=== PATIENT | male | born 1940 | race Caucasian/White ===

== ENCOUNTER → 2016-12-15 | Outpatient (CLI) | payer MEDICARE, OTHER ==
[~2016-12-15] MED LIST: ALEVE220 MG PO; ALLERGY RELIEF180 MG PO; AMLODIPINE BESY10 MG PO; ASPIRIN81 M1; CALCIMIN-300300 MG PO; CALCIUM CITRATE1 TA6; CLARITIN10 MG; CLONIDINE0.2 MG; COMBIGAN EYE DROP; DAILY MULTI VIT1 TAB PO; Diltiazem180 MG; LABETALOL200 MG; LIPITOR80 MG PO; MICARDIS HCT; MINIPRESS1 MG PO; MINIPRESS2 M1 PO; MULTIPLE VITAMI1 CAP PO; MULTIVITAMIN1 CTB; PLAVIX75 MG PO; POTASSIUM CHLOR8 ME1; PRAVACHOL80 M1 GT; PRAVASTATIN SOD40 MG PO; PROVENTIL0.09 MG/A1 INH; PROVENTIL0.09 MG/AC INH; RANITIDINE150 MG; THE MEDICINE S300 M1
== END | disposition home or self-care (01) ==
LOC: RAD 11:24
DX: M19.011 Primary osteoarthritis, right shoulder (principal)

== ENCOUNTER 2017-04-14 08:43 | Inpatient (IN) | payer MEDICARE, OTHER ==
[2017-04-14] VITALS (9 sets, daily range): BP systolic 98–174; BP diastolic 50–88
[~2017-04-14] VITALS: Ht 180.3 cm; Wt 100.0 kg
--- NOTE | ~2017-04-14 | PR ---
[place], [place] PROGRESS NOTE NAME: SRIDHAR RESTREPO UNIT #: [id number] ROOM: 403 DOCTOR: CRISTIAN SAL MD,ALIX BIRTHDATE: [birth year] DOS: 04/19/2017 PULMONARY FOLLOWUP SUBJECTIVE: The patient has been noted comfortable, continued to show reduction in the respiratory symptom. Denies symptoms of chest pain, hemoptysis. Denies any edema, pain of the lower extremities. VITAL SIGNS: Normal temperature, respiratory rate 20, heart rate 64, blood pressure 140/87. The pulse oxygen saturation of the patient is 3 liters 99% saturation. HEENT: No acute change. NECK: Supple. CARDIOVASCULAR: S1, S2 audible. LUNGS: Without any wheeze or crackles. ABDOMEN: Soft, nontender. EXTREMITIES: Without any acute edema. LABORATORY DATA: Culture of the sputum, normal jhoana. Blood culture ____ no bacterial growth. IMPRESSION: 1. The patient with resolving current nodular infiltration in the lung for the patient treated currently for the acute superimposed bacterial infection as well as involvement of the lung for the patient with human pneumometavirus for the patient as well. 2. Chronic obesity. 3. Resolving wheezing and exacerbation of bronchial asthma. PLAN OF TREATMENT: No changes. Proceed with bronchoscopy tomorrow as planned. No other change in treatment at this time otherwise will be necessary. All the supportive plan of management and care. Usual care. All other therapies. ALIX FOSTER MD CM:PNTRANS [phone] ALIX SAL MD 04/19/174 interface
--- NOTE | ~2017-04-14 | PR ---
[place], [place] PROGRESS NOTE NAME: SRIDHAR RESTREPO UNIT #: [id number] ROOM: 403 DOCTOR: CRISTIAN SAL MD,ALIX BIRTHDATE: [birth year] DOS: 04/21/2017 SUBJECTIVE: The patient just used the bathroom. As he came back, he was not using the oxygen supplementation. He went to the bathroom and noted significant tachypnea which was noted for this patient with shortness of breath. Coughing has been improving. The patient had bronchoscopy completed yesterday successfully without any difficulty. The cough has been noted significantly improved for the patient after that. OBJECTIVE: VITAL SIGNS: For the patient this morning were noted with normal temperature, respiratory rate 18, heart rate 74, blood pressure 150/78. Pulse oxygen saturation on 2 liters nasal cannula was 98% saturation. HEENT: Examination shows moderate obesity. Head was atraumatic. Eyes nonicterus. NECK: Supple. CARDIOVASCULAR: S1, S2 audible. LUNGS: Noted without any wheeze or crackles at this time. ABDOMEN: Soft, nontender. EXTREMITIES: Without any acute edema. LABORATORY DATA: Preliminary culture of the bronchial washing shows normal bacterial jhoana with Gram stain of yesterday, many white blood cells, rare gram-positive cocci in pairs, rare budding yeast and some mold was also noted in the fungal stain. CBC this morning, hemoglobin 12, hematocrit 36.1, WBC count normal, platelet count were normal. BMP of patient: BUN 30, creatinine was normal, glucose normal. IMPRESSION: 1. The patient who has been currently noted with nodular infiltration in the right lower lobe, status post bronchoscopy, still noted significant muscle deconditioning for this patient with current acute illness. The viral panel for the patient was also done for bronchial washing of the patient with pending results. 2. Abnormal MILENA for this patient was also noted, significance unknown at this time with current nodular opacities. Shortness of breath was still noted for the patient with combination of muscle deconditioning actually resolving, exacerbation of bronchial asthma. 3. Mild azotemia related to the corticosteroids. PLAN OF TREATMENT: The best recommendation at this time for the management will be assessment for the group home facility for physical therapy and occupational therapy. Gradual reduction of the corticosteroids. Continuation of the other supportive therapy, plan of management including bronchodilators. Usual care. [place], [place] PROGRESS NOTE NAME: SRIDHAR RESTREPO UNIT #: [id number] ROOM: 403 DOCTOR: ALIX GARVIN MD BIRTHDATE: [birth year] ALIX FOSTER MD CM:PNTRANS [id number] ALIX SAL MD 04/21/171728 interface
--- NOTE | ~2017-04-14 | PROC NOTE ---
[place], [place] PROCEDURE NOTE NAME: SRIDHAR RESTREPO UNIT #: [id number] ROOM: 403 DOCTOR: CRISTIAN SAL MD,ALIX BIRTHDATE: [birth year] DOS: 04/20/2017 PREOPERATIVE DIAGNOSIS: Abnormal pulmonary infiltration and nodular opacities in the right lower lobe. POSTOPERATIVE DIAGNOSES: Removal of several plugs and mucus endobronchial tree bilaterally with the additional washing was taken in the right lower lobe as well. PROCEDURE DESCRIPTION: Informed consent obtained. The patient brought to the OR. The patient placed in a supine position. Conscious sedation administered by the Anesthesia Department. After achieving appropriate sedation, airway introduced into the mouth. Bronchoscope advanced to the airway into laryngeal area. Epiglottis and vocal cords were seen. The vocal cords were noted symmetrical ____ assessed during the procedure. Bronchoscope entered vocal cord and tracheal lumen. Tracheal lumen shows moderate amount of thick mucoid secretion with purulent secretion suctioned out the yael level. The yael was noted sharp. Right upper, right middle, right lower, left upper, lingular lower bronchi were all examined and noted with thick plugs and mucus endobronchial tree bilaterally suctioned out with normal saline wash. Additional bronchial washing taken in the right lower lobe subsegments as well. The patient tolerated the procedure very well without difficulty. Postoperative findings were discussed with patient's spouse in detail. ALIX FOSTER MD CM:PROCNOTE:PROCEDURE NOTE [id number] ALIX SAL MD
--- NOTE | ~2017-04-14 | PR ---
[place], [place] PROGRESS NOTE NAME: SRIDHAR RESTREPO UNIT #: [id number] ROOM: 403 DOCTOR: CRISTIAN SAL MD,ALIX BIRTHDATE: [birth year] DOS: 04/16/2017 SUBJECTIVE: The patient has been still noted coughing, which has been noted with minimal sputum expectoration. Denies symptoms of chest pain. Still feeling ill. Denies symptoms of chest pain or any abdominal pain. The patient was noted shortness of breath with exertion, but not at rest. OBJECTIVE: VITAL SIGNS: Normal temperature, respiratory 21, heart rate 72, blood pressure 155/80-147/82. The pulse oxygen saturation on 4 liters nasal cannula 94% saturation recorded. HEENT: Examination shows no acute change. NECK: Supple. CARDIOVASCULAR: S1, S2 audible. LUNGS: Still noted crackles in the lower portion of the lungs bilaterally. ABDOMEN: Soft, nontender. EXTREMITIES: No edema. LABORATORY DATA: BMP today: BUN 33, creatinine 1.41, glucose 134. CBC this morning, hemoglobin 11.7, hematocrit 34.8, platelet count was normal. Blood culture for patient shows no bacterial growth, 12th of this month. Final culture results were pending. Influenza A and B nasal washing noted negative. The respiratory viral panel was sent, which was pending. CT scan of the chest that was done for the patient was personally reviewed, shows evidence of multiple nodular infiltration noted in the lungs bilaterally following the bronchovascular bundle. The nodule which was noted in the right lower lobe is also correlating to the chest x-ray finding as well. IMPRESSION: 1. The patient who has been currently noted with symptoms or findings of acute pneumonia, but nodular opacity was noted in the lungs bilaterally at the present time. The nodules are following the bronchovascular bundle. Possibility of pneumonia would be considered along with other differential diagnosis of septic emboli and other illnesses. The patient would be also considered for such as vasculitis, connective tissue disorder and other abnormalities. 2. History of moderate obesity. 3. Bronchial asthma with acute exacerbation as well. PLAN OF MANAGEMENT: The patient's antibiotic coverage will be changed for the coverage of gram positive infection coverage as vancomycin will be added to the treatment. The dose of Solu-Medrol at this time will be decreased. Interstitial disease workup and vasculitis workup will be ordered, which will be taken today. Collect the sputum for Gram stain and culture if the patient is able to expectorate any sputum. Additional treatment changes to be done for this patient based on the progression of the illness. Usual care. All other supportive plan of management and therapies. [place], [place] PROGRESS NOTE NAME: SRIDHAR RESTREPO UNIT #: [id number] ROOM: [facility] DOCTOR: AILX GARVIN MD BIRTHDATE: [birth year] ALIX FOSTER MD CM:AURA [id number] ALIX SAL MD 04/16/17 1305 interface
--- NOTE | ~2017-04-14 | PROC NOTE ---
[place], [place] PROCEDURE NOTE NAME: SRIDHAR RESTREPO UNIT #: [id number] ROOM: 403 DOCTOR: SADE BLAND BIRTHDATE: [birth year] DOS: 04/17/2017 MODIFIED BARIUM SWALLOW STUDY REPORT PRIMARY PHYSICIAN: Dr. Amador RADIOLOGIST: Dr. Benítez ROOM NUMBER: 403/2 HISTORY OF PRESENT ILLNESS: The patient is a 76-year-old male admitted on 04/14/2017 due to shortness of breath. Chest x-ray revealed "new bibasilar infiltrates" and patient was diagnosed with right lower lobe pneumonia. MBSS order placed to assess for aspiration. Patient has been receiving a regular diet with thin liquids. PREVIOUS MEDICAL HISTORY: Includes recurrent pneumonia, COPD, CHF, CVA, obesity and hypertension. GENERAL COMMENTS: The patient remained awake, alert and cooperative throughout the exam. He denied difficulty swallowing, including coughing/choking while eating or drinking. Patient endorsed history of reflux, which he is managing with medication. Also, endorsed occasional sticking sensation when eating/drinking (pointed to mid chest to indicate where sensation occurs). He reported that he was tolerating a regular diet with thin liquids prior to hospitalization. Patient noted that he is naturally a slow eater. MBSS METHODS; This exam was viewed in the lateral plane. The patient self-fed the following barium impregnated consistencies: Single sips of thin liquid via cup x 2, multiple consecutive sips of thin liquid via cup x 1, teaspoon of puree x 1 and bite of coarse solid x 1. Anterior cervical hardware noted at C4-C5. ORAL PHASE: Adequate bolus acceptance with no anterior loss. AP bolus transit was timely. Mastication of coarse solid was mildly prolonged, but complete. Posterior loss noted with puree/solids. No oral residue appreciated. PHARYNGEAL PHASE: Initiation of the swallow response was timely. HLE was adequate in both the superior and anterior planes. Transient penetration noted with sips of thin liquids. No aspiration observed with any consistency. Base of tongue to posterior pharyngeal wall contact mildly reduced with subsequent mild amounts of residue maintained in vallecula with puree/solids. This cleared with subsequent swallows. UES: Unremarkable. IMPRESSION: The patient presents with mild oropharyngeal dysphagia classified by prolonged mastication, posterior loss, transient penetration and reduced base of tongue to posterior pharyngeal wall contact. No aspiration was observed during this exam and the patient remains appropriate for a regular diet with thin liquids. Patient's aspiration risk factors include mild dysphagia, history [place], [place] PROCEDURE NOTE NAME: SRIDHAR RESTREPO UNIT #: [id number] ROOM: 403 DOCTOR: SADE BLAND BIRTHDATE: [birth year] of CVA and diagnosis of GERD and COPD. Adherence to precautions below is recommended to reduce this risk. RECOMMENDATIONS: 1. Continue current diet: Regular foods with thin liquids. 2. Aspiration precautions: Fully upright, awake and alert for all p.o., small bites/sips, slow rate of feeding, oral care at least b.i.d. Findings and recommendations were reviewed with the patient who expressed understanding and agreement. PLAN OF CARE: No further GROUNDS PERSON followup is indicated at this time. Please reconsult if additional concerns for aspiration/dysphagia arise. Thank you for consulting. Please contact the Speech Language Pathology Department at [phone] with any questions or concerns. Sade Laboy CM:PROCNOTE:PROCEDURE NOTE [id number] SAED BLAND
--- NOTE | ~2017-04-14 | PR ---
[place], [place] PROGRESS NOTE NAME: SRIDHAR RESTREPO UNIT #: [id number] ROOM: 403 DOCTOR: CRISTIAN SAL MD,ALIX BIRTHDATE: [birth year] DOS: 04/18/2017 SUBJECTIVE: He has been noted with partial reduction of the respiratory symptom at this time. Denies symptoms of chest pain or any abdominal pain. The patient denies symptoms of hemoptysis. The oxygen supplementation continued. The wheezing was noted partially decreased. OBJECTIVE: VITAL SIGNS: Normal temperature, respiratory rate 20, heart rate 56, blood pressure 152/78, 126/72. Pulse oxygen saturation of the patient noted 2 liters 96% saturation. HEAD, EARS, EYES, NOSE AND THROAT: Examination shows no acute change. NECK: Supple. CARDIOVASCULAR: S1, S2 is audible. LUNGS: The patient was noted with moderate expiratory wheezing of the lungs. ABDOMEN: Soft, nontender. Bowel sounds present. CENTRAL NERVOUS SYSTEM: Noted. Nonfocal. LABORATORY DATA: Parainfluenza 1 virus with a level was noted elevated serology went into 16 ____ antibody were noted as negative. Urine for legionella antigen was noted as negative and strep pneumo antigen was noted negative as well. The chest x-ray of the patient that was done this morning, showed reduction of the pulmonary infiltration. IMPRESSION: 1. The patient's parainfluenza infection as well as a human metapneumovirus infection with possibly superimposed bacterial infection with ongoing acute exacerbation of bronchial asthma. The patient was noted with gradual improvement in the respiratory symptom. 2. Nodular opacity was noted related to possible infection other etiology being considered and being investigated. PLAN OF MANAGEMENT: Plan of bronchoscopy on Thursday morning as well. In the meantime, continue the patient on bronchodilators, oxygen supplementation and the corticosteroids. The dose of Solu-Medrol will be decreased to 40 mg b.i.d. at this time. Additional treatment changes, continue be made based on progression of the illness. The n.p.o. past midnight for midnight of Thursday. Recommend to discontinue all of the other antibiotic. The only antibiotic might need to be considered would be a short spectrum antibiotic either Zithromax, Levaquin or similar antibiotics. There is no need for a very broad-spectrum intravenous antibiotic usage. [place], [place] PROGRESS NOTE NAME: SRIDHAR RESTREPO UNIT #: [id number] ROOM: 403 DOCTOR: ALIX GARVIN MD BIRTHDATE: [birth year] ALIX FOSTER MD CM:AURA [id number] ALIX SAL MD 04/18/17 1506 interface
--- NOTE | ~2017-04-14 | PR ---
[place], [place] PROGRESS NOTE NAME: SRIDHAR RESTREPO UNIT #: [id number] ROOM: 403 DOCTOR: CRISTIAN SAL MD,ALIX BIRTHDATE: [birth year] DOS: 04/17/2017 SUBJECTIVE: The patient was seen and examined on 04/17/2017. He has been noted at this time with partial reduction of respiratory symptoms, still noted coughing and wheezing intermittently. Denies symptoms of chest pain. Shortness of breath occurs with exertion, general malaise and fatigue were noted. OBJECTIVE: VITAL SIGNS: For the patient which has been recorded shows the temperature noted normal, respiratory rate 20, heart rate 65, blood pressure 131/60 to 128/64. The pulse oxygen saturation on 3 liters nasal cannula 97% saturation recorded. HEENT: No acute change. NECK: Supple. CARDIOVASCULAR: S1, S2 audible. LUNGS: Noted with moderate decreased breath sounds with expiratory wheezing. No crackles. ABDOMEN: Soft, nontender with moderate obesity. Bowel sounds present. EXTREMITIES: Without any edema. LABORATORY DATA: The patient's CBC today: WBC count 7.5, hemoglobin 11, hematocrit 33.1, platelet count 161,000. CMP of the patient on 04/17/2017, BUN 38, creatinine was normal, glucose 127. Magnesium 2.7. Respiratory viral panel that was sent became available, noted positive for human metapneumovirus positivity. C-reactive protein was noted mildly elevated. ESR noted 44, mildly elevated as well. Echocardiogram of the patient was completed on 04/16/2017 was stated by the Cardiology service of Dr. Alvarado had finding of left ventricular ejection fraction of 60-65% with mild diastolic dysfunction and remaining echocardiogram was noted normal. The blood culture for the patient from 12th of this month, so far no bacterial growth noted. IMPRESSION: The patient who has been currently noted with human metapneumovirus infection with a lower respiratory tract infection, which has been seen in this virus as pneumonia; however, the appearance of those infiltration noted usual with nodular configuration. Superimposed bacterial infection can be completely excluded as well. Additional diagnosis of noninfectious has been noted in consideration as well. PLAN OF TREATMENT: No change in antibiotic needs to be done. Continue bronchodilators and corticosteroids with oxygen supplementation as necessary. Symptomatic management of cough. The patient has been getting Levaquin for this patient at the present time. Repeat another chest x-ray in the morning. Possibly consideration of bronchoscopy in the morning as well. The wheezing for this patient may last several weeks, which has been described in the description of this virus illness. Additional treatment changes continues to be made based on the progression of the illness. [place], [place] PROGRESS NOTE NAME: SRIDHAR RESTREPO UNIT #: [id number] ROOM: [facility] DOCTOR: ALIX GARVIN MD BIRTHDATE: [birth year] ALIX FOSTER MD CM:PNMARIANA [id number] ALIX SAL MD 04/17/172205 interface
--- NOTE | ~2017-04-14 | CON ---
[place], [place] REPORT OF CONSULTATION NAME: SRIDHAR RESTREPO UNIT #: [id number] ROOM: 403 DOCTOR: YOHANNES GARVIN MDULAM BIRTHDATE: [birth year] DOS: 04/15/2017 REASON FOR CONSULTATION: To assess the patient for current ongoing acute respiratory complaints. The consultation was requested for this patient. Consultation was done for the patient requested by the hospitalist services HISTORY OF PRESENT ILLNESS: The patient is a 76-year-old white male for the patient who has been treated by ____. He had been seen in the office couple of times the patient is 2007, but has not had any followup since then. The patient was noted with 5 mm pulmonary nodule at this time in the right lower lobe. He came into the hospital. The patient reported having increased shortness of breath ongoing for the past few days. He stated the symptoms started after some cold symptoms of the patient prior to that. He has been noted with cough for this patient with some sputum expectoration. He was also noted with symptoms of increased wheezing. He denies any symptoms of chest pain. Denies any symptoms of hemoptysis. REVIEW OF SYSTEMS: CONSTITUTIONAL: Fatigue and tiredness reported without symptoms of fever or chills. EYES: Denies any burning, redness, or tenderness. EARS, NOSE, THROAT SYMPTOMS: Sore throat, hoarseness, otalgia, postnasal drainage or epistaxis. CARDIOVASCULAR: Denies angina pain, edema, or pain of the lower extremity. GASTROINTESTINAL: Dysphagia, nausea, vomiting, diarrhea, abdominal pain, hematemesis, melena, or hematochezia. SKIN: Denies any lesions or rashes. CENTRAL NERVOUS SYSTEM: No dizziness, diplopia or syncopal episodes. Remaining systems were reviewed with the patient, they were noted all negative. PAST MEDICAL HISTORY: 1. The patient was known with history of essential hypertension. 2. Abdominal aortic aneurysm. 3. Bronchial asthma. 4. Chronic obstructive pulmonary disease. 5. Pulmonary nodule with mild mediastinal lymphadenopathy. The patient in 2007 without further followup and further followups unknown. 6. History of CVA for this patient in 2013. 7. Degenerative arthritis. PAST SURGICAL HISTORY: 1. Abdominal endovascular stent placement and graft in 2013. 2. History of appendectomy. 3. Hernia repair. 4. Cardiac catheterization and coronary stents insertion. 5. Three back surgeries. 6. Cervical spine surgery as laminectomy. 7. Surgery of the right hip. [place], [place] REPORT OF CONSULTATION NAME: SRIDHAR RESTREPO UNIT #: [id number] ROOM: 403 DOCTOR: CRISTIAN SAL MD,ALIX BIRTHDATE: [birth year] SOCIAL HISTORY: The patient started smoking cigarettes as a teenager, upto 1.5 pack of cigarettes per day, which was discontinued approximately in 1994. He denies any occupation related pulmonary exposure. The patient drinks 1 beer a day. The patient is and has six children. FAMILY HISTORY: The patient's mother at the age of about 50 years old patient for pulmonary embolism. The father at age of 60+ years old for complication of multiple myeloma. MEDICATIONS: The home medications were reported as use of Proventil HFA inhaler, Norvasc, aspirin, Lipitor, calcium carbonate, Plavix, fexofenadine, which is Marti, labetalol, multivitamin, Prevacid, ranitidine and Micardis with hydrochlorothiazide. DRUG ALLERGIES: He reported allergy to the LISINOPRIL CAUSING ANGIOEDEMA. PHYSICAL EXAMINATION: GENERAL: This is a 76-year-old white male who has been currently sitting on the bed without any acute distress. The patient's height recorded 5 feet 11 inches, weight of 220 pounds, BMI 30.7 by the nursing staff. VITAL SIGNS: The patient's temperature noted normal, respiratory rate 18-24, heart rate 75-80, blood pressure 181/73-130/70. The intake for the patient was noted 1290 mL, output 900 mL. Pulse oxygen saturation with 3 liters cannula was 92% and a room air on admission 89% saturation recorded. HEENT: Shows head was atraumatic. Eyes nonicterus. NECK: Supple. CARDIOVASCULAR: S1, S2 is audible. LUNGS: Noted moderate decreased breath sounds, scattered expiratory wheezing and crackles in the lungs bilaterally. ABDOMEN: Noted soft, mild obesity. Bowel sounds present. EXTREMITIES: Without any edema, clubbing, cyanosis. CENTRAL NERVOUS SYSTEM: Does not show any gross focal neurologic deficit. Cranial nerves 2-12 intact. SKIN: Visible skin, no lesions or rashes. MUSCULOSKELETAL: Without any acute deformities. LABORATORY DATA: CBC done on admission 04/12/2017 WBC count 3.7, hemoglobin 11.3, hematocrit 33.1, platelet count was normal. The CMP of the patient that was done on admission, BUN 22, creatinine 1.44, glucose 138, AST 51. Remaining LFTs were normal. Lactic acid 0.9 yesterday. CBC of the patient this morning, WBC count 4.7, hemoglobin 12, hematocrit 35.0, platelet count was normal. CMP this morning, BUN 22, creatinine 1.34, glucose 150. AST still elevated at 46. The PT, PTT this morning were normal. One view chest x-ray that was done for the patient this morning for the patient was personally reviewed. It shows increased interstitial marking the patient was noted, possibility of nodules. The patient in the right lower lobe cannot be completely excluded. There was no lateral view available. There was no recent chest x-ray available for the patient in the past one year or so to be assessed. The chest x-ray of the patient that was done on 04/16/2017 does not show any of these abnormalities. [place], [place] REPORT OF CONSULTATION NAME: SRIDHAR RESTREPO UNIT #: [id number] ROOM: 403 DOCTOR: CRISTIAN SAL MD,ALIX BIRTHDATE: [birth year] IMPRESSION: 1. The patient who has been admitted to the hospital, was noted with increased respiratory symptom current radiologic abnormality, possible consideration of congestive heart failure would be considered along with possibility of acute pneumonia including viral syndrome for the patient viral pneumonia. 2. The patient with elevation of creatinine. The patient has underlying chronic kidney disease or not unknown. Possibility acute kidney injury. The patient could be considered may be related to the prerenal and intravascular volume depletion. 3. History of past tobacco use with tobacco cessation done in 1994 approximately as 1-1.5 pack of cigarettes per day. The patient assessment in 2004 rather 2007, but noted consistent with diagnosis of bronchial asthma, not COPD at that time. However, interval development of COPD, which may have developed the patient can be completely excluded. 4. Leukopenia, etiology is unclear, may be related to the underlying infection or other reasons to be assessed including bone marrow problems. 5. Rule out to pulmonary nodule for the patient more than the side, which was previous noted to be assessed further. 6. Rule out interstitial lung disease because of the current crackles. 7. Acute exacerbation of bronchial asthma considered. PLAN OF MANAGEMENT: Best defined for the patient current abnormality. CT scan of the chest will be ordered at the present time for this patient without contrast because of elevation of creatinine. Further recommendation assessment will be ordered based on the current assessment. The patient was also noted with the leukopenia and mild anemia. The patient may be related to current illness to be assessed. Ordered the nasopharyngeal wash for this patient for the influenza infection and the viral panel. Other supportive therapy, plan of management and care. Usual treatment. Additional treatment changes to be made for the patient based on the progression of the illness. Usual care. All other supportive plan of management and therapies. Review of the CT scan of the chest once available for the patient as well. Also ordered the routine culture of the sputum as well. Thanks for allowing me to participate in the care of this patient. ALIX FOSTER MD CM:CONSTR:REPORT OF CONSULTATION 0928 04/15/17 1422 interface
--- NOTE | ~2017-04-14 | PR ---
[place], [place] PROGRESS NOTE NAME: SRIDHAR RESTREPO UNIT #: [id number] ROOM: 403 DOCTOR: CRISTIAN SAL MD,ALIX BIRTHDATE: [birth year] DOS: 04/22/2017 SUBJECTIVE: He has been noted without any acute distress at the present time. Shortness of breath has been still noted with exertion. He has been assessed for home oxygen need as well. The retirement facility placement has been denied by the insurance. The patient was planned for home discharge today by the primary care attending. OBJECTIVE: VITAL SIGNS: The patient's blood pressure 150/72, heart rate of 65, respiration 18, temperature normal. The pulse oxygen saturation of the patient recorded as 96% on 2 liters. HEENT: No acute change. NECK: Supple. CARDIOVASCULAR: S1, S2 audible. LUNGS: Without any wheeze or crackles at present time. ABDOMEN: Soft, nontender. EXTREMITIES: Without any acute edema. IMPRESSION: 1. The patient with acute pneumonia with a human metapneumovirus with acute exacerbation of COPD, all resolving progressively. 2. Reduced complement level. The patient was also noted with abnormal MILENA, but anti-double stranded DNA was noted as negative. PLAN OF MANAGEMENT: No changes in the plan of therapy for the patient at this time. Continue the patient's current therapy, plan of care as previously. Usual care. After discharge, patient is recommended about assessment in my office for further pulmonary assessment. ALIX FOSTER MD CM:PNTRANS 114 [id number] ALIX SAL MD 04/22/171821 interface
--- NOTE | ~2017-04-14 | PR ---
[place], [place] PROGRESS NOTE NAME: SRIDHAR RESTREPO UNIT #: [id number] ROOM: 403 DOCTOR: ALIX GARVIN MD BIRTHDATE: [birth year] DOS: 04/20/2017 SUBJECTIVE: The patient has been noted comfortable at this time, sitting on his bed. He was n.p.o. past midnight and bronchoscopy planned for today. Still noted intermittent cough. The patient without any sputum expectoration or shortness of breath and wheezing were noted decreased. There were no symptoms of chest pain or any abdominal pain. OBJECTIVE: VITAL SIGNS: For the patient which were recorded. The patient shows normal temperature, respiratory rate of 20, heart rate 62, blood pressure 131/62. Pulse oxygen saturation on 2 liters nasal cannula 96% saturation. HEENT: No acute change. NECK: Supple. CARDIOVASCULAR: S1, S2 audible. LUNGS: The patient was noted without any wheezing or crackles. ABDOMEN: Soft and obese. EXTREMITIES: Without any acute edema. SKIN: Without any lesions. LABORATORY DATA: The connective tissue disorder workup for the patient became available. The patient's MILENA was noted abnormal with a homogenous and nucleolar pattern for the patient with the dilution of 1:160 was noted. These findings were noted sometimes in people with CREST syndrome, SLE drug induced or other etiologies. Creatinine was noted as normal today. CBC this morning, mild anemia, normal WBC count and platelet count. IMPRESSION: 1. Nodular infiltration of the lungs with the patient with current finding of acute exacerbation of bronchial asthma in the patient as well. 2. Infection which has been noted with the respiratory viral infection as human metapneumovirus infection isolated from the nasopharyngeal wash. PLAN OF TREATMENT: Proceed with the bronchoscopy as planned for this patient at this time. Additional treatment changes will be made based on progression of the illness. Titrate oxygen to maintain a saturation of 92% or greater. Reduce the dose of Solu-Medrol for patient 40 mg b.i.d. as well. The wheezing has been improving. Continue bronchodilators administration. Supportive therapy, plan of management and other care. Usual treatment, and other therapies. [place], [place] PROGRESS NOTE NAME: SRIDHAR RESTREPO UNIT #: [id number] ROOM: 403 DOCTOR: ALIX GARVIN MD BIRTHDATE: [birth year] ALIX FOSTER MD CM:PNTRANS [id number] ALIX SAL MD 04/21/17 0106 interface
[~2017-04-14 08:43] MED LIST changes: -CALCIUM CITRATE1 TA6; +CALCIUM500 M1 PO
[2017-04-14 09:41] LABS: BASO % 0.3 % (0.0-1.0); EOS # 0.1 10*3/uL (0.0-0.4); EOS % 2.2 % (1.0-4.0); HEMATOCRIT 33.1 % (42.0-52.0); HEMOGLOBIN 11.3 g/dl (14.0-18.0); LYMPH # 0.4 10*3/uL (1.3-4.4); MEAN CELL VOLUME 93.2 fl (80.0-94.0); MEAN CORPUSCULAR HGB 31.8 pg (27.0-31.0); MEAN CORPUSCULAR HGB CONC 34.1 g/dl (33.0-37.0); MEAN PLATELET VOLUME 10.1 fl (9.6-12.3); MONO # 0.5 10*3/uL (0.1-1.0); MONO % 12.3 % (3.0-9.0); NEUT # 2.7 10*3/uL (2.3-7.9); NEUT % 72.9 % (47.0-73.0); PLATELET COUNT AUTOMATED 141 10*3/uL (130-400); RED BLOOD COUNT 3.55 10*6/uL (4.50-5.90); RED CELL DISTRI WIDTH 13.6 % (0-14.5); WHITE BLOOD COUNT 3.7 10*3/uL (4.8-10.8)
[2017-04-14 09:57] LABS: ALBUMIN 3.4 gm/dl (3.1-4.5); CREATININE 1.44 mg/dL (0.70-1.30); POTASSIUM 4.3 mmol/L (3.5-5.1)
--- NOTE | 2017-04-14 12:59 | NUR ---
A 76, admitted to , under the services of SRIDHAR Velásquez DO with a diagnosis of RIGHT LOWER LOBE PNEUMONIA. Chief complaint is SOB. Patient arrived via bed from ER. Monitor applied. Initial assessment completed. Vital signs taken and recorded. SRIDHAR VELÁSQUEZ DO notified of admission to the unit. Orders received. See assessment for past medical history, medications and allergies. Patient and/or family oriented to unit. [facility] visitation policy reviewed. Clothing/patient valuable form completed. JOANNA DICK
--- NOTE | 2017-04-14 13:30 | NUR ---
DR BAL NOTIFIED OF ADMISSION BP. NO NEW ORDERS.
--- NOTE | 2017-04-14 14:19 | NUR ---
MED REC UPDATED BY LIST PROVIDED BY PATIENT.
--- NOTE | 2017-04-14 17:22 | NUR ---
PHYSICIAN WAS NOTIFIED OF DR. CRISTIAN DODSON. RESPONSE OF NOTIFICATION WAS OK THANK YOU. JOANNA DICK
--- NOTE | 2017-04-14 19:34 | NUR ---
AT 1840 PT INSTRUCTED ON FLUTTER VALVE.PT INSTRUCTED TO USE Q2HRS WHILE AWAKE..NON PRODUCTIVE COUGH NOTED
[2017-04-15] VITALS: BP 160/67
[2017-04-15 04:01] VITALS: BP 156/72
[2017-04-15 08:00] VITALS: BP 181/73
--- NOTE | 2017-04-15 08:15 | NUR ---
Wellness Nurse in to talk to patient. Patient states lives at home with his . There are 4 steps in the home. Physician: Dr. Jim Miller Pharmacy: [facility] services: none Patient's level of ADLs: MINIMAL ASSIST Patient has working utilities: yes DME: cane Follow-up physician's appointment after d/c: will be made by hospitalist nurse director upon discharge Does patient want to access PORTAL?: no Discharge plan discussed with patient. He live at home with his . There are 4 steps to get into the home. There is also a wheelchair ramp. He is independent in his ADLs and uses a cane for ambulation due to hip pain. When medically stable he will be discharged to home. WARNER GALAN
[2017-04-15 08:22] LABS: ALBUMIN 3.5 gm/dl (3.1-4.5); BUN 22 mg/dl (7-24); CHLORIDE 102 mmol/L (98-107); CREATININE 1.34 mg/dL (0.70-1.30); HDL CHOLESTEROL 39 mg/dl (40-60); SGOT/AST 46 IU/L (3-35); SGPT/ALT 64 U/L (12-78); SODIUM 138 mmol/L (136-145); TOTAL PROTEIN 7.4 gm/dL (6.4-8.2)
[2017-04-15 08:23] LABS: LYMPH # 0.4 10*3/uL (1.3-4.4); LYMPH % 9.4 % (27.0-41.0); MEAN CELL VOLUME 93.8 fl (80.0-94.0); MEAN CORPUSCULAR HGB 32.2 pg (27.0-31.0); MEAN CORPUSCULAR HGB CONC 34.3 g/dl (33.0-37.0); MEAN PLATELET VOLUME 10.4 fl (9.6-12.3); MONO # 0.3 10*3/uL (0.1-1.0); PLATELET COUNT AUTOMATED 159 10*3/uL (130-400); RED BLOOD COUNT 3.73 10*6/uL (4.50-5.90); RED CELL DISTRI WIDTH 13.2 % (0-14.5); WHITE BLOOD COUNT 4.7 10*3/uL (4.8-10.8)
[2017-04-15 08:26] LABS: POTASSIUM 4.2 mmol/L (3.5-5.1)
[2017-04-15 08:34] LABS: ALKALINE PHOSPHATASE 77 U/L (45-117); CHOLESTEROL 169 mg/dL (<200); LDL CHOLESTEROL 98 mg/dL (9-159); TRIGLYCERIDES 158 mg/dl (<150); VLDL CHOLESTEROL 32 mg/dL (6-40)
[2017-04-15 08:50] LABS: PHOSPHOROUS 3.5 mg/dL (2.5-4.9)
[2017-04-15 09:03] LABS: ACT PARTIAL THROMBO TIME 24.9 SECONDS (20.8-31.5)
[2017-04-15 09:53] LABS: VITAMIN D, 25-HYDROXY 25.1 ng/mL (30-100)
[2017-04-15 12:00] VITALS: BP 153/69
[2017-04-15 16:00] VITALS: BP 155/58
[2017-04-15 20:00] VITALS: BP 156/50
[2017-04-16] VITALS: BP 147/82
--- NOTE | 2017-04-16 00:36 | NUR ---
24 HR chart check completed.
[2017-04-16 07:23] LABS: HEMATOCRIT 34.8 % (42.0-52.0); HEMOGLOBIN 11.7 g/dl (14.0-18.0); LYMPH # 0.5 10*3/uL (1.3-4.4); LYMPH % 7.3 % (27.0-41.0); MEAN CELL VOLUME 94.1 fl (80.0-94.0); MEAN CORPUSCULAR HGB 31.6 pg (27.0-31.0); MEAN CORPUSCULAR HGB CONC 33.6 g/dl (33.0-37.0); MEAN PLATELET VOLUME 10.8 fl (9.6-12.3); MONO # 0.4 10*3/uL (0.1-1.0); MONO % 4.8 % (3.0-9.0); NEUT # 6.4 10*3/uL (2.3-7.9); NEUT % 87.5 % (47.0-73.0); PLATELET COUNT AUTOMATED 190 10*3/uL (130-400); RED CELL DISTRI WIDTH 13.5 % (0-14.5); WHITE BLOOD COUNT 7.3 10*3/uL (4.8-10.8)
[2017-04-16 07:55] LABS: ALBUMIN 3.6 gm/dl (3.1-4.5); CREATININE 1.41 mg/dL (0.70-1.30); PHOSPHOROUS 3.6 mg/dL (2.5-4.9); POTASSIUM 4.6 mmol/L (3.5-5.1); TOTAL PROTEIN 7.4 gm/dL (6.4-8.2)
[2017-04-16 08:00] VITALS: BP 155/82
--- NOTE | 2017-04-16 08:00 | NUR ---
Health Education Director in to see patient. No new needs or request at this time. When medically stable he will be discharged to home.
--- NOTE | 2017-04-16 08:00 | NUR ---
PT SITTING UP IN BED, STATES SOME SOB AT REST AND WITH EXERTION, PT STILL HAS I&E WHEEZES HEARD THROUGHOUT, STATES HE IS STARTING TO HAVE A PRODUCTIVE COUGH-SPUTUM CUP PROVIDED, 4L NC INTACT. HRR, PT DENIES CP, STATES SOME RIB PAIN FROM COUGHING, PT DENIES ANY NEED FOR PAIN MEDS, TRACE EDEMA NOTED TO BLE. CALL LIGHT WITHIN REACH.
[2017-04-16 12:00] VITALS: BP 140/69
--- NOTE | 2017-04-16 13:52 | NUR ---
PHYSICAL THERAPY PAtient evaluated on 4, full evaluation to follow. Continue with PT as per plan of carw with fall, 02 and acute debility precautions. Home with home health RN and PT and radhames mcgee assist. PAtient is mooderate complexity via chart review, tests and evaluation: [id number]. Thank you for this referral. Suzanna Lechuga,PT
[2017-04-16 15:09] LABS: MYCOPLASMA PNEUMONIAE IGG <100 U/mL (0-99); MYCOPLASMA PNEUMONIAE IGM <770 U/mL (0-769)
[2017-04-16 16:00] VITALS: BP 152/73
--- NOTE | 2017-04-16 16:00 | NUR ---
PT RESTING IN BED, NO DISTRESS NOTED. CALL LIGHT WITHIN REACH.
[2017-04-16 20:00] VITALS: BP 127/82
[2017-04-17] VITALS: BP 146/69
--- NOTE | 2017-04-17 00:21 | NUR ---
24 HR chart check completed.
[2017-04-17 02:07] LABS: ADENOVIRUS Negative (Negative); INFLUENZA A Negative (Negative); INFLUENZA B Negative (Negative); METAPNEUMOVIRUS Positive (Negative); PARAINFLUENZA 1 Negative (Negative); PARAINFLUENZA 2 Negative (Negative); PARAINFLUENZA 3 Negative (Negative); RHINOVIRUS Negative (Negative); RSV A Negative (Negative); RSV B Negative (Negative)
[2017-04-17 07:07] LABS: IMMUNOGLOBULIN IgE 002170 23 IU/mL (0-100)
[2017-04-17 07:23] LABS: HEMATOCRIT 33.1 % (42.0-52.0); LYMPH # 0.6 10*3/uL (1.3-4.4); LYMPH % 8.2 % (27.0-41.0); MEAN CORPUSCULAR HGB 31.3 pg (27.0-31.0); MEAN CORPUSCULAR HGB CONC 33.2 g/dl (33.0-37.0); MEAN PLATELET VOLUME 10.3 fl (9.6-12.3); MONO # 0.5 10*3/uL (0.1-1.0); MONO % 6.2 % (3.0-9.0); NEUT # 6.3 10*3/uL (2.3-7.9); NEUT % 84.5 % (47.0-73.0); PLATELET COUNT AUTOMATED 161 10*3/uL (130-400); RED BLOOD COUNT 3.52 10*6/uL (4.50-5.90); RED CELL DISTRI WIDTH 13.3 % (0-14.5); WHITE BLOOD COUNT 7.5 10*3/uL (4.8-10.8)
[2017-04-17 07:37] LABS: ALBUMIN 3.2 gm/dl (3.1-4.5); ALKALINE PHOSPHATASE 62 U/L (45-117); BUN 38 mg/dl (7-24); CHLORIDE 102 mmol/L (98-107); PHOSPHOROUS 3.2 mg/dL (2.5-4.9); POTASSIUM 4.6 mmol/L (3.5-5.1); SGOT/AST 33 IU/L (3-35); SGPT/ALT 60 U/L (12-78); SODIUM 139 mmol/L (136-145); TOTAL PROTEIN 6.6 gm/dL (6.4-8.2)
[2017-04-17 08:00] VITALS: BP 128/64
[2017-04-17 08:14] LABS: IMMUNOGLOBULIN M, QNT 43 mg/dL (15-143); RHEUMATOID ARTHRITIS FACTOR <10.0 IU/mL (0.0-13.9)
--- NOTE | 2017-04-17 08:15 | NUR ---
Branch Office Administrator in to see patient. He is sitting up on the edge of his bed. Discussed home health for nurse and PT when he is medically stable to be discharged. Given a list of agencies. He states he would like to use whoever is affiliated with the hospital. Told him that was [facility] and he is agreeable. tool planner/social and political studies professor to follow.
--- NOTE | 2017-04-17 08:25 | NUR ---
PHYSICAL THERAPY Pt eating his breakfast at this time, will stop back later. HELEN SHETTY PROJECT MANAGER FINANCE.
--- NOTE | 2017-04-17 10:39 | NUR ---
PHYSICAL THERAPY Back this AM to gait Higinio, Pt finished with his breakfast, Alll transfers were independent. Gait with Pt's straight cane 390' X 1, on portable o2 at 4 L with supervision X 1, no LOB and did not get SOB with this. Pt said that he is doing Ex to his legs, marching, LAQ's, and ankle pumps. HELEN SHETTY DATA CONVERSION OPERATOR.
[2017-04-17 12:00] VITALS: BP 131/65
--- NOTE | 2017-04-17 14:00 | NUR ---
PT. ASSESSED FOR HOME O2: AT REST ON RA: SPO2 92%, HR 82, RR 20, BP 122/55 AMBULATING 20FT PT'S SPO2 DROPPED TO 87% WITH INCREASED WOB O2 APPLIED AT 2L AND SPO2 IMPROVED TO 94%, PT. AMBULATED AN ADDITIONAL 200FT WITH SPO2 REMAINING AT 94% AFTER AMBLUATION SPO2 96%, HR 86, RR 24, BP 150/100 NURSE NOTIFIED
--- NOTE | 2017-04-17 14:49 | NUR ---
SPEECH PATHOLOGY CONSULT RECEIVED AND APPRECIATED TO INSTRUMENTALLY EVALUATE PT'S OROPHARYNGEAL SWALLOW FUNCTION. GENERAL COMMENTS: PT SEEN AT BEDSIDE FOR CLINICAL EVALUATION AND IN RADIOLOGY FOR MBSS. MR. RESTREPO WAS AWAKE, ALERT, AND COOPERATIVE THROUGHOUT BOTH ENCOUNTERS. HE WAS RECEIVING 3L O2/NC. PT DENIED H/O SWALLOWING DIFFICULTY INCLUDING COUGHING/CHOKING WHEN EATING OR DRINKING. HE ENDORSED REFLUX WHICH HE IS MANAGING WITH MEDICATION AND ENDORSED OCCASIONAL STICKING SENSATION WHEN EATING/DRINKING (POINTED MIDCHEST TO INDICATE WHERE SENSATION OCCURS). MR. RESTREPO REPORTED HE HAS BEEN TOLERATING A REGULAR DIET WITH THIN LIQUIDS AND NOTED THAT HE IS A SLOW EATER. ORAL MECHANISM AND MOTOR SPEECH EXAM WERE UNREMARKABLE. PT IS EDENTULOUS WITH UPPER AND LOWER DENTURES IN PLACE. GENERAL MILD TREMULOUSNESS NOTED DURING MOVEMENT. MBSS: PLEASE SEE DICTATED REPORT FOR FULL DETAIL OF EXAM. BRIEFLY, EXAM WAS VIEWED IN THE LATERAL PLANE. PT SELF-FED SIPS OF THIN LIQUID VIA CUP X2, MULTIPLE CONSECUTIVE SIPS OF THIN LIQUID VIA CUP X1, TSP OF PUREE X1, AND BITE OF COARSE SOLID X1. ORAL PHASE C/B MILDLY PROLONGED MASTICATION OF SOLIDS AND POSTERIOR LOSS OF PUREE/SOLIDS. SMALL AMOUNT OF TRANSIENT PENETRATION NOTED WITH SIPS OF THIN LIQUID. NO ASPIRATION OBSERVED WITH ANY CONSISTENCY. IMPRESSIONS: NO ASPIRATION OBSERVED DURING MBS STUDY. TRANSIENT PENETRATION OF THIN LIQUIDS ONLY. PT REMAINS APPROPRIATE FOR A REGULAR DIET WITH THIN LIQUIDS. HIS RISK FACTORS FOR ASPIRATION INCLUDE H/O CVA AND DX OF COPD AND GERD; ADHERENCE TO PRECAUTIONS BELOW IS RECOMMENDED TO REDUCE THIS RISK. RECOMMENDATIONS: 1. CONTINUE CURRENT DIET - REGULAR FOODS WITH THIN LIQUIDS 2. ASPIRATION PRECAUTIONS - FULLY UPRIGHT, AWAKE, AND ALERT FOR ALL PO - SMALL BITES/SIPS, SLOW RATE OF FEEDING - ORAL CARE AT LEAST BID - STOP EATING/DRINKING IF EXPERIENCING SOB PT EDUCATED REGARDING FINDINGS AND RECOMMENDATIONS. HE EXPRESSED UNDERSTANDING AND AGREEMENT. POC: NO FURTHER PHOTOCOPIER TECHNICIAN F/U IS INDICATED AT THIS TIME. PLEASE RE-CONSULT IF ADDITIONAL C/F DYSPHAGIA/ASPIRATION ARISE. THANK YOU FOR CONSULTING. SADE JOHANSEN, [facility] - VENICE-PHOTOCOPIER TECHNICIAN
[2017-04-17 15:09] LABS: LEGIONELLA URINARY ANTIGEN Negative (Negative)
[2017-04-17 15:09] LABS: LEGIONELLA URINARY ANTIGEN Negative (Negative)
[2017-04-17 16:00] VITALS: BP 138/64
[2017-04-17 16:11] LABS: ANGIOTENSIN-CONVERTING ENZYME 41 U/L (14-82)
[2017-04-17 18:09] LABS: ATYPICAL PANCA <1:20 titer (Neg:<1:20); CYTOPLASMIC (C-ANCA) <1:20 titer (Neg:<1:20); PERINUCLEAR (P-ANCA) <1:20 titer (Neg:<1:20)
[2017-04-17 20:30] VITALS: BP 162/77
[2017-04-17 21:37] VITALS: BP 138/78
[2017-04-18] VITALS: BP 114/61
[2017-04-18 00:09] LABS: PARAINFLUENZA 1 CF 1:16 (Neg:<1:8); PARAINFLUENZA 2 CF Negative (Neg:<1:8); PARAINFLUENZA 3 CF Negative (Neg:<1:8)
[2017-04-18 08:00] VITALS: BP 152/78
[2017-04-18 10:06] LABS: IGG SUBCLASS 1 405 mg/dL (248-810); IGG SUBCLASS 2 194 mg/dL (130-555); IGG SUBCLASS 3 50 mg/dL (15-102); IGG SUBCLASS 4 15 mg/dL (2-96); IMMUNOGLOBULIN G, QNT 666 mg/dL (700-1600)
[2017-04-18 12:00] VITALS: BP 126/72
--- NOTE | 2017-04-18 15:45 | NUR ---
Physical Therapy Pt was recieving IV therapy upon arrival and had company. Did not want to participate at this time. Kinza Peters, RECEIVER BULK SYSTEM
[2017-04-18 16:00] VITALS: BP 152/60
[2017-04-18 19:59] VITALS: BP 154/61
--- NOTE | 2017-04-18 20:01 | NUR ---
ASSUMED CARE OF PT. PT IN BED, LAYING DOWN. LIGHTS OFF, TV ON, EYES OPEN. PT WEARING NASAL CANULA. IV FLUSHED WITH NO PROBLEMS. WHEEZING NOTED THRUGHT LUNGS KUMARI POSTERIOIRLY AND ANTERIORLY. PT REPORTS THAT HE STILL HAS A PRODUCTIVE COUGH WITH GREEN PHLEGM COMING UP. FLUTTER VALVE USED EVERY 2 HOURS PER PT AND WHILE NURSE IS IN THE ROOM. 2+ PITTING EDEMA NOTED BLE. PT AWARE OF SCHEDULED BRONCH FOR THURSDAY. PT VOICES NO CONCERNS AT THIS TIME. WILL CONTINUE TO MONITOR.
[2017-04-19] VITALS: BP 136/62
--- NOTE | 2017-04-19 02:57 | NUR ---
24HR CHART CHECK COMPLETED.
--- NOTE | 2017-04-19 06:00 | NUR ---
PT IN BED, EYES CLOSED. EASILY AROUSED. TOLERATED MEDS WELL. PT VOICES NO CONCERNS AT THIS TIME. WILL CONTINUE TO MONITOR.
--- NOTE | 2017-04-19 07:45 | NUR ---
PT SITTING UP AT SIDE OF BED. RESP-EASY AND REGULAR. OXYGEN IN USE. NO C/O AT THIS TIME. CALL LIGHT IN REACH. SEE SHIFT ASSESSMENT.
[2017-04-19 08:00] VITALS: BP 152/82
[2017-04-19 12:00] VITALS: BP 148/87
--- NOTE | 2017-04-19 12:00 | NUR ---
RESTING IN BED. RESP-EASY AND REGULAR. NO C/O AT THIS TIME. CALL LIGHT IN REACH.
--- NOTE | 2017-04-19 14:00 | NUR ---
PT SITTING UP IN BED. TOLERATED ROUTINE MED WITH NO PROBLEM. CALL LIGHT IN REACH.
[2017-04-19 16:00] VITALS: BP 160/56
--- NOTE | 2017-04-19 16:05 | NUR ---
PT SITTING UP IN BED. RESP-EASY AND REGULAR. OXYGEN IN USE. CALL LIGHT IN REACH. SEE SHIFT ASSESSMENT.
--- NOTE | 2017-04-19 18:00 | NUR ---
SITTING UP AT BEDSIDE. TOLERATED ROUTINE IV MED WITH NO PROBLEM. CALL LIGHT IN REACH.
[2017-04-19 20:00] VITALS: BP 167/67
--- NOTE | 2017-04-19 20:20 | NUR ---
PT IN BED, SITTING ON THE SIDE WITH FEET ON FLOOR, TALKING ON PHONE. PT WEARING NC @3L. LUNGS DIMINISHED WITH FAINT WHEEZING BILAT. TRACE EDEMA NOTED IN BLE. IV FLUSHED WITH NO CONCERNS PER PT. PT VOICES NO CONCERNS AT THIS TIME. WILL CONTINUE TO MONITOR.
[2017-04-20] VITALS (8 sets, daily range): BP systolic 131–164; BP diastolic 61–92
--- NOTE | 2017-04-20 03:03 | NUR ---
24HR CHART CHECK COMPLETED.
--- NOTE | 2017-04-20 03:22 | NUR ---
PT IN BED, LIGHTS OFF, EYES CLOSED. RESPIRATIONS EASY. PT IN NO APPARENT DISTRESS AT THIS TIME. CALL LIGHT IN REACH. WILL CONTINUE TO MONITOR.
--- NOTE | 2017-04-20 07:01 | NUR ---
PT IN BED, LIGHTS OFF, AWAKE. PT VOICES NO CONCERNS AT THIS TIME. TOLERATED MEDS WELL. CALL LIGHT IN REACH. WILL CONTINUE TO MONITOR.
--- NOTE | 2017-04-20 07:30 | NUR ---
PT SITTING UP AT SIDE OF BED. RESP-EASY AND REGULAR. OXYGEN IN USE. CALL LIGHT IN REACH. SEE SHIFT ASSESSMENT.
[2017-04-20 07:41] LABS: BASO % 0.1 % (0.0-1.0); HEMATOCRIT 34.5 % (42.0-52.0); HEMOGLOBIN 11.7 g/dl (14.0-18.0); LYMPH # 0.6 10*3/uL (1.3-4.4); MEAN CORPUSCULAR HGB 32.2 pg (27.0-31.0); MEAN CORPUSCULAR HGB CONC 33.9 g/dl (33.0-37.0); MEAN PLATELET VOLUME 10.1 fl (9.6-12.3); MONO # 0.6 10*3/uL (0.1-1.0); NEUT # 7.5 10*3/uL (2.3-7.9); PLATELET COUNT AUTOMATED 177 10*3/uL (130-400); RED BLOOD COUNT 3.63 10*6/uL (4.50-5.90); RED CELL DISTRI WIDTH 13.1 % (0-14.5); WHITE BLOOD COUNT 9.1 10*3/uL (4.8-10.8)
--- NOTE | 2017-04-20 07:50 | NUR ---
PT OFF THE FLOOR VIA BED WITH SURGERY.
[2017-04-20 08:15] LABS: CREATININE 1.29 mg/dL (0.70-1.30)
--- NOTE | 2017-04-20 10:00 | NUR ---
PT STILL OFF THE FLOOR FOR PROCEDURE.
--- NOTE | 2017-04-20 10:47 | NUR ---
PHYSICAL THERAPY Higinio seen this AM and was to go down for his bronchoscopy. Ask if i could come back later today. HELEN SHETTY FRETTED INSTRUMENT REPAIRER.
--- NOTE | 2017-04-20 13:27 | NUR ---
PHYSICAL THERAPY Mr García seen this PM 1:1, said that he was feeling much better after his bronchoscopy this morning. All transfers were independnet. Gait with portable o2 at 3 L, Pt has IV Pole. Gait total 500' X 1, supervision X 1, no LOB and little verbal cueing for gait safety. Pt sitting independent on the side of his bed, call light, phone and on 2 L o2 room aid. HELEN SHETTY TIRE SERVICE TECHNICIAN.
--- NOTE | 2017-04-20 14:00 | NUR ---
Licensed Occupational Therapy Assistant in to see patient. No new needs or requests at this time. When medically stable he will be discharged to home with [facility].
--- NOTE | 2017-04-20 14:00 | NUR ---
RESTING IN BED. RESP-EASY AND REGULAR. CALL LIGHT IN REACH.
--- NOTE | 2017-04-20 16:10 | NUR ---
SITTING UP IN BED. RESP-EASY AND REGULAR. OXYGEN IN USE. NO C/O AT THIS TIME. CALL LIGHT IN REACH. SEE SHIFT ASSESSMENT.
--- NOTE | 2017-04-20 18:00 | NUR ---
SLEEPING IN BED. RESP-EASY AND REGULAR. CALL LIGHT IN REACH. OXYGEN IN USE.
--- NOTE | 2017-04-20 20:16 | NUR ---
PT IN BED LIGHTS OFF, NC ON 3L, EYES CLOSED. PT EASILY AROUSED. CALL LIGHT WITHIN REACH. PT VOICES NO CONCERNS OR COMPLAINTS AT THIS TIME. SEE SHIFT ASSESSMENT.
[2017-04-21] VITALS: BP 144/56
--- NOTE | 2017-04-21 04:06 | NUR ---
24HR CHART CHECK COMPLETED.
--- NOTE | 2017-04-21 06:09 | NUR ---
PT UP, SITTING AT SIDE OF BED WITH FEET ON GROUND. NC ON AT 3L. PT VOICES NO CONCERNS AT THIS TIME AND "WANTS TO LEAVE." PT IN GOOD SPIRITS TODAY. BREATHING EASY, UNLABORED. NO AUDIBLE WHEEZING HEARD. CALL LIGHT IN REACH.
[2017-04-21 07:53] VITALS: BP 150/78
--- NOTE | 2017-04-21 08:00 | NUR ---
PATIENT IS SITTING UP ON THE SIDE OF THE BED EATING BREAKFAST. HE HAS NO C/O PAIN OR DISCOMFORT AT THIS TIME. FRANCISCO THOMSON.RCC
--- NOTE | 2017-04-21 08:00 | NUR ---
PT SITTING UP IN BED. RESP-EASY AND REGULAR. OXYGEN IN USE. NO C/O AT THIS TIME. STUDENT NURSE WITH PT TODAY. CALL LIGHT IN REACH. WILL CON'T TO MONITOR.
[2017-04-21 08:07] LABS: HEMATOCRIT 36.1 % (42.0-52.0); MEAN CELL VOLUME 94.8 fl (80.0-94.0); MEAN CORPUSCULAR HGB 31.5 pg (27.0-31.0); MEAN CORPUSCULAR HGB CONC 33.2 g/dl (33.0-37.0); MEAN PLATELET VOLUME 10.5 fl (9.6-12.3); PLATELET COUNT AUTOMATED 178 10*3/uL (130-400); RED BLOOD COUNT 3.81 10*6/uL (4.50-5.90); RED CELL DISTRI WIDTH 13.1 % (0-14.5); WHITE BLOOD COUNT 7.6 10*3/uL (4.8-10.8)
[2017-04-21 08:25] LABS: BUN 30 mg/dl (7-24); CHLORIDE 102 mmol/L (98-107); CREATININE 1.12 mg/dL (0.70-1.30); PHOSPHOROUS 2.3 mg/dL (2.5-4.9); POTASSIUM 3.9 mmol/L (3.5-5.1); SODIUM 138 mmol/L (136-145)
--- NOTE | 2017-04-21 08:30 | NUR ---
Mainframe Software Developer in to see patient. Discussed home health nurse and PT and patient refuses. He states he gets around well by himself and this is not needed. When medically stable he will be discharged to home.
[2017-04-21 08:31] LABS: PLATELET SUFFICIENCY NORMAL (NORMAL); TOTAL CELLS COUNTED 100 #CELLS
--- NOTE | 2017-04-21 08:43 | NUR ---
PHYSICAL THERAPY Higinio seen this AM 1:1 for his therapy session. All transfers were independent, no LOB. Gait total 560' X 1, with portable o2 at 2 L and just a little SOB with this gait and was independent. Pt sitting independent at bedside call light and phone. HELEN SHETTY TRANSFER CAR OPERATOR.
[2017-04-21 09:12] LABS: COMPLEMENT C4 001834 12 mg/dL (14-44)
--- NOTE | 2017-04-21 09:41 | NUR ---
CALLED DR. MOODY MADE AWARE DR. FOSTER CALLED AND WANTS THEM TO ORDER A SNF CONSULT FOR PT/OT, PT GETS SOB WHEN AMBULATING. SHE WILL TAKE CARE OF IT.
--- NOTE | 2017-04-21 10:30 | NUR ---
PATIENT SITTING UP ON THE SIDE OF THE BED WITHOUT O2 SPO2 WAS 96%. NO COMPLAINTS OF DISCOMFORT AT THIS TIME. FRANCISCO DUPONTN.RCC
[2017-04-21 12:00] VITALS: BP 131/57
[2017-04-21 12:07] LABS: ACID FAST SMEAR Negative (.); ACID FAST SPEC PROCESSING Concentration (.)
--- NOTE | 2017-04-21 12:23 | NUR ---
PT ASSESSED FOR HOME O2 FOLLOWS: SAT 93% WITH 2L/M NC APPLIED AT REST SAT 92%, RA AT REST FOR 25 MINUTES SAT 88%, RA DURING AMBULATION SAT 88-89% WITH 2 L/M NC APPLIED DURING AMBULATION SAT 92% WITH 3 L/M NC APPLIED DURING AMBULATION SAT 95% WITH 2L/M NC APPLIED DURING RECOVERY (AT REST) PRE HR 58 POST HR 65 PRE RR 20 POST RR 24 PRE BP 131/51 POST BP 136/52 PT AMBULATED AROUND 3/4 OF 4E HALLWAY PT DID BECOME SOB WITH AMBULATION AND O2 APPLIED.
[2017-04-21 14:06] LABS: ANTI-DSDNA ANTIBODIES 096339 <1 IU/mL (0-9)
--- NOTE | 2017-04-21 14:45 | NUR ---
Discussed with patient and his that he doesn't qualify for a short term SNF due to his independence in ambulating. they both verbalized an understanding. Spoke to Dr. Amador and he will speak to patient and .
[2017-04-21 16:00] VITALS: BP 138/59
[2017-04-21 16:10] LABS: MYCOPLASMA PNEUMONIAE IGG 103 U/mL (0-99); MYCOPLASMA PNEUMONIAE IGG <100 U/mL (0-99); MYCOPLASMA PNEUMONIAE IGM <770 U/mL (0-769)
--- NOTE | 2017-04-21 16:30 | NUR ---
SITTING UP AT SIDE OF BED. RESP-EASY AND REGULAR. OXYGEN IN USE. NO C/O AT THIS TIME. CALL LIGHT IN REACH. SEE SHIFT ASSESSMENT.
--- NOTE | 2017-04-21 16:30 | NUR ---
CALLED DR. MOODY MADE AWARE PT WILL NEED RX FOR OXYGEN TO GET IT ORDERED FOR HOME.
--- NOTE | 2017-04-21 19:58 | NUR ---
PT SITTING UP AT BEDSIDE. PLEASANT AND COOPERATIVE DURING ASSESSMENT. DENIES ANY PAIN, RESPIRATIONS EASY. ABDOMEN FIRM TO TOUCH. NO C/O AT THIS TIME, CALL LIGHT WITHIN REACH.
[2017-04-21 20:00] VITALS: BP 167/72
[2017-04-22] VITALS: BP 182/80
[2017-04-22 01:30] VITALS: BP 178/82
--- NOTE | 2017-04-22 01:31 | NUR ---
MANUAL BP 178/82. PT ASYMPTOMATIC, SITTING AT BEDSIDE. RESP EASY, NONLABORED, SKIN WARM, DRY. DR RICKETTS MADE AWARE. AWAITING ORDERS.
--- NOTE | 2017-04-22 01:47 | NUR ---
APRESOLINE GIVEN FOR HIGH BLOOD PRESSURE READING, WILL CONTINUE TO MONITOR AND RECHECK IN 1 HR. PT RESTING IN BED WITH NO COMPLAINTS. RESPIRATIONS EASY, 2L VIA NC.
[2017-04-22 03:19] VITALS: BP 176/80
[2017-04-22 07:23] LABS: HEMATOCRIT 34.7 % (42.0-52.0); HEMOGLOBIN 11.8 g/dl (14.0-18.0); MEAN CELL VOLUME 94.6 fl (80.0-94.0); MEAN CORPUSCULAR HGB 32.2 pg (27.0-31.0); MEAN PLATELET VOLUME 10.6 fl (9.6-12.3); PLATELET COUNT AUTOMATED 163 10*3/uL (130-400); RED BLOOD COUNT 3.67 10*6/uL (4.50-5.90); RED CELL DISTRI WIDTH 13.1 % (0-14.5); WHITE BLOOD COUNT 8.9 10*3/uL (4.8-10.8)
--- NOTE | 2017-04-22 07:30 | NUR ---
PATIENT IS SITTING UP ON THE SIDE OF THE BED. BREAKFAST WAS ORDERED BY THE PATIENT. HE HAS NO COMPLAINTS OF PAIN OR DISCOMFORT AT THIS TIME. FRANCISCO THOMSON.RCC
[2017-04-22 07:31] VITALS: BP 158/72
[2017-04-22 07:45] LABS: PLATELET SUFFICIENCY NORMAL (NORMAL); TOTAL CELLS COUNTED 100 #CELLS
[2017-04-22 07:46] LABS: BUN 26 mg/dl (7-24); CHLORIDE 102 mmol/L (98-107); CREATININE 1.18 mg/dL (0.70-1.30); PHOSPHOROUS 2.8 mg/dL (2.5-4.9); POTASSIUM 4.3 mmol/L (3.5-5.1); SODIUM 139 mmol/L (136-145)
--- NOTE | 2017-04-22 08:30 | NUR ---
Insert Operator in to see patient. When medically stable he will be discharged to home with [facility].
--- NOTE | 2017-04-22 09:45 | NUR ---
IV SITE D/C'D D/T DISCHARGE CATH INTACT SITE ASYMPTOMATIC PATIENT TOLERATED WELL. FRANCISCO GORDON SPN.RCC
[2017-04-22] MEDS ORDERED: DOXYCYCLINE100 M3 PO (09:50)
[2017-04-22] MEDS ORDERED: VITAMIN D-32000 UNI1 PO (09:50)
[2017-04-22] MEDS ORDERED: PREDNISONE10 MG PO (09:50)
--- NOTE | 2017-04-22 10:33 | NUR ---
DISCHARGE INSTRUCTIONS GIVEN. COMBIGAN AND MICAYESSICAIS (HOME MEDS) GIVEN TO PATIENT. VERBALIZED UNDERSTANDING OF INSTRUCTIONS. AWAITING FOR SPOUSE TO TAKE HOME. FRANCISCO THOMSON.RCC
--- NOTE | 2017-04-22 11:11 | NUR ---
Discharge instructions reviewed with patient/family. Patient receptive and verbalizes understanding. Follow-up care arranged. Written instructions given to patient/family. CRIS PERSAUD
[2017-04-22] MEDS ORDERED: IPRATROPIU0.2 MG/1 M NEB (11:49)
[2017-04-22] MEDS ORDERED: ALBUTEROL2.5 MG/0.5 INH (11:49)
[2017-04-22 22:05] LABS: PARAINFLUENZA 1 CF 1:16 (Neg:<1:8); PARAINFLUENZA 2 CF Negative (Neg:<1:8); PARAINFLUENZA 3 CF Negative (Neg:<1:8)
--- NOTE | 2017-04-23 17:02 | NUR ---
PHYSICAL THERAPY CO-SIGN I approve of the Phyical Therapy notes written above. GARY BAR
== END 2017-04-22 11:11 | disposition home health service (06) | DRG 871 ==
LOC: ED 08:43 → 4E 11:37 → EDHOLD 11:37 → 4E 11:48
PROVIDERS: Emergency Medicine; Internal Medicine Critical Care Medicine; Internal Medicine Nephrology; ADMIT Internal Medicine
PROC: BD1BYZZ Fluoroscopy of Mouth/Oropharynx using Other Contrast (ICD-10-PCS; principal; 2017-04-17)
PROC: 0BC48ZZ Extirpation of Matter from Right Upper Lobe Bronchus, Via Natural or Artificial Opening Endoscopic (ICD-10-PCS; 2017-04-20)
PROC: 0BC88ZZ Extirpation of Matter from Left Upper Lobe Bronchus, Via Natural or Artificial Opening Endoscopic (ICD-10-PCS; 2017-04-20)
PROC: 0BC18ZZ Extirpation of Matter from Trachea, Via Natural or Artificial Opening Endoscopic (ICD-10-PCS; 2017-04-20)
PROC: 0BCB8ZZ Extirpation of Matter from Left Lower Lobe Bronchus, Via Natural or Artificial Opening Endoscopic (ICD-10-PCS; 2017-04-20)
PROC: 0BC38ZZ Extirpation of Matter from Right Main Bronchus, Via Natural or Artificial Opening Endoscopic (ICD-10-PCS; 2017-04-20)
PROC: 0BC68ZZ Extirpation of Matter from Right Lower Lobe Bronchus, Via Natural or Artificial Opening Endoscopic (ICD-10-PCS; 2017-04-20)
PROC: 0BC78ZZ Extirpation of Matter from Left Main Bronchus, Via Natural or Artificial Opening Endoscopic (ICD-10-PCS; 2017-04-20)
PROC: 0BC98ZZ Extirpation of Matter from Lingula Bronchus, Via Natural or Artificial Opening Endoscopic (ICD-10-PCS; 2017-04-20)
PROC: 0BC58ZZ Extirpation of Matter from Right Middle Lobe Bronchus, Via Natural or Artificial Opening Endoscopic (ICD-10-PCS; 2017-04-20)
DX: A41.9 Sepsis, unspecified organism (principal); J96.01 Acute respiratory failure with hypoxia; I63.9 Cerebral infarction, unspecified; N17.0 Acute kidney failure with tubular necrosis; J44.0 Chronic obstructive pulmonary disease with (acute) lower respiratory infection; J12.3 Human metapneumovirus pneumonia; J45.901 Unspecified asthma with (acute) exacerbation; I50.32 Chronic diastolic (congestive) heart failure; T17.590A Other foreign object in bronchus causing asphyxiation, initial encounter; J44.1 Chronic obstructive pulmonary disease with (acute) exacerbation; I11.0 Hypertensive heart disease with heart failure; D64.9 Anemia, unspecified; R73.9 Hyperglycemia, unspecified; E66.09 Other obesity due to excess calories; E78.5 Hyperlipidemia, unspecified; M19.90 Unspecified osteoarthritis, unspecified site; E55.9 Vitamin D deficiency, unspecified; R13.12 Dysphagia, oropharyngeal phase; K21.9 Gastro-esophageal reflux disease without esophagitis; I25.10 Atherosclerotic heart disease of native coronary artery without angina pectoris; K75.81 Nonalcoholic steatohepatitis (NASH); I71.2 Thoracic aortic aneurysm, without rupture; T38.0X5A Adverse effect of glucocorticoids and synthetic analogues, initial encounter; X58.XXXA Exposure to other specified factors, initial encounter; J22 Unspecified acute lower respiratory infection; J11.1 Influenza due to unidentified influenza virus with other respiratory manifestations; B97.81 Human metapneumovirus as the cause of diseases classified elsewhere; Z95.5 Presence of coronary angioplasty implant and graft; Z79.51 Long term (current) use of inhaled steroids; Z91.048 Other nonmedicinal substance allergy status; Z88.8 Allergy status to other drugs, medicaments and biological substances; Z91.018 Allergy to other foods; Z79.899 Other long term (current) drug therapy; Z79.82 Long term (current) use of aspirin; Z85.828 Personal history of other malignant neoplasm of skin; Z98.49 Cataract extraction status, unspecified eye; Z82.49 Family history of ischemic heart disease and other diseases of the circulatory system; Z82.3 Family history of stroke; Z82.69 Family history of other diseases of the musculoskeletal system and connective tissue; Z80.6 Family history of leukemia; Z87.891 Personal history of nicotine dependence; Z80.7 Family history of other malignant neoplasms of lymphoid, hematopoietic and related tissues; Y93.89 Activity, other specified; Y92.89 Other specified places as the place of occurrence of the external cause; Y99.8 Other external cause status; Z95.828 Presence of other vascular implants and grafts; Z79.02 Long term (current) use of antithrombotics/antiplatelets; Z68.30 Body mass index [BMI] 30.0-30.9, adult

== ENCOUNTER → 2017-06-10 | Outpatient (CLI) | payer MEDICARE, OTHER ==
[~2017-06-10] MED LIST changes: +ALBUTEROL2.5 MG/0.5 INH; +DOXYCYCLINE100 M3 PO; +IPRATROPIU0.2 MG/1 M NEB; +PREDNISONE10 MG PO; +VITAMIN D-32000 UNI1 PO
== END ==
LOC: CT 09:37
DX: R91.1 Solitary pulmonary nodule (principal)

== ENCOUNTER 2017-06-20 01:19 | Inpatient (IN) | payer MEDICARE, OTHER ==
[~2017-06-20] VITALS: Ht 180.3 cm; Wt 97.1 kg
[2017-06-20] VITALS (21 sets, daily range): BP systolic 92–203; BP diastolic 55–101
--- NOTE | ~2017-06-20 | EKG ---
[place], [place] ELECTROCARDIOGRAM REPORT NAME: SRIDHAR RESTREPO UNIT #: [id number] ROOM: [facility] DOCTOR: LOR ESCOBEDO MD BIRTHDATE: [birth year] DOS: 06/20/2017 TIME: 0418 hours. FINDINGS: 1. Atrial fibrillation with ventricular rate of 94 beats per minute. 2. T-wave inversion in V6 and aVL. 3. An abnormal ECG. 4. When compared with an ECG done earlier in the day, heart rate had decreased significantly. LOR ESCOBEDO MD CM:EKGRPT:ELECTROCARDIOGRAM REPORT [id number] 191 LOR ESCOBEDO MD
--- NOTE | ~2017-06-20 | CON ---
[place], [place] REPORT OF CONSULTATION NAME: SRIDHAR RESTREPO UNIT #: [id number] ROOM: [facility] DOCTOR: ALIX GARVIN MD BIRTHDATE: [birth year] DOS: 06/20/2017 PULMONARY CONSULTATION, EVALUATION, AND MANAGEMENT REASON FOR CONSULTATION: Acute respiratory failure. HISTORY OF PRESENT ILLNESS: A 76-year-old white male who has been known to me with past history of COPD. The patient presented to the Emergency Room on 06/20/2017 early this morning, came into the Emergency Room has the patient experienced significant shortness breath, which occurred about an hour ago prior to the hospitalization. The patient's shortness breath was noted progressive worsened and severe. The patient denies any symptoms of chest pain. As the patient arrived in the Emergency Room, he was noted with severe acute hypoxic respiratory failure, oxygen saturation recorded by the EMS is 70%. He was also started 100% nonrebreather mask with oxygen saturation noted more than 90%. The patient was later started on BiPAP, when he has arrived in the Emergency Room. He has been also noted with severely uncontrolled hypertension as well. Acute pulmonary edema was also noted. In the Emergency Room, intervention was done for the medical management of the current congestive heart failure. He was started on intravenous nitro drip. The patient also given intravenous Lopressor. The patient has been admitted to the Intensive Care Unit. He has been still receiving the intravenous nitroglycerin drip. This morning, the patient has been noted reduction of the oxygen requirement at the time of the assessment. Shortness of breath has been noted decreased. He does have very mild nonproductive cough. Denies symptoms of wheezing. He did not report any symptoms of anginal pain at the present time. REVIEW OF SYSTEMS: General weakness and fatigue noted. CONSTITUTIONAL: Denies fever or chills. EYES: Denies any burning, redness, or tenderness. EARS, NOSE, THROAT SYMPTOMS: Denies sore throat, hoarseness, otalgia, postnasal drainage, or epistaxis. CARDIOVASCULAR: No anginal pain, edema, pain in lower extremities, or palpitation. ____ chest were reported, which has been resolved. GASTROINTESTINAL: No dysphagia, nausea, vomiting, diarrhea, abdominal pain, hematemesis, melena, or hematochezia. GENITOURINARY: No dysuria, suprapubic pain, or hematuria. MUSCULOSKELETAL: No acute joint pain. SKIN: Denies any deformities. CENTRAL NERVOUS SYSTEM: The patient does complain of dizziness previously, which has been resolved. Denies symptoms of headache, diplopia, syncopal episodes, or seizures. Remaining systems were reviewed with the patient, they were noted all negative. PAST MEDICAL HISTORY: 1. Noted with history of COPD. 2. Uncomplicated moderate persistent bronchial asthma. 3. History of abdominal aortic aneurysm. 4. Essential hypertension. [place], [place] REPORT OF CONSULTATION NAME: SRIDHAR RESTREPO UNIT #: [id number] ROOM: [facility] DOCTOR: ALIX GARVIN MD BIRTHDATE: [birth year] 5. 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 6. Current solitary pulmonary nodule noted in the right lung 7 mm in size with the resolution of previous nodular opacification and infiltration during his admission of 04/2017. 7. History of degenerative arthritis. PAST SURGICAL HISTORY: 1. Endovascular stent and grafting for the patient's abdominal aortic aneurysm in 2013. 2. Appendectomy. 3. Hernia repair. 4. Cardiac catheterization and coronary artery stents insertion. 5. Cervical spine surgery and laminectomy. 6. Right hip surgery. 7. Therapeutic bronchoscopy in 04/2017. SOCIAL HISTORY: Smoking was noted from the teenager. The patient smoked up to 1.5 pack of cigarettes per day until 1994. The patient has history of occupational-related pulmonary exposure. He is and lives at home, has 6 children. The patient has been noted past history of beer use, but not drinking actively at this time. FAMILY HISTORY: The patient's mother at age of [id number] from complication of pulmonary embolism. Father at age of [id number] from complication of multiple myeloma. MEDICATIONS: 1. Current administered medications noted were intravenous nitroglycerin drip, Plavix, Norvasc, Lipitor, DuoNeb q.6 hours, Dulera 200/5 two puffs b.i.d., losartan 50 mg daily, metoprolol tartrate 50 mg b.i.d., Famotidine 20 mg b.i.d. 2. Aspirin 81 mg daily. 3. Prazosin 1 mg p.o. b.i.d. 4. Multivitamin 1 p.o. daily. 5. Vitamin D 1000 international units daily, IV heparin per therapeutic dose. Other p.r.n. medications administration. DRUG ALLERGIES: THE PATIENT WAS NOTED WITH ALLERGIES TO LISINOPRIL. PHYSICAL EXAMINATION: GENERAL: A 76-year-old white male, currently sitting on the chair at this time without any acute distress this afternoon of assessment. Height of the patient 5 feet 11 inches, weight of 223 pounds, BMI 31. VITAL SIGNS: Normal temperature, respiratory rate 24-18, heart rate of 112-136 on admission with atrial fibrillation as well. The blood pressure is 203/101-123/55 this afternoon. Intake is 332, output of 225 mL. Pulse oxygen saturation 97% on 100% nonrebreather mask, later on the BiPAP gradually reduced oxygen, requirement noted 100%. In the afternoon on 3 liter nasal cannula, the patient's oxygen was noted saturation of 92%. HEENT: Moderate obesity. Head was atraumatic. Eyes nonicterus. NECK: Supple. [place], [place] REPORT OF CONSULTATION NAME: SRIDHAR RESTREPO UNIT #: [id number] ROOM: [facility] DOCTOR: CRISTIAN SAL MD,[facility] BIRTHDATE: [birth year] CARDIOVASCULAR: S1, S2 is audible. LUNGS: The patient was noted with crackles, mainly at the right lung base. There is no wheezing. ABDOMEN: Soft, nontender. Bowel sounds present. EXTREMITIES: Without any edema. VISIBLE SKIN: No lesions or rashes. MUSCULOSKELETAL: Without any acute deformities. CENTRAL NERVOUS SYSTEM: Cranial nerves 2-12 intact. No focal deficit. LABORATORY DATA: CBC of this morning, WBC count 11.5, hemoglobin 11.1, hematocrit 36.3, and platelet count 251,000. PT/PTT normal this morning. CMP this morning, BUN 18, creatinine 1.3, and glucose 191. Other electrolytes were normal. Lactic acid 1.1. The PT/INR was repeated again was normal. CMP of the patient repeated again in the Intensive Care Unit, BUN 19 and creatinine 1.46. Troponin first set were noted normal, second set was normal as well This morning, the third set was noted minimally elevated at 0.085. Influenza A and B, nasal washing antigen negative DIAGNOSTIC DATA: The chest x-ray of the patient that was done this morning was personally reviewed shows evidence of diffuse pulmonary edema picture and congestive heart failure. There was no evidence of acute pulmonary infiltration as consolidation. Pleural fluid at this time is not clearly seen. IMPRESSION: 1. The patient who has been currently admitted to the hospital noted acute flash pulmonary edema and congestive heart failure with severe acute hypoxic respiratory failure. 2. Atrial fibrillation, new onset as well, also contributed pulmonary edema. 3. Possibility of non-ST segment elevation myocardial infarction can be completely excluded. 4. History of chronic obstructive pulmonary disease and bronchial asthma. The patient remained stable without any active exacerbation. 5. Previous nicotine abuse as well. PLAN OF TREATMENT: Continue diuretic. The patient is on nitroglycerin. Management of the hypertension. Cardiology followup and assessment. BiPAP could be used for the patient p.r.n. during the day, continue at nighttime. Usual care, other supportive therapy, plan of management, and care. Continue rate control for the atrial fibrillation with current use of the Cardizem. Thanks for allowing me to participate in the care of this patient. [place], [place] REPORT OF CONSULTATION NAME: SRIDHAR RESTREPO UNIT #: [id number] ROOM: [facility] DOCTOR: ALIX GARVIN MD BIRTHDATE: [birth year] ALIX FOSTER MD CM:CONSTR:REPORT OF CONSULTATION 1627 06/21/17 0529 interface
--- NOTE | ~2017-06-20 | PR ---
[place], [place] PROGRESS NOTE NAME: SRIDHAR RESTREPO UNIT #: [id number] ROOM: [facility] DOCTOR: CRISTIAN SAL MD,ALIX BIRTHDATE: [birth year] DOS: 06/22/2017 SUBJECTIVE: The patient noted to be comfortable at this time without any acute distress. He has been noted with resolving shortness of breath. Denies any symptoms of chest pain. Minimal cough was noted. There were no wheezing or abdominal pain. OBJECTIVE: VITAL SIGNS: For the patient, which have been recorded showed the temperature noted normal, respiratory rate 14, heart rate 75, blood pressure 126/86. The pulse oxygen saturation of the patient recorded on 2 liters 98% saturation. HEENT: Mild to moderate obesity. NECK: Supple. Head was atraumatic. CARDIOVASCULAR: S1, S2 audible. LUNGS: Without any wheeze or crackles at the present time. ABDOMEN: Soft, nontender. IMPRESSION: 1. Resolving acute congestive heart failure, clinical radiologically and with physical examination. 2. Resolution tachycardia. 3. The patient with atrial fibrillation as well currently noted. PLAN OF TREATMENT: Continuation of the therapeutic heparin. The patient's INR and the PTT were noted therapeutic. Continuation of the diuretic therapy. BUN and creatinine today was noted as normal. CBC was noted without any leukocytosis. Platelet count was normal with mild anemia. Continue routine medical treatment. The patient for COPD as well as previously in progress. Continue the Cardiology followup as well. The BiPAP will be discontinued. The patient has not used it for the past couple of days. ALIX FOSTER MD CM:PNTRANS [id number] ALIX SAL MD 06/23/17 0135 interface
--- NOTE | ~2017-06-20 | EKG ---
[place], [place] ELECTROCARDIOGRAM REPORT NAME: SRIDHAR RESTREPO UNIT #: [id number] ROOM: [facility] DOCTOR: LOR ESCOBEDO MD BIRTHDATE: [birth year] DOS: 06/20/2017 TIME: 0333 hours. FINDINGS: 1. Atrial fibrillation with rapid ventricular rate at 129 beats per minute. 2. Minimal ST segment depression in lateral leads is present. 3. An abnormal ECG. 4. No previous tracing is available for comparison. LOR ESCOBEDO MD CM:EKGRPT:ELECTROCARDIOGRAM REPORT 1646 1908 LOR ESCOBEDO MD
--- NOTE | ~2017-06-20 | CON ---
[place], [place] REPORT OF CONSULTATION NAME: SRIDHAR RESTREPO UNIT #: [id number] ROOM: [facility] DOCTOR: GARY SPRING MD BIRTHDATE: [birth year] DOS: 06/20/2017 I am covering for Dr. Magana. HISTORY OF PRESENT ILLNESS: A 76-year-old gentleman presented with significant shortness of breath. The patient was in acute pulmonary edema. The patient has BiPAP on during the review ____. The patient states that he was in his usual state of health one hour prior to the ER, came in with severe shortness of breath. Saturation was significantly low. The patient got admitted. No acute EKG changes suggestion of myocardial injury. However, the patient was in atrial fibrillation, probably it is a new onset. His troponin is not significantly elevated. The patient complains of chest pressure and tightness. The patient was initially on nitroglycerin drip, which has been discontinued recently. PAST MEDICAL HISTORY: Significant for abdominal aortic aneurysm, congestive heart failure, CVA, hypertension, tobacco abuse, hyperlipidemia, anemia. PAST SURGICAL HISTORY: Abdominal aortic aneurysm repair, appendectomy, hernia surgery, coronary artery disease, stent placement. SOCIAL HISTORY: History of social alcohol use. The patient does have quit smoking about 20 years ago. FAMILY HISTORY: Positive for coronary artery disease. ALLERGIES: None. HOME MEDICATIONS: Atorvastatin, aspirin, clopidogrel, ferrous sulfate, labetalol, prazosin, ranitidine and telmisartan/hydrochlorothiazide. REVIEW OF SYSTEMS: CONSTITUTIONAL: No fever, no chills. HEENT: No visual disturbances, hearing problems. CARDIOVASCULAR SYSTEM: Reports of chest tightness and heaviness. RESPIRATORY SYSTEM: Does have shortness of breath. GASTROINTESTINAL: No nausea. No vomiting. GENITOURINARY: No dysuria. NEUROLOGICAL: Stable. PHYSICAL EXAMINATION: VITAL SIGNS: Blood pressure is 134/96. HEENT: Unremarkable. NECK: Elevated JVD, no carotid bruit. LUNGS: Diminished air entry bilaterally using accessory muscles. ABDOMEN: Soft, nontender. EXTREMITIES: Intact pulses. No edema. NEUROLOGICAL: He appears to be stable. LABORATORY AND DIAGNOSTIC DATA: Creatinine is 1.38, potassium is 4.5, and magnesium is 1.9. Troponin is 0.015. INR is 1.1. Hemoglobin 11, hematocrit [place], [place] REPORT OF CONSULTATION NAME: SRIDHAR RESTREPO UNIT #: [id number] ROOM: [facility] DOCTOR: SAW HORTON,GARY BIRTHDATE: [birth year] 36.3. EKG: Atrial fibrillation with a slightly rapid ventricular response. Chest x-ray showed pulmonary vascular congestion with basilar atelectasis. IMPRESSION: Atrial fibrillation, new onset with rapid ventricular response, flash pulmonary edema, septicemia, respiratory failure, pneumonitis, leukocytosis, lymphopenia, CVA. The presence of coronary artery stent placement. RECOMMENDATIONS: Continue the CHF pathway. Start her back on the nitroglycerin total loading, continue IV nitro. Agree with consulting Pulmonology, get an echocardiogram if it is not done in 6 months. Monitor the serial enzymes very closely. Continue beta blockers, SRINI inhibitors, lipid lowering agents and antiplatelet drugs and we will follow up. GARY SPRING MD CM:CONSTR:REPORT OF CONSULTATION 1017 06/20/17 1241 interface
--- NOTE | ~2017-06-20 | EKG ---
[place], [place] ELECTROCARDIOGRAM REPORT NAME: SRIDHAR RESTREPO UNIT #: [id number] ROOM: [facility] DOCTOR: FANNY HORTON,LOR BIRTHDATE: [birth year] DOS: 06/20/2017 TIME: 0701 hours. FINDINGS: 1. Atrial fibrillation with ventricular rate of 95 beats per minute. 2. T-wave inversion in lead I and V6 with minimal ST segment depression raises a possibility of ischemia. 3. No significant change from the ECG done at 0418 hours of the same day. LOR ESCOBEDO MD CM:EKGRPT:ELECTROCARDIOGRAM REPORT 1646 1914 LOR ESCOBEDO MD
--- NOTE | ~2017-06-20 | PR ---
[place], [place] PROGRESS NOTE NAME: SRIDHAR RESTREPO UNIT #: [id number] ROOM: [facility] DOCTOR: CRISTIAN SAL MD,ALIX BIRTHDATE: [birth year] DOS: 06/21/2017 SUBJECTIVE: The patient was continued on intravenous heparin at this time. Heart rate were noted to normal sinus rhythm, noted general weakness, fatigue, stated with some irritation in the left lung at time. There were no symptoms of anginal pain. Denies symptoms of hemoptysis. Denies symptoms of abdominal pain. The patient's intravenous Tridil drip has been discontinued as well. He has been continued on antihypertensive medications also receiving the diuretics. The oxygen supplementation continued with the nasal cannula. He has not used the BiPAP in the last 18 hours. Denies any dizziness or headache. Still noted shortness of breath for the patient with walking few feet on a level surface in his room. Denies symptoms of hematuria. Denies any symptoms hematochezia, abdominal pain or headache. Remaining systems were reviewed, they remains negative. OBJECTIVE: VITAL SIGNS: Normal temperature, respiratory rate 18, heart rate 77, blood pressure 127/69-134/62. The intake for the patient recorded as 1600 mL approximately output 2100 mL. Pulse oxygen 2 liters nasal cannula 95% saturation recorded. HEENT: Showed no acute change. NECK: Supple. CARDIOVASCULAR: S1, S2 audible. LUNGS: Crackles still noted lower portion of the lungs bilaterally, more in the right than the left side. ABDOMEN: Soft, nontender. EXTREMITIES: Without any acute edema. MUSCULOSKELETAL: No acute deformities. LABORATORY DATA: Chest x-ray of the patient shows bilateral small pleural fluid with the resolving finding of congestive heart failure and pulmonary edema. CMP this morning, BUN 24, creatinine 1.48. The remaining CMP was normal. The PTT previously noted 101, later on 60.5. CBC of patient's hemoglobin 9.6, hematocrit 29.6, platelet count were normal. WBC count was normal. IMPRESSION: 1. Currently noted with atrial fibrillation with rapid ventricular response with acute pulmonary edema, which are noted flash pulmonary edema. 2. Small pleural fluid secondary to congestive heart failure as well. 3. Elevation of creatinine, related to the congestive heart failure and diuretic therapy as well. 4. Stable chronic obstructive pulmonary disease as well. PLAN OF TREATMENT: Titrate oxygen supplementation, maintain saturation 90% or greater. Continue adjust the dose of the unfractionated therapeutic heparin to maintain a therapeutic level. Continuation of bronchodilators. Continue his other home medications as well. Usual care, other supportive plan of therapy and care plan. [place], [place] PROGRESS NOTE NAME: SRIDHAR RESTREPO UNIT #: [id number] ROOM: [facility] DOCTOR: ALIX GARVIN MD BIRTHDATE: [birth year] ALIX FOSTER MD CM:PNTRANS 1400 2 ALIX SAL MD 06/22/17 013 interface
[2017-06-20 01:35] LABS: BASO % 0.3 % (0.0-1.0); EOS # 0.1 10*3/uL (0.0-0.4); EOS % 1.1 % (1.0-4.0); HEMATOCRIT 36.3 % (42.0-52.0); HEMOGLOBIN 11.7 g/dl (14.0-18.0); LYMPH # 1.9 10*3/uL (1.3-4.4); LYMPH % 16.6 % (27.0-41.0); MEAN CELL VOLUME 98.1 fl (80.0-94.0); MEAN CORPUSCULAR HGB 31.6 pg (27.0-31.0); MEAN CORPUSCULAR HGB CONC 32.2 g/dl (33.0-37.0); MEAN PLATELET VOLUME 10.6 fl (9.6-12.3); MONO % 8.5 % (3.0-9.0); NEUT # 8.4 10*3/uL (2.3-7.9); NEUT % 73.2 % (47.0-73.0); PLATELET COUNT AUTOMATED 251 10*3/uL (130-400); RED CELL DISTRI WIDTH 15.3 % (0-14.5); WHITE BLOOD COUNT 11.5 10*3/uL (4.8-10.8)
[2017-06-20 01:43] LABS: ACT PARTIAL THROMBO TIME 26.9 SECONDS (20.8-31.5); INTERNATIONAL NORM RATIO 1.1 (2.0-3.5)
[2017-06-20] MEDS ORDERED: ALLEGRA-D 24 H1 EACH PO (01:48)
[2017-06-20] MEDS ORDERED: LAXATIVE MAXIMU25 MG PO (01:48)
[2017-06-20] MEDS ORDERED: MAPAP EXTRA ST500 MG PO (01:48)
[2017-06-20] MEDS ORDERED: LIPITOR80 MG PO (01:49)
[2017-06-20] MEDS ORDERED: LABETALOL HYDR200 MG PO (01:49)
[2017-06-20] MEDS ORDERED: MINIPRESS1 M1 PO (01:49)
[2017-06-20] MEDS ORDERED: ZANTAC 150150 MG PO (01:50)
[2017-06-20] MEDS ORDERED: ASPIRIN CHEWABL81 MG PO (01:50)
[2017-06-20] MEDS ORDERED: IRON325 M1 PO (01:50)
[2017-06-20] MEDS ORDERED: PLAVIX75 M1 PO (01:51)
[2017-06-20] MEDS ORDERED: SYMB160 INH (01:51)
[2017-06-20] MEDS ORDERED: VITAMIN D32000 UNIT PO (01:51)
[2017-06-20] MEDS ORDERED: NORVASC10 MG PO (01:51)
[2017-06-20 01:52] LABS: ALBUMIN 3.5 gm/dl (3.1-4.5); ALKALINE PHOSPHATASE 95 U/L (45-117); BUN 18 mg/dl (7-24); CHLORIDE 105 mmol/L (98-107); CREATININE 1.38 mg/dL (0.70-1.30); POTASSIUM 4.5 mmol/L (3.5-5.1); SGOT/AST 56 IU/L (3-35); SGPT/ALT 67 U/L (12-78); SODIUM 140 mmol/L (136-145); TOTAL PROTEIN 7.4 gm/dL (6.4-8.2); TROPONIN I < 0.015 ng/ml (<0.045)
[2017-06-20] MEDS ORDERED: COMBIGAN 0.2%-0.5 ML OU (03:09)
[2017-06-20] MEDS ORDERED: ADVAIR HFA 115-12 GM INH (03:10)
[2017-06-20] MEDS ORDERED: PROAIR HFA8.5 GM INH (03:10)
[2017-06-20] MEDS ORDERED: MULTIVITAMINS1 EAC5 PO (03:15)
[2017-06-20] MEDS ORDERED: CALCIUM500 M1 PO (03:15)
[2017-06-20] MEDS ORDERED: TELMISARTAN-HC1 EACH PO (03:17)
[2017-06-20 04:13] LABS: BASO % 0.4 % (0.0-1.0); EOS # 0.1 10*3/uL (0.0-0.4); EOS % 0.6 % (1.0-4.0); HEMATOCRIT 30.6 % (42.0-52.0); LYMPH # 0.6 10*3/uL (1.3-4.4); LYMPH % 7.8 % (27.0-41.0); MEAN CELL VOLUME 96.5 fl (80.0-94.0); MEAN CORPUSCULAR HGB 31.5 pg (27.0-31.0); MEAN CORPUSCULAR HGB CONC 32.7 g/dl (33.0-37.0); MEAN PLATELET VOLUME 10.7 fl (9.6-12.3); MONO # 0.7 10*3/uL (0.1-1.0); MONO % 9.2 % (3.0-9.0); NEUT # 6.5 10*3/uL (2.3-7.9); NEUT % 81.6 % (47.0-73.0); RED BLOOD COUNT 3.17 10*6/uL (4.50-5.90); RED CELL DISTRI WIDTH 15.2 % (0-14.5)
[2017-06-20 04:15] LABS: PLATELET COUNT AUTOMATED 173 10*3/uL (130-400)
[2017-06-20 04:22] LABS: INTERNATIONAL NORM RATIO 1.2 (2.0-3.5)
[2017-06-20 04:28] LABS: ALBUMIN 3.2 gm/dl (3.1-4.5); CREATININE 1.46 mg/dL (0.70-1.30); PHOSPHOROUS 3.2 mg/dL (2.5-4.9); POTASSIUM 4.4 mmol/L (3.5-5.1); TOTAL PROTEIN 6.8 gm/dL (6.4-8.2)
[2017-06-20 04:29] LABS: FREE T4 1.04 ng/dl (0.76-1.46)
[2017-06-20 04:33] LABS: THYROID STIM HORMONE (HS) 2.65 uIU/ml (0.358-4.75)
[2017-06-20 09:16] LABS: VITAMIN D, 25-HYDROXY 21.5 ng/mL (30-100)
[2017-06-20 10:11] LABS: BILIRUBIN NEGATIVE (NEGATIVE); BLOOD NEGATIVE (NEGATIVE); CLARITY CLEAR (CLEAR); COLOR YELLOW (YELLOW); GLUCOSE NEGATIVE (NEGATIVE); KETONE NEGATIVE (NEGATIVE); LEUKO ESTERASE NEGATIVE (NEGATIVE); NITRITE NEGATIVE (NEGATIVE); PH 5.5 (5.0-9.0); UROBILINOGEN 0.2 E.U./dl (0.2-1.0)
[2017-06-21] VITALS (17 sets, daily range): BP systolic 106–152; BP diastolic 49–75
[2017-06-21 06:04] LABS: BASO % 0.3 % (0.0-1.0); EOS # 0.1 10*3/uL (0.0-0.4); EOS % 1.7 % (1.0-4.0); HEMATOCRIT 29.6 % (42.0-52.0); HEMOGLOBIN 9.6 g/dl (14.0-18.0); LYMPH % 17.7 % (27.0-41.0); MEAN CORPUSCULAR HGB 31.5 pg (27.0-31.0); MEAN CORPUSCULAR HGB CONC 32.4 g/dl (33.0-37.0); MEAN PLATELET VOLUME 10.6 fl (9.6-12.3); MONO # 0.6 10*3/uL (0.1-1.0); MONO % 9.7 % (3.0-9.0); NEUT # 4.1 10*3/uL (2.3-7.9); NEUT % 70.3 % (47.0-73.0); PLATELET COUNT AUTOMATED 184 10*3/uL (130-400); RED BLOOD COUNT 3.05 10*6/uL (4.50-5.90); RED CELL DISTRI WIDTH 15.4 % (0-14.5); WHITE BLOOD COUNT 5.8 10*3/uL (4.8-10.8)
[2017-06-21 06:37] LABS: CREATININE 1.48 mg/dL (0.70-1.30); POTASSIUM 4.1 mmol/L (3.5-5.1); TOTAL PROTEIN 6.5 gm/dL (6.4-8.2)
[2017-06-22] VITALS: BP 144/66
[2017-06-22 04:00] VITALS: BP 126/86
[2017-06-22 06:05] LABS: BASO % 0.4 % (0.0-1.0); EOS # 0.1 10*3/uL (0.0-0.4); EOS % 2.4 % (1.0-4.0); HEMATOCRIT 30.3 % (42.0-52.0); HEMOGLOBIN 10.2 g/dl (14.0-18.0); LYMPH % 18.8 % (27.0-41.0); MEAN CELL VOLUME 94.7 fl (80.0-94.0); MEAN CORPUSCULAR HGB 31.9 pg (27.0-31.0); MEAN CORPUSCULAR HGB CONC 33.7 g/dl (33.0-37.0); MEAN PLATELET VOLUME 10.7 fl (9.6-12.3); MONO # 0.6 10*3/uL (0.1-1.0); MONO % 10.9 % (3.0-9.0); NEUT # 3.6 10*3/uL (2.3-7.9); NEUT % 67.1 % (47.0-73.0); PLATELET COUNT AUTOMATED 207 10*3/uL (130-400); RED CELL DISTRI WIDTH 14.9 % (0-14.5); WHITE BLOOD COUNT 5.3 10*3/uL (4.8-10.8)
[2017-06-22 06:07] LABS: BUN 21 mg/dl (7-24); CHLORIDE 103 mmol/L (98-107); CREATININE 1.26 mg/dL (0.70-1.30); POTASSIUM 3.9 mmol/L (3.5-5.1); SODIUM 141 mmol/L (136-145)
[2017-06-22 08:00] VITALS: BP 162/64
[2017-06-22 12:00] VITALS: BP 103/52
[2017-06-22 16:00] VITALS: BP 145/78
[2017-06-22 20:03] VITALS: BP 122/69
[2017-06-23] VITALS: BP 114/63
[2017-06-23 04:45] VITALS: BP 112/67
== END 2017-06-23 05:30 | disposition other institution (70) | DRG 291 ==
LOC: ED 01:19 → ICCU 02:29 → EDHOLD 02:29 → ICCU 02:37
PROVIDERS: Emergency Medicine Emergency Medical Services; Internal Medicine
PROC: 5A09357 Assistance with Respiratory Ventilation, Less than 24 Consecutive Hours, Continuous Positive Airway Pressure (ICD-10-PCS; principal; 2017-06-20)
DX: I50.33 Acute on chronic diastolic (congestive) heart failure (principal); N17.0 Acute kidney failure with tubular necrosis; J96.01 Acute respiratory failure with hypoxia; J18.9 Pneumonia, unspecified organism; E44.0 Moderate protein-calorie malnutrition; J44.0 Chronic obstructive pulmonary disease with (acute) lower respiratory infection; I48.91 Unspecified atrial fibrillation; J45.901 Unspecified asthma with (acute) exacerbation; D64.9 Anemia, unspecified; J44.1 Chronic obstructive pulmonary disease with (acute) exacerbation; I16.1 Hypertensive emergency; J81.0 Acute pulmonary edema; I11.0 Hypertensive heart disease with heart failure; E66.09 Other obesity due to excess calories; E78.5 Hyperlipidemia, unspecified; I25.10 Atherosclerotic heart disease of native coronary artery without angina pectoris; R91.1 Solitary pulmonary nodule; D72.810 Lymphocytopenia; R74.0 Nonspecific elevation of levels of transaminase and lactic acid dehydrogenase [LDH]; E55.9 Vitamin D deficiency, unspecified; M19.90 Unspecified osteoarthritis, unspecified site; Z84.89 Family history of other specified conditions; Z88.8 Allergy status to other drugs, medicaments and biological substances; Z91.018 Allergy to other foods; Z80.6 Family history of leukemia; Z82.49 Family history of ischemic heart disease and other diseases of the circulatory system; Z82.3 Family history of stroke; Z87.891 Personal history of nicotine dependence; Z68.31 Body mass index [BMI] 31.0-31.9, adult; Z86.73 Personal history of transient ischemic attack (TIA), and cerebral infarction without residual deficits; Z90.49 Acquired absence of other specified parts of digestive tract; Z95.5 Presence of coronary angioplasty implant and graft; Z79.82 Long term (current) use of aspirin; Z79.899 Other long term (current) drug therapy

== ENCOUNTER → 2017-07-22 | Outpatient (CLI) | payer MEDICARE, OTHER ==
[~2017-07-22] MED LIST changes: +ADVAIR HFA 115-12 GM INH; +ALLEGRA-D 24 H1 EACH PO; +ASPIRIN CHEWABL81 MG PO; +COMBIGAN 0.2%-0.5 ML OU; +IRON325 M1 PO; +LABETALOL HYDR200 MG PO; +LAXATIVE MAXIMU25 MG PO; +MAPAP EXTRA ST500 MG PO; +MINIPRESS1 M1 PO; +MULTIVITAMINS1 EAC5 PO; +NORVASC10 MG PO; +PLAVIX75 M1 PO; +PROAIR HFA8.5 GM INH; +SYMB160 INH; +TELMISARTAN-HC1 EACH PO; +VITAMIN D32000 UNIT PO; +ZANTAC 150150 MG PO
== END | disposition home or self-care (01) ==
LOC: RESCLI 02:48
DX: I11.0 Hypertensive heart disease with heart failure (principal); I50.9 Heart failure, unspecified; E78.5 Hyperlipidemia, unspecified; J44.9 Chronic obstructive pulmonary disease, unspecified; J45.909 Unspecified asthma, uncomplicated; I25.10 Atherosclerotic heart disease of native coronary artery without angina pectoris; E55.9 Vitamin D deficiency, unspecified; I48.2 Chronic atrial fibrillation; K21.9 Gastro-esophageal reflux disease without esophagitis; H40.9 Unspecified glaucoma; Z87.891 Personal history of nicotine dependence

== ENCOUNTER → 2017-08-24 | Outpatient (CLI) | payer MEDICARE, OTHER ==
[2017-08-24 13:47] LABS: CREATININE 1.85 mg/dL (0.70-1.30); POTASSIUM 4.8 mmol/L (3.5-5.1)
== END | disposition home or self-care (01) ==
LOC: LAB 12:55
PROVIDERS: Internal Medicine Cardiovascular Disease
DX: I48.91 Unspecified atrial fibrillation (principal)

== ENCOUNTER → 2017-08-31 | Outpatient (CLI) | payer MEDICARE, OTHER ==
[2017-08-31 12:36] LABS: CREATININE 1.6 mg/dL (0.70-1.30); POTASSIUM 4.2 mmol/L (3.5-5.1)
[2017-08-31 12:42] LABS: THYROID STIM HORMONE (HS) 5.35 uIU/ml (0.358-4.75)
== END | disposition home or self-care (01) ==
LOC: LAB 11:27
PROVIDERS: Internal Medicine Cardiovascular Disease
DX: I48.91 Unspecified atrial fibrillation (principal); I50.32 Chronic diastolic (congestive) heart failure

== ENCOUNTER → 2017-10-20 | Outpatient (CLI) | payer MEDICARE, OTHER | END | disposition home or self-care (01) | LOC: RESCLI 04:34 | DX: I11.0 Hypertensive heart disease with heart failure (principal); I50.9 Heart failure, unspecified; E78.5 Hyperlipidemia, unspecified; J44.9 Chronic obstructive pulmonary disease, unspecified; I25.10 Atherosclerotic heart disease of native coronary artery without angina pectoris; K21.9 Gastro-esophageal reflux disease without esophagitis; E78.00 Pure hypercholesterolemia, unspecified; I48.2 Chronic atrial fibrillation; E55.9 Vitamin D deficiency, unspecified; J30.2 Other seasonal allergic rhinitis; H40.9 Unspecified glaucoma; E66.9 Obesity, unspecified; Z53.20 Procedure and treatment not carried out because of patient's decision for unspecified reasons; Z87.891 Personal history of nicotine dependence ==

== ENCOUNTER → 2017-12-09 | Outpatient (CLI) | payer MEDICARE, OTHER ==
[2017-12-09 10:41] LABS: ALBUMIN 3.5 gm/dl (3.1-4.5); CREATININE 2.15 mg/dL (0.70-1.30); POTASSIUM 4.4 mmol/L (3.5-5.1); TOTAL PROTEIN 7.4 gm/dL (6.4-8.2)
[2017-12-09 10:44] LABS: INTERNATIONAL NORM RATIO 1.1 (2.0-3.5)
[2017-12-09 10:54] LABS: BASO % 0.4 % (0.0-1.0); EOS # 0.1 10*3/uL (0.0-0.4); EOS % 1.7 % (1.0-4.0); HEMATOCRIT 29.2 % (42.0-52.0); HEMOGLOBIN 9.3 g/dl (14.0-18.0); LYMPH # 0.6 10*3/uL (1.3-4.4); LYMPH % 12.6 % (27.0-41.0); MEAN CORPUSCULAR HGB 31.8 pg (27.0-31.0); MEAN CORPUSCULAR HGB CONC 31.8 g/dl (33.0-37.0); MEAN PLATELET VOLUME 10.5 fl (9.6-12.3); MONO # 0.6 10*3/uL (0.1-1.0); NEUT # 3.5 10*3/uL (2.3-7.9); NEUT % 72.9 % (47.0-73.0); PLATELET COUNT AUTOMATED 246 10*3/uL (130-400); RED BLOOD COUNT 2.92 10*6/uL (4.50-5.90); RED CELL DISTRI WIDTH 15.2 % (0-14.5); WHITE BLOOD COUNT 4.8 10*3/uL (4.8-10.8)
== END | disposition home or self-care (01) ==
LOC: LAB 09:29
PROVIDERS: Family Medicine
DX: J44.9 Chronic obstructive pulmonary disease, unspecified (principal); S81.801A Unspecified open wound, right lower leg, initial encounter; I11.0 Hypertensive heart disease with heart failure; I50.9 Heart failure, unspecified; R06.02 Shortness of breath; R53.1 Weakness; R05 Cough; Z87.891 Personal history of nicotine dependence; X58.XXXA Exposure to other specified factors, initial encounter; Y93.89 Activity, other specified; Y92.89 Other specified places as the place of occurrence of the external cause; Y99.8 Other external cause status

== ENCOUNTER → 2018-01-28 | Outpatient (CLI) | payer MEDICARE, OTHER ==
[2018-01-28 10:06] LABS: ALBUMIN 3.4 gm/dl (3.1-4.5); CREATININE 1.59 mg/dL (0.70-1.30); PHOSPHOROUS 2.9 mg/dL (2.5-4.9); POTASSIUM 3.6 mmol/L (3.5-5.1)
== END | disposition home or self-care (01) ==
LOC: LAB 08:57
PROVIDERS: Internal Medicine Nephrology
DX: N17.9 Acute kidney failure, unspecified (principal)

== ENCOUNTER → 2018-03-10 | Outpatient (CLI) | payer MEDICARE, OTHER | END | disposition home or self-care (01) | LOC: WOUNDCARE 01:51 | DX: L97.211 Non-pressure chronic ulcer of right calf limited to breakdown of skin (principal); L20.89 Other atopic dermatitis; I11.0 Hypertensive heart disease with heart failure; I50.9 Heart failure, unspecified; I25.10 Atherosclerotic heart disease of native coronary artery without angina pectoris; I48.91 Unspecified atrial fibrillation; J44.9 Chronic obstructive pulmonary disease, unspecified; E03.9 Hypothyroidism, unspecified; E78.5 Hyperlipidemia, unspecified; K21.9 Gastro-esophageal reflux disease without esophagitis; M19.90 Unspecified osteoarthritis, unspecified site; E66.9 Obesity, unspecified; Z68.30 Body mass index [BMI] 30.0-30.9, adult; Z86.73 Personal history of transient ischemic attack (TIA), and cerebral infarction without residual deficits; Z87.891 Personal history of nicotine dependence ==

== ENCOUNTER → 2018-03-15 | Outpatient (CLI) | payer MEDICARE, OTHER | END | disposition home or self-care (01) | LOC: CT 08:53 | DX: I25.10 Atherosclerotic heart disease of native coronary artery without angina pectoris (principal); J44.9 Chronic obstructive pulmonary disease, unspecified; R91.8 Other nonspecific abnormal finding of lung field; I10 Essential (primary) hypertension; J84.10 Pulmonary fibrosis, unspecified; R06.02 Shortness of breath ==

== ENCOUNTER → 2018-04-05 | Outpatient (CLI) | payer MEDICARE, OTHER ==
[2018-04-06 11:06] LABS: CREATININE,URINE 74.7 mg/dL (Not Estab.)
== END | disposition home or self-care (01) ==
LOC: LAB 07:56
PROVIDERS: Family Medicine
DX: N18.9 Chronic kidney disease, unspecified (principal)

== ENCOUNTER → 2018-08-13 | Outpatient (CLI) | payer MEDICARE, OTHER ==
[~2018-08-13] MED LIST changes: +CARAFATE1 G1 PO; +CARAFATE1 GM PO; +CARVEDILOL6.25 MG PO; +CLOPIDOGREL75 MG PO; +DEMADEX10 M1 PO; +DOXYCYCLINE MO100 M1 PO; +ELIQUIS5 M1 PO; +FEROSUL325 MG PO; +NATURE'S BLEND F1 MG PO; +OMEPRAZOLE40 MG PO; +PACERONE200 MG PO; +PANTOPRAZOLE SO40 MG PO; +POTASSIUM99 M5 PO; +Synthroid,Lev150 MCG PO; +TORSEMIDE100 MG PO; +TORSEMIDE20 MG PO; +VITAMIN D35000 UNIT PO
== END | disposition home or self-care (01) ==
LOC: RESCLI 01:02
DX: I25.10 Atherosclerotic heart disease of native coronary artery without angina pectoris (principal); J44.9 Chronic obstructive pulmonary disease, unspecified; H40.9 Unspecified glaucoma; J30.2 Other seasonal allergic rhinitis; I48.2 Chronic atrial fibrillation; I11.0 Hypertensive heart disease with heart failure; I50.9 Heart failure, unspecified; K29.61 Other gastritis with bleeding; E55.9 Vitamin D deficiency, unspecified; E78.5 Hyperlipidemia, unspecified; E03.9 Hypothyroidism, unspecified; D64.9 Anemia, unspecified; E53.8 Deficiency of other specified B group vitamins; K59.00 Constipation, unspecified; Z79.899 Other long term (current) drug therapy; Z98.890 Other specified postprocedural states; Z88.8 Allergy status to other drugs, medicaments and biological substances; Z87.891 Personal history of nicotine dependence

== ENCOUNTER → 2018-08-24 | Outpatient (CLI) | payer MEDICARE, OTHER ==
[2018-08-24 12:49] LABS: BASO % 0.3 % (0.0-1.0); EOS % 0.6 % (1.0-4.0); HEMATOCRIT 29.9 % (42.0-52.0); HEMOGLOBIN 9.3 g/dl (14.0-18.0); LYMPH # 0.4 10*3/uL (1.3-4.4); LYMPH % 11.4 % (27.0-41.0); MEAN CELL VOLUME 90.9 fl (80.0-94.0); MEAN CORPUSCULAR HGB 28.3 pg (27.0-31.0); MEAN CORPUSCULAR HGB CONC 31.1 g/dl (33.0-37.0); MEAN PLATELET VOLUME 10.5 fl (9.6-12.3); MONO # 0.6 10*3/uL (0.1-1.0); NEUT # 2.4 10*3/uL (2.3-7.9); NEUT % 71.1 % (47.0-73.0); PLATELET COUNT AUTOMATED 211 10*3/uL (130-400); RED BLOOD COUNT 3.29 10*6/uL (4.50-5.90); RED CELL DISTRI WIDTH 19.2 % (0-14.5); WHITE BLOOD COUNT 3.4 10*3/uL (4.8-10.8)
== END | disposition home or self-care (01) ==
LOC: LAB 11:35
PROVIDERS: Internal Medicine Gastroenterology
DX: K92.2 Gastrointestinal hemorrhage, unspecified (principal)

== ENCOUNTER 2018-10-18 15:06 | Inpatient (IN) | payer MEDICARE, OTHER ==
[~2018-10-18] VITALS: Ht 180.3 cm; Wt 88.5 kg
[2018-10-18] VITALS (8 sets, daily range): BP systolic 120–154; BP diastolic 41–106
--- NOTE | ~2018-10-18 | EKG ---
[place], [place] ELECTROCARDIOGRAM REPORT NAME: SRIDHAR RESTREPO UNIT #: [id number] ROOM: 507 DOCTOR: QUETA DRAFT REPORT BIRTHDATE: [birth year] [facility] Test Date: 2018-10-18 Test Time: 15:19:16 Pat Name: SRIDHAR RESTREPO Department: Room: [facility] Gender: M Clerical Support: : 1940 Requested By: DONNA BALDERAS PA-C Order Number: [id number] Reading MD: Natasha Sotelo Measurements Intervals Marshall Rate: 70 P: 26 MA: 291 QRS: 70 QRSD: 115 T: 166 QT: 434 QTc: 469 Interpretive Statements Sinus rhythm Prolonged MA interval Nonspecific intraventricular conduction delay Abnormal inferior Q waves Repol abnrm suggests ischemia, lateral leads Baseline wander in lead(s) V3 Compared to ECG 08/07/2018 02:13:48 Intraventricular conduction delay now present Inferior Q waves now present Q waves now present Possible ischemia still present Electronically Signed On 10-21-2018 4:25:01 PDT by Natasha Sotelo CM:EKGRPT:ELECTROCARDIOGRAM REPORT 1519 0425 DONNA BALDERAS PA-C EPIPHANY DRAFT REPORT DONNA BALDERAS PA-C
--- NOTE | ~2018-10-18 | CON ---
[place], [place] REPORT OF CONSULTATION NAME: SRIDHAR RESTREPO UNIT #: [id number] ROOM: 507 DOCTOR: ALIX GARVIN MD BIRTHDATE: [birth year] DOS: 10/19/2018 PULMONARY CONSULTATION, EVALUATION AND MANAGEMENT CONSULTATION REQUESTED BY: Hospital service. REASON FOR CONSULTATION: For the assessment of symptoms of shortness of breath. HISTORY OF PRESENT ILLNESS: The patient has been seen and examined in [id number] encounter, history was confirmed. Physical examination performed. Labs were reviewed. Note done by the medical physicist was approved as well. Assessment and management today was personally completed. This is a 78-year-old white male patient with known history of congestive heart failure with diastolic dysfunction, COPD and other problems and recurrent anemia. The patient presented to the hospital. The patient was noted generalized weakness and fatigue symptoms, increased shortness of breath. He does have symptoms of cough, which reported intermittent sputum expectoration of brownish in color, sometimes blood-tinged as well. The coughing has been noted at times for this patient intermittently. Denies symptoms of wheezing. The patient complains of nonspecific left-sided chest, which are noted, localized and nonradiating. He has been admitted to the hospital on 10/18/2108. The patient assessed in the Emergency Room. The patient was seen in the Emergency Room hold over to be admitted to the hospital on the telemetry floor. The patient stated after partially acute respiratory symptoms as previously. REVIEW OF SYSTEMS: CONSTITUTIONAL SYMPTOMS: Fatigue and tiredness noted. Denies any symptoms of fever or chills. EYES: Denied any burning, redness, or tenderness. EAR, NOSE, THROAT SYMPTOMS: Denies sore throat, hoarseness, otalgia, postnasal drainage, or epistaxis. CARDIOVASCULAR SYSTEM: Denies anginal pain, edema, pain of the lower extremity. GASTROINTESTINAL SYMPTOMS: Denies dysphagia, nausea, vomiting, diarrhea. Denies any symptoms of hematemesis, melena, or hematochezia. EYES: Denies any burning, redness, or tenderness. SKIN: No lesions or rashes reported. CENTRAL NERVOUS SYSTEM: No dizziness, headache, diplopia or syncopal episodes. Remaining systems were reviewed. They were noted all negative. Hospitalization noted in August 2018. The patient was admitted to the hospital at that time treated for acute anemia, blood loss, and other problem. The patient was subsequently discharged home. The patient has been monitored and managed by Dr. Staples for the anemia. During last hospitalization, endoscopy done on 08/07/2018 that has been reported with evidence of hemorrhagic gastritis was noted. The patient bleeding from the antrum was identified with a blood clot formation. PAST MEDICAL HISTORY: Known with history of: 1. Chronic obstructive pulmonary disease. [place], [place] REPORT OF CONSULTATION NAME: SRIDHAR RESTREPO UNIT #: [id number] ROOM: 7 DOCTOR: CRISTIAN SAL MD,ALIX BIRTHDATE: [birth year] 2. Hypoxic respiratory failure, which is chronic, 2 liter nasal cannula oxygen use. 3. Congestive heart failure, diastolic dysfunction. 4. Permanent atrial fibrillation. 5. Uncomplicated moderate persistent bronchial asthma. 6. Abdominal aortic aneurysm. 7. Essential hypertension. 8. CVA in 2013. Complete neurologic recovery. 9. Pulmonary nodule, which has been noted stable previous CT scans assessment. 10. Degenerative arthritis. 11. General anxiety disorder. 12. Gastrointestinal bleeding with recurrent anemia, which are noted iron deficient and blood transfusions. PAST SURGICAL HISTORY: 1. Appendectomy. 2. Hernia repair. 3. Cardiac catheterization and coronary artery stent insertion. 4. Endovascular graft patient's abdominal aortic aneurysm management. 5. Surgery of the cervical spine and laminectomy. 6. Right hip surgery. 7. Therapeutic bronchoscopy. 8. EGD and colonoscopies. SOCIAL HISTORY: The patient is a known smoker since teenager 1-1/2 pack of cigarettes until 1994, then history of illicit drug use. FAMILY HISTORY: Father at 62 complication of multiple myeloma. Mother at 50 years old with complication for pulmonary embolism. CURRENT MEDICATIONS: Administered for this patient were noted as Eliquis 5 mg b.i.d., torsemide 100 mg p.o. daily, IV morphine and some other p.r.n. meds. The patient received Lasix one time yesterday 40 mg, and Solu-Medrol 125 mg b.i.d. as well. DRUG ALLERGIES: LISINOPRIL. PHYSICAL EXAMINATION: GENERAL: This is a 78-year-old white male who has been noted awake, alert, without any distress this morning of assessment. Height of 5 feet 11 inches, weight of 195 pounds, BMI recorded as 27. VITAL SIGNS: The patient is a normal temperature since admission last 24 hours, respiratory rate 18-24, heart rate 74, blood pressure is 149/57-140/52. Pulse oxygen saturation was recorded on 2 liters nasal cannula on 100%. HEENT: Examination shows head was atraumatic. Eyes nonicterus. NECK: Supple. CARDIOVASCULAR SYSTEM: S1, S2 audible. LUNGS: Free of any wheezing. Scattered crackles noted bilaterally in the lungs. ABDOMEN: Soft, nontender. Bowel sounds present. [place], [place] REPORT OF CONSULTATION NAME: SRIDHAR RESTREPO UNIT #: [id number] ROOM: 507 DOCTOR: CRISTIAN SAL MD,ALIX BIRTHDATE: [birth year] EXTREMITIES: No edema. MUSCULOSKELETAL: Without acute deformities. SKIN: No lesions or rashes. CENTRAL NERVOUS SYSTEM: Intact grossly. LABORATORY AND DIAGNOSTIC DATA: CBC yesterday, WBC count 4.2, hemoglobin 8.1, hematocrit 26.5, platelet count of 191,000. CBC this morning, WBC count were noted only 1.8, hemoglobin 7.1, hematocrit 20.9, platelet count 142,000. PT/PTT, INR 1.2, PTT 36, was noted mildly abnormal both of those labs. The CMP, BUN 20, creatinine 1.62 on admission yesterday. Potassium 3.4. Troponin 3 sets last 24 hours negative. Ammonia level was noted as 41. The CMP this morning, BUN 22, creatinine 1.34, potassium of 3.4. The chest x-ray that was done yesterday shows very small bilateral pleural fluid with increased pulmonary venous congestion markings. Hyperinflation of lungs noted. The CT scan of the head was completed yesterday was noted without any acute intracranial abnormalities. IMPRESSION: 1. Known history of chronic obstructive pulmonary disease without any evidence of acute exacerbation, acute congestive heart failure, suspected with diastolic dysfunction, recurrent anemia with the previous gastrointestinal bleeding. 2. Abnormal coags this related to use of Eliquis was noted. 3. The patient with cough, possibly acute bronchitis would be considered. There was no evidence of acute exacerbation of chronic obstructive pulmonary disease otherwise. 4. Severe leukopenia recorded less than 5, which was not clear, may be medication induced or lab data to be considered. PLAN OF MANAGEMENT: The patient will be hospitalized. Anemia will be monitored. As far CBC repeated to exclude any lab data. Continuation of the bronchodilator, at which time sputum for Gram stain and culture as well. Oxygen supplementation in case of hypoxia, titrate to maintain pulse ox 92% or greater. There was no need of corticosteroids or any antibiotic at this time. All the culture proved any ongoing acute infection and that will be treated accordingly. The patient may require blood transfusion as well with close cautioned to be given because of history of congestive heart failure, diastolic dysfunction to worsen the congestive heart failure. Continue diuretics and correct electrolytes accordingly. Avoid any anticoagulation until the anemia was reassessed for possibility of bleeding. Thanks for allowing me to participate in care of this patient. [place], [place] REPORT OF CONSULTATION NAME: SRIDHAR RESTREPO UNIT #: [id number] ROOM: 7 DOCTOR: ALIX GARVIN MD BIRTHDATE: [birth year] ALIX FOSTER MD CM:CONSTR:REPORT OF CONSULTATION 1458 10/19/18 8610 interface
--- NOTE | ~2018-10-18 | PR ---
[place], [place] PROGRESS NOTE NAME: SRIDHAR RESTREPO UNIT #: [id number] ROOM: 507 DOCTOR: ALIX GARVIN MD BIRTHDATE: [birth year] DOS: 10/22/2018 PULMONARY PROGRESS NOTE SUBJECTIVE: The patient was independently seen and examined in [id number]-oz-[id number] encounter, history was confirmed. Physical examination performed. Labs were reviewed. Note done by the medical payment poster, was approved. Assessment and management for today's visit was personally completed. The patient noted comfortable at this time, resting on the bed this morning of assessment has not been noted with any ongoing acute new respiratory complaints at the present time. The cough has been present, not completely resolved, but decreased. Shortness of breath is noted significantly improved. The patient denies symptoms of fever or chills. OBJECTIVE: VITAL SIGNS: For the patient recorded as normal temperature, respiratory rate 16, heart rate 60, blood pressure 124/50. Pulse oxygen saturation recorded as 100% saturation on 2 liters nasal cannula. HEENT: Examination shows head was atraumatic. Eyes nonicterus. NECK: Supple. CARDIOVASCULAR: S1, S2 audible. LUNGS: Noted without any wheezing or crackles. ABDOMEN: Soft, nontender. Bowel sounds present. EXTREMITIES: No acute change. LABORATORY DATA: The sputum culture was noted with heavy growth of E. coli. The patient noted pansensitive species. IMPRESSION: 1. The patient with acute tracheobronchitis with left-sided pneumonia. 2. Anemia, status post blood transfusion. 3. Chronic obstructive pulmonary disease and congestive heart failure noted stable. PLAN OF TREATMENT: Discharge the patient on oral antibiotic doxycycline for 7 days. Continue bronchodilator. Continue other home medications. [place], [place] PROGRESS NOTE NAME: SRIDHAR RESTREPO UNIT #: [id number] ROOM: 507 DOCTOR: ALIX GARVIN MD BIRTHDATE: [birth year] ALIX FOSTER MD CM:PNTRANS [id number] ALIX SAL MD 10/23/18 0259 interface
--- NOTE | ~2018-10-18 | PR ---
[place], [place] PROGRESS NOTE NAME: SRIDHAR RESTREPO UNIT #: [id number] ROOM: 507 DOCTOR: ALIX GARVIN MD BIRTHDATE: [birth year] DOS: 10/21/2018 PULMONARY PROGRESS NOTE The patient was independently seen and examined, including afde-ja-tlgo encounter, history was confirmed. Physical examination was performed. Labs were reviewed. Assessment and management of today visit was personally completed. Note done by the medical policy specialist was approved. SUBJECTIVE: The patient has been comfortably resting with reduction in symptoms of shortness of breath, not completely resolved, but decreased. The coughing has been still reported intermittently with purulent sputum no wheezing or chest pain. Sputum culture was collected yesterday. OBJECTIVE: GENERAL: The patient is sitting on the side of bed this morning of assessment. VITAL SIGNS: Normal temperature, respiratory rate 16, heart rate 64, blood pressure 144/66 recorded this morning with the nursing staff. The pulse oxygen 95% saturation on room air. HEENT: Examination shows head was atraumatic. Eyes nonicterus. NECK: Supple. CARDIOVASCULAR: S1, S2 is audible. LUNGS: The patient was noted without any wheezing or crackles. Crackles, which are noted previous examination was cleared up completely. ABDOMEN: Soft, nontender. Bowel sounds present. EXTREMITIES: No acute change. LABORATORY DATA: Cultures of sputum of yesterday was noted as moderate white blood cells with many gram-positive cocci in pairs, chains and clusters, gram-negative diplococci, few gram-negative bacilli, moderate gram-negative bacilli growth was noted, pending culture results. IMPRESSION: 1. The patient who has been currently noted with acute tracheobronchitis with gram-negative infection. 2. Resolving acute congestive heart failure gradually and progressively. PLAN OF TREATMENT: No changes in the plan of management, except starting the patient empirically on the antibiotics at this time with IV Rocephin. All the culture results will be finalized tomorrow prior to consideration of home discharge. [place], [place] PROGRESS NOTE NAME: SRIDHAR RESTREPO UNIT #: [id number] ROOM: 507 DOCTOR: ALIX GARVIN MD BIRTHDATE: [birth year] ALIX FOSTER MD CM:PNTRANS [id number] ALIX SAL MD 11/02/18 0917 interface
--- NOTE | ~2018-10-18 | CON ---
[place], [place] REPORT OF CONSULTATION NAME: SRIDHAR RESTREPO UNIT #: [id number] ROOM: 507 DOCTOR: KEN DAS MD BIRTHDATE: [birth year] DOS: 10/19/2018 CARDIOLOGY CONSULT REASON FOR CONSULTATION: CHF. HISTORY OF PRESENT ILLNESS: The patient is a 78-year-old patient with history of chronic atrial fibrillation, coronary artery disease, CVA, also presented to emergency room for shortness of breath. He also has some cough with brown sputum and also some left-sided chest pain. He noted to have severe anemia and admitted to the hospital and Cardiology consulted for his "congestive heart failure." He complains of some mild dyspnea on exertion, but no PND or orthopnea. No fever or chills. No nausea, vomiting, diarrhea. No chest pains. No dizziness or syncope. No bladder or bowel symptoms. No neurologic symptoms. No genitourinary symptoms. The patient has history of anemia with history of packed red blood cell transfusion. REVIEW OF SYSTEMS: Review of 10 systems negative except as mentioned above. PAST MEDICAL HISTORY: 1. Coronary artery disease. 2. Chronic atrial fibrillation. 3. History of cerebrovascular accident. 4. Anemia. 5. Chronic kidney disease. 6. Chronic obstructive pulmonary disease. 7. Acid reflux. 8. Dyslipidemia. 9. Hypothyroidism. 10. Asthma. PAST SURGICAL HISTORY: 1. History of abdominal aortic aneurysm repair with a stent graft. 2. Appendectomy. 3. Hernia surgery. 4. Hip surgery. 5. History of cardiac stents. 6. History of back surgeries. SOCIAL HISTORY: The patient is a former smoker, quit 20 years ago. Occasionally drinks alcohol, but no illicit drugs. FAMILY HISTORY: Nil contributory disease. Mother in her 40s from pulmonary embolism. Father in his 60s from leukemia. ALLERGIES: Reviewed. HOME MEDICATIONS: Reviewed. PHYSICAL EXAMINATION: [place], [place] REPORT OF CONSULTATION NAME: SRIDHAR RESTREPO UNIT #: [id number] ROOM: 507 DOCTOR: KEN DAS MD BIRTHDATE: [birth year] VITAL SIGNS: Blood pressure 136/51, pulse 56, respiratory rate was 18, weight 88.4 kilos. GENERAL: Alert, comfortable, in no acute distress. HEENT: Pupils are round and equal. No jaundice. Tongue was moist and pharynx clear. NECK: Supple, no distended neck veins, no carotid bruit. CHEST: Symmetrical, nontender. LUNGS: Clear to auscultation bilaterally. HEART: Regular rhythm, no S3, no palpable thrills. ABDOMEN: Benign. Bowel sounds normal, nontender. EXTREMITIES: 1+ edema. Distal pulses palpable. SKIN: Warm and dry. No cyanosis, no clubbing. RECTAL: Deferred. GENITOURINARY: Deferred. NEUROLOGIC: The patient is alert with no focal neurologic deficit. DIAGNOSTIC TESTS: EKG rhythm strips, labs and imaging studies reviewed. PERTINENT LABS: Including hemoglobin 7.1. potassium 3.6, creatinine 1.34. Troponins are negative. IMPRESSION: 1. Acute on chronic diastolic heart failure. 2. Severe anemia. 3. Chronic atrial fibrillation. 4. Coronary artery disease. 5. History of cerebrovascular accident. 6. Mild hypokalemia. 7. Chronic kidney disease. 8. Peripheral vascular disease, status post abdominal aortic aneurysm, endovascular stent graft. RECOMMENDATIONS: 1. Continue diuretics for his acute on chronic diastolic heart failure. 2. The patient is receiving packed red blood transfusion. 3. Monitor his H and H. If his hemoglobin drops tomorrow, I would hold the Eliquis for a few days. 4. If the patient develops recurrent GI bleed, we may have to take him off the Eliquis; however, the patient has a high CHADS2-VASc score and also high HAS-BLED score. 5. No family at bedside at the time of examination. 6. Supplement his potassium and monitor his blood pressure and heart rates and renal function. [place], [place] REPORT OF CONSULTATION NAME: SRIDHAR RESTREPO UNIT #: [id number] ROOM: 507 DOCTOR: THIAGO HORTON,KEN BIRTHDATE: [birth year] KEN DAS MD CM:CONSTR:REPORT OF CONSULTATION 0005 10/20/18 2241 interface
--- NOTE | ~2018-10-18 | PR ---
[place], [place] PROGRESS NOTE NAME: SRIDHAR RESTREPO UNIT #: [id number] ROOM: 507 DOCTOR: KEN DAS MD BIRTHDATE: [birth year] DOS: 10/20/2018 REASON FOR VISIT: Congestive heart failure. SUBJECTIVE: The patient is feeling better. He received some blood transfusion yesterday. He would like to go home. He denies any chest pain, shortness of breath. No PND, no orthopnea. No nausea, vomiting or diarrhea. No fever and chills. No bladder or bowel symptoms. No neurologic symptoms. REVIEW OF SYSTEMS: Review of 8 systems negatives as mentioned above. RHYTHM STRIPS: The patient is in sinus rhythm. PHYSICAL EXAMINATION: VITAL SIGNS: Blood pressure 142/70, pulse 60, respiratory rate of 14. GENERAL: Alert, comfortable, in no acute distress. HEENT: Pupils are round and equal, no jaundice. NECK: Supple, no distended neck veins, no carotid bruit. CHEST: Symmetrical, nontender. LUNGS: Few scattered rhonchi. HEART: Regular rate and rhythm, no S3, no palpable thrills. ABDOMEN: Benign, nontender. Bowel sounds normal. EXTREMITIES: Showed trace edema. Distal pulses palpable. SKIN: Warm and dry. No cyanosis, no clubbing. RECTAL: Deferred. GENITOURINARY: Deferred. MEDICATIONS AND LABORATORY DATA: Reviewed. Hemoglobin 9.2 today. IMPRESSION: 1. Chronic diastolic heart failure. 2. Anemia. 3. Borderline sinus bradycardia. 4. Mild hypokalemia. RECOMMENDATIONS: 1. Continue current medications. We will check his BMP tomorrow. 2. No further cardiac testing. 3. Monitor the heart rate, blood pressure and hemoglobin. 4. No family at bedside at the time of examination. [place], [place] PROGRESS NOTE NAME: SRIDHAR RESTREPO UNIT #: [id number] ROOM: 507 DOCTOR: KEN DAS MD BIRTHDATE: [birth year] KEN DAS MD CM:PNTRANS [id number] KEN DAS MD 10/21/18 1000 interface
--- NOTE | ~2018-10-18 | PR ---
[place], [place] PROGRESS NOTE NAME: SRIDHAR RESTREPO UNIT #: [id number] ROOM: 507 DOCTOR: KEN DAS MD BIRTHDATE: [birth year] DOS: 10/21/2018 REASON FOR VISIT: Chronic heart failure and atrial fibrillation. HISTORY: The patient is feeling better. Denies any chest pain or shortness of breath. He would like to go home. No PND, no orthopnea, no palpitations, no dizziness. REVIEW OF SYSTEMS: Review of the 8 systems negative except as mentioned above. RHYTHM STRIPS: The patient in sinus rhythm. PHYSICAL EXAMINATION: VITAL SIGNS: Blood pressure 144/66, pulse 64, respiratory rate was 18, weight 88.3 kg. GENERAL: Alert, comfortable, in no acute distress. HEAD AND NECK: Pupils are round and equal, no jaundice. Neck supple. No distended neck veins. No carotid bruit. CHEST: Symmetrical, nontender. LUNGS: A few scattered rhonchi. HEART: Regular rhythm, no S3, no palpable thrills. ABDOMEN: Benign, nontender. Bowel sounds normal. EXTREMITIES: Showed no edema. Distal pulses palpable. SKIN: Warm and dry. No cyanosis, no clubbing. RECTAL: Deferred. GENITOURINARY: Deferred. REVIEW OF DIAGNOSTIC TESTS: Hemoglobin 8.7, platelet 174,000. IMPRESSION: 1. Chronic diastolic heart failure. 2. Anemia, status post transfusion of packed red blood cells. 3. Paroxysmal atrial fibrillation 4. Coronary artery disease. 5. Chronic kidney disease. 6. Peripheral vascular disease status post abdominal aortic aneurysm endovascular graft. 7. History of cerebrovascular accident. RECOMMENDATIONS: 1. The patient is feeling better. 2. As far as atrial fibrillation, his CHADS2-VASc score is 6 with annual bleeding risk of about 9.7%. The patient also had a very high HAS-BLED score of 6 with yearly stroke risk of more than 10%. 3. Continue current cardiac medications. 4. If the patient developed recurrent anemia or GI bleed, we may have to consider to discontinue Eliquis. This was discussed with the patient and he understood risk of thromboembolic events without the Eliquis. 5. We can discharge him from the cardiac standpoint. 6. Follow up with [facility] at [facility] in 1-2 [place], [place] PROGRESS NOTE NAME: SRIDHAR RESTREPO UNIT #: [id number] ROOM: 507 DOCTOR: THIAGO HORTON,KEN BIRTHDATE: 40 weeks. 7. No family at bedside at the time of examination. KEN DAS MD CM:PNTRANS [id number] 8 KEN DAS MD 10/22/188 interface
--- NOTE | ~2018-10-18 | PR ---
[place], [place] PROGRESS NOTE NAME: SRIDHAR RESTREPO UNIT #: [id number] ROOM: 507 DOCTOR: CRISTIAN SAL MD,ALIX BIRTHDATE: [birth year] DOS: 10/20/2018 The patient independently seen and examined in [id number] encounter, history was confirmed. Physical examination performed. Labs reviewed. Assessment and management for today's visit was personally completed. Note done by the medical records tech was approved. SUBJECTIVE: The patient appeared to be comfortable at this time, resting comfortably in the bed, still complaining of cough with some sputum expectoration. Denies symptoms of chest pain, fever or chills. Denies symptoms of nausea or vomiting. OBJECTIVE: VITAL SIGNS: For the patient, which has been recorded shows a temperature noted normal, respiratory rate 14, heart rate of 57, blood pressure of 158/60. Pulse oxygen saturation recorded 2 liters nasal cannula 100% saturation. HEENT: Head was atraumatic. Eyes nonicterus. NECK: Supple. CARDIOVASCULAR: S1, S2 audible. LUNGS: The patient was noted without any wheezing or crackle. Breaths are noted mildly decreased bilaterally. ABDOMEN: Soft, nontender. Bowel sounds present. EXTREMITIES: The patient was noted without acute edema. LABORATORY DATA: The patient's CBC that I ordered yesterday, WBC count was essentially noted normal at 7.7. CBC this morning, was noted with a WBC count normal as well 6.5, hemoglobin today was noted 9.2 and platelet count was normal. FINAL IMPRESSION: 1. The patient has been currently noted with acute congestive heart failure, which is improving. 2. Anemia, which has been noted chronic without any evidence of acute gastrointestinal bleeding. 3. Leukopenia not noted with actual reduction of the WBC count, which was noted yesterday with significant decline of the white cell count. PLAN OF TREATMENT: Continue to treat the patient, congestive heart failure at the present time and other medical management as in progress. Usual care. Sputum for Gram stain culture was ordered and sent for culture. There was no need of antibiotic at present time until proven with the abnormal sputum cultures or other cultures. [place], [place] PROGRESS NOTE NAME: SRIDHAR RESTREPO UNIT #: [id number] ROOM: 507 DOCTOR: ALIX GARVIN MD BIRTHDATE: [birth year] ALIX FOSTER MD CM:PNTRANS 1254 [id number] ALIX SAL MD 11/02/18 0916 interface
--- NOTE | ~2018-10-18 | PR ---
[place], [place] PROGRESS NOTE NAME: SRIDHAR RESTREPO UNIT #: [id number] ROOM: 507 DOCTOR: HENRY EID DO BIRTHDATE: [birth year] DOS: 10/21/2018 PULMONARY PROGRESS NOTE SUBJECTIVE: The patient appeared to be comfortably resting in bed. The patient was sitting up and talking to his roommate. The patient was eating breakfast. The patient states that he is not short of breath today. The patient states that he feels about at his baseline. OBJECTIVE: VITAL SIGNS: The patient's temperature is 98.4, pulse 64, respirations 16, and blood pressure 144/66, patient is 97% on room air. HEENT: Normocephalic, atraumatic. NECK: Supple, nontender, trachea midline. CARDIOVASCULAR: S1, S2 audible. LUNGS: Clear to auscultation bilaterally, decreased breath sounds bilaterally. ABDOMEN: Soft, nontender. Bowel sounds are present. EXTREMITIES: The patient was noted without any acute edema, clubbing, or cyanosis. LABORATORY DATA: The patient's sputum culture came back positive today for the preliminary Gram stain showing GPC in pairs, chains and clusters, gram-negative diplococci and gram-negative bacilli. The patient's hemoglobin was noted to be 8.7 today. The hemoglobin was 9.2 yesterday. All other labs unremarkable. ASSESSMENT: 1. Acute congestive heart failure, heart failure with preserved ejection fraction, left ventricle EF was 55 as of his last echo in 07/2018. 2. Anemia. The patient's H and H remained stable since he received 1 unit of packed red blood cells. 3. Leukopenia is questionable. Lab error was transient abnormality. However, the patient's white count has remained stable since repeat the same day of the original. 4. Acute bronchitis, pneumonitis. PLAN: Continue to treat the patient with congestive heart failure at this time. Gram stain was ordered and we will wait for finalization of these labs. Plan for discharge tomorrow once we know of the final cultures. Richi Eid DO [place], [place] PROGRESS NOTE NAME: SRIDHAR RESTREPO UNIT #: [id number] ROOM: 507 DOCTOR: HENRY EID DO BIRTHDATE: [birth year] ALIX FOSTER MD CM:AURA [id number] HENRY EID DO 10/22/18 0241 interface
[~2018-10-18 15:06] MED LIST changes: -CARAFATE1 GM PO; -CLOPIDOGREL75 MG PO; -DEMADEX10 M1 PO; -OMEPRAZOLE40 MG PO; -POTASSIUM99 M5 PO; -VITAMIN D35000 UNIT PO
--- NOTE | 2018-10-18 15:20 | NUR ---
Patient reports he is starting to have a heaviness in his chest.
[2018-10-18 15:38] LABS: BASO % 0.2 % (0.0-1.0); EOS # 0.1 10*3/uL (0.0-0.4); EOS % 1.4 % (1.0-4.0); HEMATOCRIT 26.5 % (42.0-52.0); HEMOGLOBIN 8.1 g/dl (14.0-18.0); LYMPH # 0.5 10*3/uL (1.3-4.4); MEAN CORPUSCULAR HGB CONC 30.6 g/dl (33.0-37.0); MEAN PLATELET VOLUME 10.7 fl (9.6-12.3); MONO # 0.6 10*3/uL (0.1-1.0); MONO % 14.5 % (3.0-9.0); NEUT % 71.4 % (47.0-73.0); PLATELET COUNT AUTOMATED 191 10*3/uL (130-400); RED BLOOD COUNT 2.79 10*6/uL (4.50-5.90); RED CELL DISTRI WIDTH 15.6 % (0-14.5); WHITE BLOOD COUNT 4.2 10*3/uL (4.8-10.8)
[2018-10-18 15:50] LABS: ACT PARTIAL THROMBO TIME 36.1 SECONDS (20.0-32.1); INTERNATIONAL NORM RATIO 1.2 (2.0-3.5)
[2018-10-18 15:55] LABS: ALBUMIN 2.7 gm/dl (3.1-4.5); ALKALINE PHOSPHATASE 171 U/L (45-117); BUN 20 mg/dl (7-24); CHLORIDE 105 mmol/L (98-107); CREATININE 1.62 mg/dL (0.70-1.30); LIPASE 264 U/L (73-393); POTASSIUM 3.4 mmol/L (3.5-5.1); SGOT/AST 30 IU/L (3-35); SGPT/ALT 16 U/L (12-78); SODIUM 141 mmol/L (136-145); TOTAL PROTEIN 6.8 gm/dL (6.4-8.2)
[2018-10-18 15:56] LABS: TROPONIN I < 0.015 ng/ml (<0.045)
[2018-10-18 16:23] LABS: BILIRUBIN NEGATIVE (NEGATIVE); BLOOD NEGATIVE (NEGATIVE); CLARITY CLEAR (CLEAR); COLOR YELLOW (YELLOW); GLUCOSE NEGATIVE (NEGATIVE); KETONE NEGATIVE (NEGATIVE); LEUKO ESTERASE NEGATIVE (NEGATIVE); NITRITE NEGATIVE (NEGATIVE)
[2018-10-18] MEDS ORDERED: OMEPRAZOLE40 MG PO (17:14)
[2018-10-18] MEDS ORDERED: ELIQUIS5 M1 PO (17:16)
[2018-10-18] MEDS ORDERED: CLOPIDOGREL75 MG PO (17:16)
--- NOTE | 2018-10-18 19:14 | NUR ---
Pt order Toresemide 100mg, when attempting to admin this med to the Pt he stated that he already took this medication this morning. Spoke with Dr. Medina and she stated to hold the med if the Pt stated that he already took it.
[2018-10-19] VITALS (11 sets, daily range): BP systolic 130–150; BP diastolic 47–64
--- NOTE | 2018-10-19 03:32 | NUR ---
PATIENT IN BED RESTING EYES AT THIS TIME. NO DISTRESS NOTED. EASILY AROUSED. VSS. CONT LIGHT RAIL TRAIN OPERATOR AND PULSE OX IN PLACE. CALL LIGHT WITHIN REACH. RN WILL CONT TO MONITOR
[2018-10-19 05:26] LABS: HEMATOCRIT 23.9 % (42.0-52.0); HEMOGLOBIN 7.1 g/dl (14.0-18.0); MEAN CELL VOLUME 92.3 fl (80.0-94.0); MEAN CORPUSCULAR HGB 27.4 pg (27.0-31.0); MEAN CORPUSCULAR HGB CONC 29.7 g/dl (33.0-37.0); MEAN PLATELET VOLUME 10.1 fl (9.6-12.3); PLATELET COUNT AUTOMATED 142 10*3/uL (130-400); RED BLOOD COUNT 2.59 10*6/uL (4.50-5.90); RED CELL DISTRI WIDTH 15.4 % (0-14.5)
[2018-10-19 05:57] LABS: ALBUMIN 2.5 gm/dl (3.1-4.5); ALKALINE PHOSPHATASE 153 U/L (45-117); BUN 22 mg/dl (7-24); CHLORIDE 105 mmol/L (98-107); CREATININE 1.34 mg/dL (0.70-1.30); PHOSPHOROUS 3.4 mg/dL (2.5-4.9); POTASSIUM 3.4 mmol/L (3.5-5.1); SGOT/AST 22 IU/L (3-35); SGPT/ALT 10 U/L (12-78); SODIUM 141 mmol/L (136-145); TOTAL PROTEIN 6.4 gm/dL (6.4-8.2)
[2018-10-19 06:04] LABS: PLATELET SUFFICIENCY NORMAL (NORMAL); TOTAL CELLS COUNTED 100 #CELLS
[2018-10-19 06:08] LABS: WHITE BLOOD COUNT 1.8 10*3/uL (4.8-10.8)
--- NOTE | 2018-10-19 06:10 | NUR ---
CRITICAL 1.8, DR DONNELLY AWARE NO NEW ORDERS AT THIS TIME
--- NOTE | 2018-10-19 06:34 | NUR ---
CONSULTS WERE CALLED FOR DR PERRIN AND DR FOSTER
--- NOTE | 2018-10-19 10:18 | NUR ---
LAB CALLED PT'S BLOOD READY.
--- NOTE | 2018-10-19 10:20 | NUR ---
RECEIVED A BED ON THE 5 5TH FLOOR.
[2018-10-19] MEDS ORDERED: TORSEMIDE100 MG PO ×2 (10:27→10:28)
--- NOTE | 2018-10-19 10:40 | NUR ---
A 78, admitted to , under the services of MRAKIE Saucedo DO with a diagnosis of COPD EXACERBATION. Chief complaint is SHORTNESS OF BREATH. Patient arrived via stretcher from ER. Monitor applied. Initial assessment completed. Vital signs taken and recorded. MARKIE SAUCEDO DO notified of admission to the unit. Orders received. See assessment for past medical history, medications and allergies. Patient and/or family oriented to unit. [facility] visitation policy reviewed. Clothing/patient valuable form completed. CORETZ ARANDA
--- NOTE | 2018-10-19 15:00 | NUR ---
Business Intelligence Developer in to talk to patient. Patient states lives at home with his . There are 0 steps in the home. There is a wheelchair ramp. Physician: Dr. Raleigh Blank Pharmacy: [facility] for short term medications, [facility] for maintenance medications Home health services: [facility], [facility] previously but not currently Patient's level of ADLs: MINIMAL ASSIST Patient has working utilities: yes DME: cane, nebulizer, O2 @ 2L nc at bedtime, portable O2 tanks, O2 supplier [facility] Follow-up physician's appointment after d/c: will be made by the hospitalist nurse director upon discharge Does patient want to access PORTAL?: no Discharge plan discussed with patient. He lives at home with his . He is independent in his ADLs and uses a cane for long ambulations. Discussed home health care services and he denies any home needs at this time. When medically stable he will be discharged to home. WARNER GALAN
[2018-10-19 16:08] LABS: BASO % 0.1 % (0.0-1.0); HEMATOCRIT 28.9 % (42.0-52.0); LYMPH # 0.7 10*3/uL (1.3-4.4); LYMPH % 9.1 % (27.0-41.0); MEAN CELL VOLUME 91.2 fl (80.0-94.0); MEAN CORPUSCULAR HGB 28.4 pg (27.0-31.0); MEAN CORPUSCULAR HGB CONC 31.1 g/dl (33.0-37.0); MEAN PLATELET VOLUME 10.5 fl (9.6-12.3); MONO # 0.8 10*3/uL (0.1-1.0); MONO % 11.4 % (3.0-9.0); NEUT # 5.8 10*3/uL (2.3-7.9); RED BLOOD COUNT 3.17 10*6/uL (4.50-5.90); RED CELL DISTRI WIDTH 15.2 % (0-14.5); WHITE BLOOD COUNT 7.3 10*3/uL (4.8-10.8)
[2018-10-19 16:11] LABS: PLATELET COUNT AUTOMATED 231 10*3/uL (130-400)
[2018-10-20] VITALS: BP 115/50
[2018-10-20 07:49] VITALS: BP 158/60
--- NOTE | 2018-10-20 08:31 | NUR ---
PT SITITNG UP IN BED. NO DISTRESS NOTED; WILL MONITOR
[2018-10-20 09:33] LABS: BASO % 0.3 % (0.0-1.0); EOS # 0.1 10*3/uL (0.0-0.4); EOS % 1.2 % (1.0-4.0); HEMATOCRIT 29.9 % (42.0-52.0); HEMOGLOBIN 9.2 g/dl (14.0-18.0); LYMPH # 0.6 10*3/uL (1.3-4.4); LYMPH % 9.3 % (27.0-41.0); MEAN CORPUSCULAR HGB 28.3 pg (27.0-31.0); MEAN CORPUSCULAR HGB CONC 30.8 g/dl (33.0-37.0); MEAN PLATELET VOLUME 10.2 fl (9.6-12.3); MONO # 0.7 10*3/uL (0.1-1.0); MONO % 11.3 % (3.0-9.0); NEUT % 77.6 % (47.0-73.0); PLATELET COUNT AUTOMATED 234 10*3/uL (130-400); RED BLOOD COUNT 3.25 10*6/uL (4.50-5.90); RED CELL DISTRI WIDTH 15.4 % (0-14.5); WHITE BLOOD COUNT 6.5 10*3/uL (4.8-10.8)
[2018-10-20 11:29] VITALS: BP 142/70
--- NOTE | 2018-10-20 13:28 | NUR ---
Occupational Therapy evaluation offered. Patient declined the need for therapy reporting that he is independent in ADLs, functional mobility w/cane. Discharge OT referral. Asia Garcia OTR/L
--- NOTE | 2018-10-20 13:40 | NUR ---
PHYSICAL THERAPY PAtient rpeorts he has no PT needs. He Reports he is (i) throughout room, to restroom with IV pole and in hallways prn. D/C PT as patient requests. Thank you for this referral. Suzanna Mireles,PT
[2018-10-20 16:00] VITALS: BP 150/44
[2018-10-20 20:00] VITALS: BP 150/46
[2018-10-21] VITALS: BP 124/41
[2018-10-21 07:09] LABS: BASO % 0.3 % (0.0-1.0); EOS # 0.1 10*3/uL (0.0-0.4); EOS % 2.2 % (1.0-4.0); HEMATOCRIT 28.2 % (42.0-52.0); HEMOGLOBIN 8.7 g/dl (14.0-18.0); LYMPH # 0.3 10*3/uL (1.3-4.4); LYMPH % 10.2 % (27.0-41.0); MEAN CELL VOLUME 91.9 fl (80.0-94.0); MEAN CORPUSCULAR HGB 28.3 pg (27.0-31.0); MEAN CORPUSCULAR HGB CONC 30.9 g/dl (33.0-37.0); MEAN PLATELET VOLUME 9.9 fl (9.6-12.3); MONO # 0.4 10*3/uL (0.1-1.0); MONO % 13.7 % (3.0-9.0); NEUT # 2.4 10*3/uL (2.3-7.9); PLATELET COUNT AUTOMATED 174 10*3/uL (130-400); RED BLOOD COUNT 3.07 10*6/uL (4.50-5.90); RED CELL DISTRI WIDTH 15.2 % (0-14.5); WHITE BLOOD COUNT 3.2 10*3/uL (4.8-10.8)
[2018-10-21 07:20] LABS: ALBUMIN 2.7 gm/dl (3.1-4.5); BUN 27 mg/dl (7-24); CHLORIDE 105 mmol/L (98-107); POTASSIUM 3.7 mmol/L (3.5-5.1); SGPT/ALT 17 U/L (12-78); SODIUM 140 mmol/L (136-145); TOTAL PROTEIN 6.4 gm/dL (6.4-8.2)
[2018-10-21 07:38] VITALS: BP 144/66
[2018-10-21 07:54] LABS: ALKALINE PHOSPHATASE 146 U/L (45-117)
[2018-10-21 08:05] LABS: CREATININE 1.37 mg/dL (0.70-1.30); SGOT/AST 32 IU/L (3-35)
--- NOTE | 2018-10-21 08:14 | NUR ---
PT RESTING IN BED/ NO DISTRESS NOTED. WILL MONITOR
--- NOTE | 2018-10-21 09:00 | NUR ---
Garment Parts Cutter Hand in to see patient. No new needs or request at this time. He denies any home needs. When medically stable he will be discharged to home.
[2018-10-21] MEDS ORDERED: TORSEMIDE20 MG PO (11:08)
[2018-10-21 12:00] VITALS: BP 143/49
[2018-10-21 16:00] VITALS: BP 128/55
[2018-10-21 20:00] VITALS: BP 137/53
[2018-10-22] VITALS: BP 117/47
[2018-10-22 08:00] VITALS: BP 112/56
--- NOTE | 2018-10-22 08:08 | NUR ---
PT RESTING IN BED. NO DISTRESS NOTED. WILL MONITOR
[2018-10-22 12:00] VITALS: BP 124/50
[2018-10-22] MEDS ORDERED: DOXYCYCLINE100 M3 PO (14:19)
--- NOTE | 2018-10-22 15:03 | NUR ---
Discharge instructions reviewed with patient/family. Patient receptive and verbalizes understanding. Follow-up care arranged. Written instructions given to patient/family. ALF WEI
[2018-11-28] MEDS ORDERED: VITAMIN D35000 UNIT PO (06:59)
[2018-11-28] MEDS ORDERED: POTASSIUM99 M5 PO (07:02)
[2018-12-02] MEDS ORDERED: CARAFATE1 GM PO (18:14)
[2018-12-02] MEDS ORDERED: OMEPRAZOLE40 MG PO (18:16)
== END 2018-10-22 15:03 | disposition home or self-care (01) | DRG 177 ==
LOC: ED 15:06 → 5E 17:53 → EDHOLD 17:53 → 5E 10-19 10:19
PROVIDERS: Internal Medicine; Internal Medicine Critical Care Medicine; Physician Assistant; Student in an Organized Health Care Education/Training Program; ADMIT Internal Medicine
PROC: 30233N1 Transfusion of Nonautologous Red Blood Cells into Peripheral Vein, Percutaneous Approach (ICD-10-PCS; principal; 2018-10-19)
DX: J15.6 Pneumonia due to other Gram-negative bacteria (principal); E43 Unspecified severe protein-calorie malnutrition; I50.33 Acute on chronic diastolic (congestive) heart failure; I13.0 Hypertensive heart and chronic kidney disease with heart failure and stage 1 through stage 4 chronic kidney disease, or unspecified chronic kidney disease; J44.1 Chronic obstructive pulmonary disease with (acute) exacerbation; J96.11 Chronic respiratory failure with hypoxia; J44.0 Chronic obstructive pulmonary disease with (acute) lower respiratory infection; J20.9 Acute bronchitis, unspecified; M19.90 Unspecified osteoarthritis, unspecified site; E87.6 Hypokalemia; D50.9 Iron deficiency anemia, unspecified; E78.2 Mixed hyperlipidemia; E55.9 Vitamin D deficiency, unspecified; I48.0 Paroxysmal atrial fibrillation; F41.1 Generalized anxiety disorder; I48.2 Chronic atrial fibrillation; N18.3 Chronic kidney disease, stage 3 (moderate); K21.0 Gastro-esophageal reflux disease with esophagitis; I73.9 Peripheral vascular disease, unspecified; I25.119 Atherosclerotic heart disease of native coronary artery with unspecified angina pectoris; K22.70 Barrett's esophagus without dysplasia; K44.9 Diaphragmatic hernia without obstruction or gangrene; E03.9 Hypothyroidism, unspecified; E78.00 Pure hypercholesterolemia, unspecified; Z86.73 Personal history of transient ischemic attack (TIA), and cerebral infarction without residual deficits; Z99.81 Dependence on supplemental oxygen; Z88.8 Allergy status to other drugs, medicaments and biological substances; Z91.018 Allergy to other foods; Z90.49 Acquired absence of other specified parts of digestive tract; Z98.49 Cataract extraction status, unspecified eye; Z85.828 Personal history of other malignant neoplasm of skin; Z95.5 Presence of coronary angioplasty implant and graft; Z87.891 Personal history of nicotine dependence; Z80.6 Family history of leukemia; Z84.89 Family history of other specified conditions; Z82.3 Family history of stroke; Z82.49 Family history of ischemic heart disease and other diseases of the circulatory system; Z68.27 Body mass index [BMI] 27.0-27.9, adult

== ENCOUNTER → 2018-11-03 | Outpatient (CLI) | payer MEDICARE, OTHER ==
[~2018-11-03] MED LIST changes: +BUMETANIDE1 MG PO; +CARAFATE1 GM PO; +CLOPIDOGREL75 MG PO; +DEMADEX10 M1 PO; +LACTULOSE20 GM/30 M PO; +OMEPRAZOLE40 MG PO; +POTASSIUM99 M5 PO; +VITAMIN D35000 UNIT PO
== END | disposition home or self-care (01) ==
LOC: RESCLI 00:16
DX: L30.9 Dermatitis, unspecified (principal); D50.9 Iron deficiency anemia, unspecified; I11.0 Hypertensive heart disease with heart failure; I50.33 Acute on chronic diastolic (congestive) heart failure; E78.5 Hyperlipidemia, unspecified; I25.10 Atherosclerotic heart disease of native coronary artery without angina pectoris; E55.9 Vitamin D deficiency, unspecified; I48.2 Chronic atrial fibrillation; K21.9 Gastro-esophageal reflux disease without esophagitis; J44.9 Chronic obstructive pulmonary disease, unspecified; E03.9 Hypothyroidism, unspecified; J30.2 Other seasonal allergic rhinitis; K59.04 Chronic idiopathic constipation; Z79.899 Other long term (current) drug therapy; Z87.891 Personal history of nicotine dependence

== ENCOUNTER → 2018-11-08 | Outpatient (CLI) | payer MEDICARE, OTHER | END | disposition home or self-care (01) | LOC: LAB 10:42 | DX: R05 Cough (principal) ==

== ENCOUNTER → 2018-11-09 | Outpatient (CLI) | payer MEDICARE, OTHER ==
[2018-11-09 11:09] LABS: EOS # 0.1 10*3/uL (0.0-0.4); EOS % 1.5 % (1.0-4.0); HEMATOCRIT 21.4 % (42.0-52.0); HEMOGLOBIN 6.2 g/dl (14.0-18.0); LYMPH # 0.5 10*3/uL (1.3-4.4); LYMPH % 16.4 % (27.0-41.0); MEAN CELL VOLUME 93.4 fl (80.0-94.0); MEAN CORPUSCULAR HGB 27.1 pg (27.0-31.0); MONO # 0.5 10*3/uL (0.1-1.0); MONO % 15.2 % (3.0-9.0); NEUT # 2.2 10*3/uL (2.3-7.9); NEUT % 66.3 % (47.0-73.0); PLATELET COUNT AUTOMATED 169 10*3/uL (130-400); RED BLOOD COUNT 2.29 10*6/uL (4.50-5.90); RED CELL DISTRI WIDTH 15.6 % (0-14.5); WHITE BLOOD COUNT 3.3 10*3/uL (4.8-10.8)
[2018-11-09 11:18] LABS: BILIRUBIN NEGATIVE (NEGATIVE); BLOOD NEGATIVE (NEGATIVE); CLARITY CLEAR (CLEAR); COLOR YELLOW (YELLOW); GLUCOSE NEGATIVE (NEGATIVE); KETONE NEGATIVE (NEGATIVE); LEUKO ESTERASE NEGATIVE (NEGATIVE); NITRITE NEGATIVE (NEGATIVE); UROBILINOGEN 0.2 E.U./dl (0.2-1.0)
[2018-11-09 11:27] LABS: URINE CREATININE RANDOM 73.7 mg/dL
[2018-11-09 11:33] LABS: ALBUMIN 2.5 gm/dl (3.1-4.5); CREATININE 1.59 mg/dL (0.70-1.30); PHOSPHOROUS 3.2 mg/dL (2.5-4.9)
[2018-11-09 12:35] LABS: FERRITIN 53.8 ng/mL (22.0-322.0); PTH INTACT 33.7 pg/mL (18.5-88.0)
[2018-11-09 13:47] LABS: VITAMIN D, 25-HYDROXY 33.5 ng/mL (30-100)
== END | disposition home or self-care (01) ==
LOC: LAB 10:31
PROVIDERS: Internal Medicine Nephrology
DX: D63.1 Anemia in chronic kidney disease (principal); N18.3 Chronic kidney disease, stage 3 (moderate); N25.81 Secondary hyperparathyroidism of renal origin; R05 Cough; Z79.899 Other long term (current) drug therapy

== ENCOUNTER 2018-12-13 09:59 | Inpatient (IN) | payer MEDICARE, OTHER ==
[~2018-12-13] VITALS: Ht 180.3 cm; Wt 84.5 kg
--- NOTE | ~2018-12-13 | PR ---
[place], [place] PROGRESS NOTE NAME: SRIDHAR RESTREPO UNIT #: [id number] ROOM: 531 DOCTOR: HERIBERTO DE LA TORRE BIRTHDATE: [birth year] DOS: 12/14/2018 CARDIOLOGY PROGRESS NOTE. The patient is being seen in followup for acute on chronic diastolic heart failure. SUBJECTIVE: The patient denies any shortness of breath at rest, but has not been ambulating. He was started on bumetanide infusion yesterday. He has diuresed negative 1.5 liters. He had an ultrasound of the abdomen yesterday that did demonstrate ascites. Telemetry reveals sinus rhythm. OBJECTIVE: VITAL SIGNS: He is afebrile, pulse in the 60s and regular, respirations 16, blood pressure 120/47, saturating 96% on room air. GENERAL APPEARANCE: A well-appearing male, lying in bed, in no distress. NECK: Supple. Jugular venous pressure remains elevated to the angle of the jaw with positive hepatojugular reflux. No carotid bruits heard. RESPIRATORY: Bilateral mid and basal rales. CARDIOVASCULAR: Regular rhythm with normal rate. No murmurs. ABDOMEN: Distended. Slightly softer than yesterday. Nontender. EXTREMITIES: 2+ pitting edema up to the thighs. LABORATORY DATA: Hemoglobin 8.8, platelets 170. Creatinine 1.35, stable from yesterday. Potassium is 3.5, magnesium 1.8. ProBNP from yesterday was elevated at 784. Current cardiac medications include enoxaparin 30 mg subcutaneous daily, amiodarone 200 mg p.o. daily, carvedilol 6.25 mg b.i.d., atorvastatin 80 mg daily, amlodipine 5 mg daily, bumetanide 0.5 mg per hour infusion. Echocardiogram from 07/2018 showed normal LV systolic function with an EF of 55% and LVH. IMPRESSION: 1. Acute on chronic diastolic congestive heart failure, remains grossly volume overloaded. 2. Paroxysmal atrial fibrillation with elevated CHAD2-VASc score, anticoagulation on hold because of recent gastrointestinal bleed. 3. Anemia. 4. Recent gastrointestinal bleed due to hemorrhagic gastritis, chronic issues of chronic kidney disease, hypertension, history of CVA, AAA repair and peripheral vascular disease. RECOMMENDATIONS: 1. Continue bumetanide infusion and continue to monitor strict I's and O's and daily weights, he has been on fluid restriction of 1800 mL per day. 2. Therapeutic paracentesis. 3. Otherwise continue current cardiac medications. 4. Anticoagulants remain on hold. [place], [place] PROGRESS NOTE NAME: SRIDHAR RESTREPO UNIT #: [id number] ROOM: 531 DOCTOR: HERIBERTO DE LA TORRE BIRTHDATE: [birth year] Dr. HERIBERTO DE LA TORRE MD CM:PNTRANS [id number] HERIBERTO DE LA TORRE 12/15/18 0210 interface
--- NOTE | ~2018-12-13 | PR ---
[place], [place] PROGRESS NOTE NAME: SRIDHAR RESTREPO UNIT #: [id number] ROOM: 531 DOCTOR: HERIBERTO DE LA TORRE BIRTHDATE: [birth year] DOS: 12/17/2018 Patient has been seen in followup for acute on chronic diastolic heart failure, and paroxysmal atrial fibrillation. SUBJECTIVE: Abdominal ultrasound performed yesterday revealed partial nonocclusive thrombus in the inferior vena cava, which is reported as a new finding compared to the recent ultrasound 11/29/2018. Additionally, there is diffuse hepatic steatosis with a mildly nodular cirrhotic contour of the liver with trace residual ascites. He has been initiated on intravenous heparin and oral warfarin has been started. The patient reports no new symptoms. He diuresed net negative another 1.5 liters and weight continues to go down. Creatinine which had bumped yesterday is stable, unchanged from yesterday at 1.57. He remained in sinus rhythm on telemetry, sinus bradycardia. OBJECTIVE: VITAL SIGNS: Afebrile, pulse in the 60s, respirations 20, blood pressure 148/52, saturating 94% on room air. GENERAL: Elderly gentleman, in no distress. HEENT: Moist mucous membranes. NECK: Supple. JVP continues to be elevated. No carotid bruits. RESPIRATORY: Scant basilar rales. CARDIOVASCULAR: Regular rhythm, normal rate. There is a murmur at the right upper sternal border. ABDOMEN: Soft and distended. He has some superficial abdominal varicosities. EXTREMITIES: Still with 2+ pitting edema up to the thighs, but improved. LABORATORY DATA: Hemoglobin is 8.5, platelets 142, chloride 108, bicarb 31, BUN 24, creatinine 1.57, same as yesterday, but up from 1.37 two days back. No significant elevation in AST or ALT. TSH came back at 28.4. Abdominal ultrasound findings described above. Current cardiac medications include warfarin 4 mg daily, intravenous heparin by weight, bumetanide infusion 0.25 mg per hour, potassium chloride 40 mEq p.o. b.i.d., amiodarone 200 mg p.o. daily, carvedilol 6.25 mg p.o. b.i.d., atorvastatin 80 mg daily, amlodipine 5 mg daily. ASSESSMENT: 1. Acute on chronic diastolic congestive heart failure. He remains volume overloaded, but I do not believe this is heart failure and we have new findings suggesting cirrhosis of the liver. 2. New finding of nodular cirrhotic liver and portal hypertension. 3. IVC thrombus, new finding compared to 11/2018 ultrasound, nonocclusive. 4. Ascites, status post paracentesis on 12/14/2018 for 3.7 liters. 5. Paroxysmal atrial fibrillation with an elevated CHADS2-VASc score, maintaining sinus rhythm on amiodarone, which he has been on for several years. [place], [place] PROGRESS NOTE NAME: SRIDHAR RESTREPO UNIT #: [id number] ROOM: 531 DOCTOR: HERIBERTO DE LA TORRE BIRTHDATE: [birth year] He was not on anticoagulation because of recent GI bleed on rivaroxaban. 6. Anemia. 7. Recent gastrointestinal bleed due to hemorrhagic gastritis. 8. Acute kidney injury and chronic kidney disease. 9. Chronic issues of hypertension, history of CVA, peripheral vascular disease with abdominal aortic aneurysm and endovascular repair of that. 10. Coronary artery disease, status post prior PCI. RECOMMENDATIONS: 1. Agree with evaluation for possible IVC filter given his high risk for anticoagulation with hemorrhagic gastritis. 2. I will discontinue his amiodarone, I am not sure if this has contributed to his liver toxicity and development of cirrhosis. He is known to have fatty liver in the past. 3. We will continue bumetanide infusion the rest of today, but we will plan to stop it later today. 4. Otherwise, we will continue current cardiac medications. We will also stop the atorvastatin because of liver dysfunction. 5. We will discuss further with GI and primary team regarding the next steps in management of this complicated patient. Dr. HERIBERTO DE LA TORRE MD CM:PNTRANS [phone] HERIBERTO DE LA TORRE 12/17/182002 interface
--- NOTE | ~2018-12-13 | PR ---
[place], [place] PROGRESS NOTE NAME: SRIDHAR RESTREPO UNIT #: [id number] ROOM: 531 DOCTOR: THIAGO HORTONKEN BIRTHDATE: [birth year] DOS: 12/23/2018 REASON FOR VISIT: Diastolic heart failure, coronary artery disease and atrial fibrillation. The patient is feeling better. Denies any chest pain, shortness of breath. His blood cultures are still running low. No PND, no orthopnea. No nausea, vomiting or diarrhea. His Xarelto was on hold. REVIEW OF SYSTEMS: Review of the 8 systems negative except as mentioned above. PHYSICAL EXAMINATION: VITAL SIGNS: Blood pressure 138/58, pulse 63, respiratory rate 16. Rhythm strips, the patient was in sinus rhythm. GENERAL: Alert, comfortable, in no acute distress. His is at bedside. HEENT: Pupils are round and equal, no jaundice. NECK: Supple, no distended neck veins. No carotid bruit. CHEST: Symmetrical, nontender. LUNGS: Clear to auscultation bilaterally. HEART: Regular rhythm, no S3. Grade 1/6 systolic murmur. ABDOMEN: Bowel sounds normal. EXTREMITIES: Showed 1+ edema. Distal pulses are palpable. SKIN: Warm and dry. No cyanosis or clubbing. RECTAL: Deferred. GENITOURINARY: Deferred. NEUROLOGIC: The patient is alert with no focal neurologic deficit. REVIEW OF DIAGNOSTIC TESTS: Hemoglobin 7.5. IMPRESSION: 1. Acute on chronic diastolic heart failure. 2. Paroxysmal atrial fibrillation. 3. Coronary artery disease. 4. Abdominal aortic aneurysm status post stent graft. 5. Inferior vena cava thrombus, status post IVC filter. 6. Chronic recurrent anemia due to upper gastrointestinal bleed. 7. Anasarca. 8. Ascites. RECOMMENDATIONS: 1. Continue his current cardiac medications. 2. Hold his Xarelto until his hemoglobin is stable. 3. Cardiology will sign off and see as needed. 4. The patient can be discharged home from the cardiac standpoint and he will follow with Dr. Ibarra for his IVC filter. The above treatment plan and his cardiac care diagnoses including coronary artery disease, peripheral vascular disease, atrial fibrillation was discussed with him and his at bedside and all questions were answered. [place], [place] PROGRESS NOTE NAME: SRIDHAR RESTREPO UNIT #: [id number] ROOM: 531 DOCTOR: THIAGO HORTON,KEN BIRTHDATE: [birth year] Follow with [facility] in 1-2 weeks after the discharge. KEN DAS MD CM:PNTRANS [phone] KEN DAS MD 12/24/18 0303 interface
--- NOTE | ~2018-12-13 | PR ---
[place], [place] PROGRESS NOTE NAME: SRIDHAR RESTREPO UNIT #: [id number] ROOM: 531 DOCTOR: HERIBERTO DE LA TORRE BIRTHDATE: [birth year] DOS: 12/15/2018 CARIOLOGY PROGRESS NOTE The patient is being seen in followup for otshq-xh-clnintl diastolic heart failure. SUBJECTIVE: The patient denies shortness of breath, states his breathing is improved. He underwent abdominal paracentesis yesterday, removing 3700 mL of fluid. He continues to diurese well, is negative 2.3 liters, not including the output from the paracentesis. He denies any chest pain. REVIEW OF SYSTEMS: Negative except as described above. Still with some abdominal distention, but significantly improved. OBJECTIVE: VITAL SIGNS: He is afebrile, pulse in the 50s to 70s, maintaining sinus, respirations 18, blood pressure this morning 104/43, saturating 94% on room air. GENERAL APPEARANCE: A well-appearing male, up in the bathroom and moving around without any distress. NECK: Supple. Jugular venous pressure remains elevated, somewhat improved from yesterday with a positive hepatojugular reflux. No carotid bruits. RESPIRATORY: Persistent bibasilar rales. CARDIOVASCULAR: Regular rhythm, normal rate. There is a systolic murmur loudest at the right upper sternal border, early systolic and harsh. Incorrectly documented on yesterday's note. Absence of murmur. ABDOMEN: Distended but softer than yesterday. Nontender. EXTREMITIES: 2+ pitting edema, persistent up to the thigh, but improved from yesterday. LABORATORY DATA: Hemoglobin 8.2, down from 8.8; platelets 167; potassium low at 3.1; creatinine 1.37. CURRENT CARDIAC MEDICATIONS: Include amiodarone 200 mg p.o. daily, carvedilol 6.25 mg p.o. b.i.d., atorvastatin 80 mg p.o. daily, amlodipine 5 mg p.o. daily, and bumetanide 0.5 mg per hour infusion. Echocardiogram from 07/21/2018 showed normal LV systolic function with an EF of 55% and left ventricular hypertrophy with no significant valvular disease. ASSESSMENT: 1. Tntcz-yf-uxrojkc diastolic congestive heart failure, remains overloaded, but improving. 2. Ascites, status post abdominal paracentesis on 12/14/2018 for 3.7 liters. 3. Paroxysmal atrial fibrillation with elevated CHADS2-VASc score, maintaining sinus rhythm on amiodarone, anticoagulation on hold because of recent gastrointestinal bleed. 4. Anemia. 5. Recent gastrointestinal bleed due to hemorrhagic gastritis. 6. Chronic issues of chronic kidney disease, hypertension, history of [place], [place] PROGRESS NOTE NAME: SRIDHAR RESTREPO UNIT #: [id number] ROOM: 531 DOCTOR: HERIBERTO DE LA TORRE BIRTHDATE: [birth year] cerebrovascular accident, peripheral vascular disease and abdominal aortic aneurysm repair. RECOMMENDATIONS: 1. Continue bumetanide infusion. 2. Replace potassium aggressively. 3. Continue current cardiac medications. 4. Anticoagulants remain on hold because of anemia and GI bleed. Overall, the patient is improving and making steady progress. Dr. HERIBERTO DE LA TORRE MD CM:PNTRANS [phone] HERIBERTO DE LA TORRE 12/16/18 0339 interface
--- NOTE | ~2018-12-13 | PR ---
[place], [place] PROGRESS NOTE NAME: SRIDHAR RESTREPO UNIT #: [id number] ROOM: 531 DOCTOR: THIAGO HORTON,EKN BIRTHDATE: [birth year] DOS: 12/20/2018 CARDIOLOGY PROGRESS NOTE REASON FOR VISIT: CHF and paroxysmal atrial fibrillation. SUBJECTIVE: The patient is feeling better. Denies any chest pain or shortness of breath, palpitations or dizziness. No PND, no orthopnea. Edema is much better. No nausea or vomiting. He is anticipating paracentesis today. REVIEW OF SYSTEMS: Review of 10 systems negative except as mentioned above. PHYSICAL EXAMINATION: VITAL SIGNS: Blood pressure 94/71, pulse 62, respirations 16, weight 86.6 kilos. RHYTHM STRIPS: The patient in sinus rhythm. GENERAL: Alert, comfortable, in no acute distress. HEENT: Pupils are round and equal, no jaundice. NECK: Supple, no distended neck veins. No carotid bruit. CHEST: Symmetrical, nontender. LUNGS: A few scattered rhonchi. Good air entry bilaterally. HEART: Regular rhythm, no S3. Grade 1/6 systolic murmur. ABDOMEN: Positive ascites. Nontender. Bowel sounds normal. EXTREMITIES: Showed 1 to 2+ edema. Distal pulses are fair. SKIN: Warm and dry. No cyanosis, no clubbing. RECTAL: Deferred. GENITOURINARY: Deferred. NEUROLOGIC: The patient is alert with no focal neurologic deficit. MEDICATIONS AND LABORATORY DATA: Reviewed. Hemoglobin 7.0, creatinine 1.7, platelets 170,000. IMPRESSION: 1. Acute on chronic diastolic heart failure. 2. Coronary artery disease. 3. Paroxysmal atrial fibrillation. 4. Severe anemia. 5. Ascites. 6. Borderline hypotension. 7. Inferior vena cava thrombus. RECOMMENDATIONS: 1. Continue current cardiac medications including Bumex. 2. The patient is anticipating repeat paracentesis today. 3. Continue Xarelto for his inferior vena cava thrombus. The patient had status post IVC filter. 4. Continue to hold his amiodarone and statins. 5. No further cardiac testing. 6. No family at bedside at the time of my examination. [place], [place] PROGRESS NOTE NAME: SRIDHAR RESTREPO UNIT #: [id number] ROOM: 531 DOCTOR: KEN DAS MD BIRTHDATE: [birth year] KEN DAS MD CM:AURA [phone] KEN DAS MD 12/21/18 0104 interface
--- NOTE | ~2018-12-13 | PR ---
[place], [place] PROGRESS NOTE NAME: SRIDHAR RESTREPO UNIT #: [id number] ROOM: 531 DOCTOR: HERIBERTO DE LA TORRE BIRTHDATE: [birth year] DOS: 12/18/2018 The patient is being seen in followup for acute on chronic diastolic heart failure and paroxysmal atrial fibrillation. SUBJECTIVE: The patient underwent IVC filter placement with Dr. Yanez yesterday via the right femoral approach. He was started on rivaroxaban as well. He was negative another 1.5 liters and I stopped bumetanide drip last evening. Creatinine seems to have been stable. The patient states that his abdomen is quite distended and uncomfortable. His breathing is overall better, but he feels pretty fatigued. He was started on lactulose and moving his bowels frequently, so he is afraid to walk in the hallway. His ammonia was found to be elevated. OBJECTIVE: VITAL SIGNS: Afebrile, pulse 60 and regular, respirations 20, blood pressure 110/46, saturating 98% on 2 liters. GENERAL: Elderly male sitting up in bed, in no distress. NECK: Supple. JVP appears normal. No carotid bruits. RESPIRATORY: Diminished at the bases. CARDIOVASCULAR: Regular rhythm, normal rate. Systolic murmur throughout upper sternal border. ABDOMEN: Quite distended and firm today. Mildly tender. EXTREMITIES: 1+ pitting edema bilateral lower extremities improved, but still present. LABORATORY DATA: Hemoglobin 8.2, platelets 177, BUN 24, creatinine 1.57, stable over the past couple of days, ammonia was 100. PLAN: Current cardiac medications include rivaroxaban 15 mg p.o. b.i.d., potassium chloride 40 mEq p.o. b.i.d., carvedilol 6.25 mg p.o. b.i.d., amlodipine 5 mg p.o. daily. Amiodarone and statin were discontinued yesterday. IMPRESSION: 1. Acute on chronic diastolic congestive heart failure. He does remain volume overloaded, but I think the liver is playing a large role in this and the heart failure probably also resolved. 2. New diagnosis of cirrhosis with portal hypertension. 3. 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 4. Ascites. 5. Paroxysmal atrial fibrillation with an elevated CHADS2-VASc score, status post prior DC cardioversion a couple of years back, maintaining sinus rhythm on amiodarone, which I discontinued because of cirrhosis. He was not on anticoagulation because of recent GI bleed, but now being anticoagulated for the IVC thrombus. 6. Anemia. 7. Recent gastrointestinal bleed due to hemorrhagic gastritis. 8. Acute kidney injury and chronic kidney disease, stable over the past few [place], [place] PROGRESS NOTE NAME: SRIDHAR RESTREPO UNIT #: [id number] ROOM: 531 DOCTOR: HERIBERTO DE LA TORRE BIRTHDATE: [birth year] days. 9. Coronary artery disease, status post prior percutaneous coronary intervention in 2016. 10. Chronic issues of hypertension, history of cerebrovascular accident, peripheral vascular disease with abdominal aortic aneurysm repaired endovascularly. RECOMMENDATIONS: 1. He is off bumetanide infusion, we will start bumetanide 2 mg p.o. b.i.d. 2. We will continue off amiodarone and monitor his heart rhythm. Hopefully, his beta subhash will suppress any recurrence of atrial fibrillation, but amiodarone needed to be stopped because of the cirrhosis. 3. We will have to watch him carefully. Now, he is on anticoagulation, he recently had a significant bleed on apixaban. 4. Further recommendations regarding the cirrhosis per GI as they are on board. Dr. HERIBETRO DE LA TORRE MD CM:PNTRANS [id number] HERIBERTO DE LA TORRE 12/19/18 0017 interface
--- NOTE | ~2018-12-13 | PR ---
[place], [place] PROGRESS NOTE NAME: SRIDHAR RESTREPO UNIT #: [id number] ROOM: 531 DOCTOR: HERIBERTO DE LA TORRE BIRTHDATE: [birth year] DOS: 12/19/2018 CARDIOLOGY PROGRESS NOTE The patient is being seen in followup for acute on chronic diastolic heart failure, paroxysmal atrial fibrillation. SUBJECTIVE: The patient denies any new complaints today. He has been ambulating around the unit, states he does get short of breath after his second trip around. Denies any chest pain. He is planned for an abdominal paracentesis, diagnostic tomorrow. He remains in sinus rhythm on telemetry. He still reports some lower extremity edema. OBJECTIVE: VITAL SIGNS: He is afebrile, pulse in the 70s, respirations 20, blood pressure 118/68, saturating 98% on 2 liters nasal cannula. GENERAL APPEARANCE: Elderly male, lying in bed, in no distress. ENT: Moist mucous membranes. NECK: Supple. JVP does still appear elevated. No carotid bruits. RESPIRATORY: He does have some scant basilar rales. CARDIOVASCULAR: Regular rate and rhythm with a normal rate. Systolic murmur at the right upper sternal border. ABDOMEN: Distended, soft. Mildly tender to palpation, especially in the right upper quadrant. EXTREMITIES: Lower extremities with 1-2+ pitting edema. LABORATORY DATA: Hemoglobin 7.7, down from 8.2, platelets 163. Potassium is 4.9, chloride 109, BUN 27, creatinine 1.66 up from 1.57. Current cardiac medications include rivaroxaban 15 mg p.o. b.i.d., bumetanide 2 mg p.o. b.i.d., carvedilol 6.25 mg p.o. b.i.d., amlodipine 5 mg p.o. daily. ASSESSMENT: 1. Acute on chronic diastolic congestive heart failure. He does remain volume overloaded. This seems to be multifactorial with heart failure and cirrhosis with portal hypertension. 2. New diagnosis of cirrhosis with portal hypertension. 3. 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 4. Ascites, plan for diagnostic paracentesis tomorrow, status post therapeutic paracentesis for 3.7 liters last week. 5. Paroxysmal atrial fibrillation with elevated CHADS2-VASc score, status post prior DC cardioversion several years back and had been on amiodarone, we had discontinued because of the newly discovered cirrhosis. He was not being anticoagulated because of GI bleed, but is being anticoagulated for the thrombus. 6. Anemia with hemoglobin and hematocrit drifting down. [place], [place] PROGRESS NOTE NAME: SRIDHAR RESTREPO UNIT #: [id number] ROOM: 531 DOCTOR: HERIBERTO DE LA TORRE BIRTHDATE: [birth year] 7. Recent gastrointestinal bleed due to hemorrhagic gastritis. 8. Acute kidney injury and chronic kidney disease, slight bump in creatinine. 9. Coronary artery disease, status post PCI in 2016. 10. Chronic issue of hypertension, history of cerebrovascular accident, peripheral vascular disease with an abdominal aortic aneurysm repaired endovascularly. RECOMMENDATIONS: Certainly a difficult clinical situation in this overall complex patient. Volume status clearly demonstrates volume overload, difficult to tease out how much is purely heart failure and how much is from volume retention from cirrhosis. His JVP appears elevated today compared to yesterday. He does have some rales. I had switched him to p.o., bumetanide yesterday. For today, I would recommend the followin. Give one dose of intravenous bumetanide 2 mg x 1 and continue him on 2 mg p.o. b.i.d., otherwise. 2. Continue off amiodarone, continue to watch heart rhythm. Beta subhash could be up titrated as amiodarone effect wears off, hopefully to suppress recurrence of atrial fibrillation. 3. Concern for bleeding, he is a high risk for bleeding with his recent hemorrhagic gastritis and now being anticoagulated for the IVC thrombus. 4. He is planned for a diagnostic paracentesis tomorrow. Dr. HERIBERTO DE LA TORRE MD CM:PNTRANS [phone] HERIBERTO DE LA TORRE 12/19/181814 interface
--- NOTE | ~2018-12-13 | CON ---
[place], [place] REPORT OF CONSULTATION NAME: SRIDHAR RESTREPO UNIT #: [id number] ROOM: 531 DOCTOR: HERIBERTO DE LA TORRE BIRTHDATE: [birth year] DOS: 12/13/2018 CARDIOLOGY CONSULTATION REASON FOR CONSULTATION: CHF. HISTORY OF PRESENT ILLNESS: The patient is a 78-year-old gentleman with known history of paroxysmal atrial fibrillation, maintained in sinus rhythm on amiodarone, coronary artery disease, status post prior PCI, chronic diastolic heart failure. He was recently admitted with CHF and a GI bleed, at which time his apixaban was discontinued. He did have an EGD that demonstrated hemorrhagic gastritis, and he has been off anticoagulation since that time. He was discharged from the hospital on December 02. He has apparently had progressive lower extremity edema and abdominal distention since that time. He recently saw Dr. Juliocesar Alvarado in the office who increased his home dose of torsemide to include an extra 60 mg every Thursday, Thursday, Thursday on top of his 100 mg daily dose of torsemide. The patient states he has had progressive shortness of breath, weight gain and severe abdominal distention that is very uncomfortable. He was told if he was not getting better by today, to present to the hospital, so that is what he did. He is unable to lie flat, he gets dyspnea on exertion. He denies chest pain. He denies dietary indiscretion and he is faithful with his medications. Initial workup in the ER showed a creatinine of 1.39, negative troponin less than 0.015 and a proBNP is pending. Chest x-ray demonstrated bilateral pleural effusions. He was given 2 mg of intravenous bumetanide and he states he did fill up his urinal, but no output has yet been documented. CARDIAC HISTORY AND RECENT TESTIN. Recent echocardiogram from July 2018 showed EF of 55% with mild LVH and stage 2 diastolic dysfunction. 2. Last stress test was in March 2016, which showed no evidence of ischemia and mildly dilated LV with a normal ejection fraction. 3. He has had prior PCI, but I do not have the details of this. I am currently not able to get into [facility]. OTHER PAST MEDICAL HISTORY: 1. Recent GI bleed due to gastritis. 2. Paroxysmal atrial fibrillation, maintained in sinus rhythm on amiodarone, with a CHADS2-VASc score of 6. 3. Chronic diastolic heart failure. 4. COPD. 5. History of CVA. 6. Hypertension. 7. History of peripheral vascular disease with endovascular repair of aortic aneurysm. PAST SURGICAL HISTORY: 1. Stent graft to repair a AAA. 2. Hernia surgery. [place], [place] REPORT OF CONSULTATION NAME: SRIDHAR RESTREPO UNIT #: [id number] ROOM: 531 DOCTOR: HERIBERTO DE LA TORRE BIRTHDATE: [birth year] 3. Hip surgery. 4. Appendectomy due to ruptured appendix. 5. Multiple back surgeries. SOCIAL HISTORY: He is a former smoker, quit 20 years ago. Denies alcohol or drug use. FAMILY HISTORY: No history of premature coronary artery disease. ALLERGIES: LISINOPRIL. HOME MEDICATIONS: Include: 1. Amiodarone 200 mg p.o. daily. 2. Amlodipine 5 mg p.o. daily. 3. Atorvastatin 80 mg daily. 4. Carvedilol 6.25 mg b.i.d. 5. Torsemide 100 mg daily plus additional 60 mg p.o. Thursday, Thursday, Thursday. 6. Potassium 99 mg daily. 7. In addition, he is on multiple inhalers and vitamins as well as omeprazole, levothyroxine, sucralfate. PHYSICAL EXAMINATION: VITAL SIGNS: He is afebrile, pulse 78 and regular, respirations 18, blood pressure 151/48, saturating 100% on room air. GENERAL APPEARANCE: An elderly gentleman, lying in bed, in no distress. EYES: Pupils equal, round and reactive to light. ENT: Moist mucous membranes. NECK: Supple. Jugular venous pressure is elevated to the angle of the jaw. No carotid bruits. RESPIRATORY: Few bibasilar rales. CARDIOVASCULAR: Regular rhythm with a normal rate. No murmurs. ABDOMEN: Significantly distended and firm. Mildly tender to palpation diffusely. EXTREMITIES: Warm. There is 2+ pitting edema, bilateral lower extremities up to thighs. He moves all extremities. SKIN: No lesions or rashes. NEUROLOGIC: Nonfocal. LABORATORY DATA: Hemoglobin 9.4, platelets 186. BUN 19, creatinine 1.39, troponin less than 0.015. ProBNP is pending. Electrocardiogram shows normal sinus rhythm with evidence of prior anterior infarct, nonspecific T-wave abnormalities. There is a first-degree AV block. Chest x-ray: Small bilateral pleural effusions. Abdominal ultrasound, ascites noted with the largest pocket in the left lower quadrant. IMPRESSION: 1. Acute on chronic diastolic heart failure, significantly volume overloaded at present. [place], [place] REPORT OF CONSULTATION NAME: SRIDHAR RESTREPO UNIT #: [id number] ROOM: 531 DOCTOR: HERIBERTO DE LA TORRE BIRTHDATE: [birth year] 2. Paroxysmal atrial fibrillation, maintaining sinus rhythm on amiodarone. CHADS2-VASc score is 6. Anticoagulation on hold due to recent gastrointestinal bleed with severe anemia. 3. History of coronary artery disease, status post prior percutaneous coronary intervention, details unknown. 4. Recent gastrointestinal bleed due to severe gastritis. 5. Anemia. 6. Chronic issues of chronic obstructive pulmonary disease, chronic kidney disease, hypertension, history of cerebrovascular accident, history of peripheral vascular disease with abdominal aortic aneurysm endovascular repair. RECOMMENDATIONS: The patient appears significantly volume overloaded on exam and has not been responding to outpatient diuretic therapy. He is in decompensated heart failure and I would recommend the followin. Start intravenous bumetanide infusion at 0.5 mg per hour, monitor strict I's and O's, daily weights, and fluid restrict to 1800 mL and continue low sodium diet. 2. Therapeutic paracentesis. 3. Continue amiodarone as well as his beta subhash, statin, and his amlodipine. 4. The patient had been considered to be referred for Watchman, but this is currently on hold due to his multiple acute issues and readmissions. Unfortunately, we have to continue to hold anticoagulation, though he is at high risk of a CVA. Thank you for the consultation. We will closely monitor his clinical status. Dr. HERIBERTO DE LA TORRE MD CM:CONSTR:REPORT OF CONSULTATION 1736 12/14/18 0756 interface
--- NOTE | ~2018-12-13 | PR ---
[place], [place] PROGRESS NOTE NAME: SRIDHAR RESTREPO UNIT #: [id number] ROOM: 531 DOCTOR: WALT SYKES MD BIRTHDATE: [birth year] DOS: 12/17/2018 GASTROENDOSCOPIC REPORT HISTORY OF PRESENT ILLNESS: This is a 78-year-old patient, who has presented with shortness of breath, found to be in congestive heart failure. PAST MEDICAL HISTORY: The patient with past medical history of pleural effusion, recurrent ascites, cirrhotic liver, hepatitis history in 60s, atrial fibrillation, abdominal aortic aneurysm, CVA, obesity, and hypertension, all has been recognized, splenomegaly. PAST SURGICAL HISTORY: Cardioversion, bronchoscopy, appendectomy, aortic aneurysm repair, coronary artery disease, and lower back surgery. MEDICATIONS: Medication list reviewed. ALLERGIES: LISINOPRIL, FOOD ALLERGIES TO COCONUT, TREE NUTS. SOCIAL HISTORY: He is a past smoker, rare alcohol consumer. FAMILY HISTORY: Noncontributory. REVIEW OF SYSTEMS: HEENT: In general, denies double vision or blurred vision. RESPIRATORY: Denies shortness of breath acutely. CARDIOVASCULAR: Denies chest pain. DIGESTIVE SYSTEM: No hematemesis. No hematochezia. PHYSICAL EXAMINATION: GENERAL: This is a pale patient. HEENT: Head is normocephalic, nontraumatic. Mouth and buccal mucosa benign. NECK: Supple. No thyromegaly. No cervical lymphadenopathy. CHEST: Symmetric anatomy, equal expansion. Few scattered rhonchi, bibasilar. HEART: Normal sinus rhythm. No gallop. No murmur. ABDOMEN: Soft. No hepato-organomegaly. Bowel sounds present. No pulsatile mass. Obese. Caput medusae is noticed. EXTREMITIES: Pedal edema 4+. NEUROLOGIC: Alert and slow orientation. LABORATORY DATA: Labs reviewed. Records reviewed. Latest CBC: H and H of 8 and 25 with platelet of 175. Basic metabolic within normal limit. INR was 1.2. DIAGNOSTIC DATA: Sonographic study showed diffuse hepatic steatosis, nodular cirrhotic liver, splenomegaly, and all has been recognized, ascites has been known. Other adjunctive diagnoses as outlined above in consultation of yesterday. PLAN AND DISCUSSION: We are going to obtain a serum ammonia level. We are [place], [place] PROGRESS NOTE NAME: SRIDHAR RESTREPO UNIT #: [id number] ROOM: 531 DOCTOR: ONEL HORTON,WALT BIRTHDATE: [birth year] going to schedule him for paracentesis again on Thursday morning. We are going to keep him on low salt diet and clinical reassessment. WALT SYKES MD CM:PNTRANS [id number] WALT SYKES MD 12/18/18 0444 interface
--- NOTE | ~2018-12-13 | PR ---
[place], [place] PROGRESS NOTE NAME: SRIDHAR RESTREPO UNIT #: [id number] ROOM: 531 DOCTOR: HERIBERTO DE LA TORRE BIRTHDATE: [birth year] DOS: 12/16/2018 CARDIOLOGY PROGRESS NOTE. The patient is being seen in followup for acute on chronic diastolic heart failure. SUBJECTIVE: The patient continues to improve. He states his breathing is better. He still feels that he has a lot of swelling, however. According to ins and outs, had no negative fluid balance overnight, was actually slightly positive about 100 mL, but his weight continues to decrease. Creatinine bumped slightly from 1.37-1.57. He remains in sinus rhythm on telemetry with no evidence of atrial fibrillation. REVIEW OF SYSTEMS: Negative except as described above. He does have some abdominal discomfort and still feels distended. PHYSICAL EXAMINATION: VITAL SIGNS: Afebrile, pulse in the 60s, respirations 20, blood pressure 110/52, saturating 95% on room air. GENERAL APPEARANCE: Older male sitting up in bed, in no distress. ENT: Moist mucous membranes. NECK: Supple. JVP remains elevated with positive hepatojugular reflux. No carotid bruits. RESPIRATORY: Basilar rales persist. CARDIOVASCULAR: Regular rate rhythm with a normal rate. There is a soft systolic murmur at the right upper sternal border. ABDOMEN: Remains distended. He has positive bowel sounds. Soft. Mild tenderness. He appears to have some abdominal varicosities as well. EXTREMITIES: 1-2+ pitting edema from the lower legs up to the thighs, improved but persists. LABORATORY DATA: Hemoglobin 8, platelets 159. BUN 23; creatinine 1.57, up from 1.37. Albumin remains low at 2.3. TSH is 28.4 with a free T4 of 1.05 and free T3 is pending. Current cardiac medications include: 1. Bumetanide infusion 0.5 mg per hour. 2. Potassium chloride 40 mEq p.o. b.i.d. 3. Amiodarone 200 mg p.o. daily. 4. Levothyroxine 150 mcg daily. 5. Carvedilol 6.25 mg p.o. b.i.d. 6. Atorvastatin 80 mg p.o. daily. 7. Amlodipine 5 mg p.o. daily. Echocardiogram from 07/21/2018 showed normal LV systolic function with an EF of 55% and LVH. There is no significant valvular disease. IMPRESSION: [place], [place] PROGRESS NOTE NAME: SRIDHAR RESTREPO UNIT #: [id number] ROOM: 531 DOCTOR: HERIBERTO DE LA TORRE BIRTHDATE: [birth year] 1. Acute on chronic diastolic congestive heart failure. Remains volume overloaded, but continues to improve. I am trying to wonder if there is another etiology for his anasarca, question thyroid or liver abnormalities. 2. Ascites, status post abdominal paracentesis on 12/14/2018 of 3.7 liters, he still looks pretty distended. 3. Paroxysmal atrial fibrillation with elevated CHADS2-VASc score, maintaining sinus rhythm on amiodarone. Anticoagulation on hold because of recent GI bleed. Possible outpatient evaluation for Watchman device has been on hold because of recent acute issues. 4. Anemia. 5. Recent gastrointestinal bleed due to hemorrhagic gastritis. 6. Chronic issues of chronic kidney disease, hypertension, history of cerebrovascular accident, peripheral vascular disease with abdominal aortic aneurysm, endovascular repair. 7. Acute kidney injury on chronic kidney disease. RECOMMENDATIONS: 1. We will decrease bumetanide infusion to 0.25 mg per hour because of the increased creatinine, but I do believe he is still volume overloaded. 2. We will look into other causes for the anasarca. I have ordered a TSH, which came back as quite elevated, and he will need his levothyroxine adjusted. 3. I have ordered a repeat abdominal ultrasound to look for ascites and to evaluate liver for any signs of cirrhosis. 4. Otherwise, continue current cardiac medications. We will continue to follow. Dr. HERIBERTO DE LA TORRE MD CM:PNTRANS [id number] HERIBERTO DE LA TORRE 12/17/18 0100 interface
--- NOTE | ~2018-12-13 | EKG ---
[place], [place] ELECTROCARDIOGRAM REPORT NAME: SRIDHAR RESTREPO UNIT #: [id number] ROOM: 531 DOCTOR: UQETA DRAFT REPORT BIRTHDATE: [birth year] [facility] Test Date: 2018-12-13 Test Time: 10:32:35 Pat Name: SRIDHAR RESTREPO Department: Room: 531 Gender: M Cook Morning: [place] : 1940 Requested By: TYLOR WYMAN Order Number: [id number] Reading MD: David Cuellar MD Measurements Intervals [place] Rate: 80 P: -53 SC: 235 QRS: 41 QRSD: 110 T: 26 QT: 422 QTc: 487 Interpretive Statements Sinus or ectopic atrial rhythm Prolonged SC interval Consider anterior infarct Borderline T abnormalities, inferior leads Baseline artifact Electronically Signed On 12-13-2018 16:26:05 PDT by David Cuellar MD CM:EKGRPT:ELECTROCARDIOGRAM REPORT [id number] TYLOR BIRCH DRAFT REPORT TYLOR WYMAN M.D.
--- NOTE | ~2018-12-13 | PR ---
[place], [place] PROGRESS NOTE NAME: SRIDHAR RESTREPO UNIT #: [id number] ROOM: 531 DOCTOR: KEN DAS MD BIRTHDATE: [birth year] DOS: 12/21/2018 REASON FOR VISIT: CHF and atrial fibrillation. SUBJECTIVE: The patient is complaining of some tiredness and short of breath. No chest pain. No PND. No orthopnea. No palpitations. No nausea, vomiting, diarrhea. Yesterday, he underwent a repeat paracentesis with no significant fluid drained. REVIEW OF SYSTEMS: Review of 10 systems negative except as mentioned above. PHYSICAL EXAMINATION: VITAL SIGNS: Blood pressure 107/44, respiratory rate was 20, pulse 71, weight 86.6 kilos. RHYTHM STRIPS: The patient is in sinus rhythm. GENERAL: Alert, comfortable, in no acute distress. NECK: Supple. No distended neck veins. No carotid bruit. CHEST: Symmetrical, nontender. LUNGS: A few scattered rhonchi. Good air entry bilaterally. HEART: Regular rhythm. No S3. Grade 1/6 systolic murmur. ABDOMEN: Distended. Bowel sounds normal. EXTREMITIES: Showed 1+ edema. Distal pulses palpable. SKIN: Warm and dry. No cyanosis. No clubbing. RECTAL: Deferred. GENITOURINARY: Deferred. NEUROLOGIC: The patient is alert with no focal neurologic deficit. MUSCULOSKELETAL: No joint tenderness or swelling. MEDICATIONS: Reviewed. LABORATORY DATA: Reviewed. Hemoglobin 6.8. Creatinine 1.69. IMPRESSION: 1. Acute on chronic diastolic heart failure. 2. Paroxysmal atrial fibrillation. 3. Ascites. 4. Severe anemia. 5. Chronic kidney disease. 6. History of cerebrovascular accident. 7. Coronary artery disease. 8. Peripheral vascular disease, status post abdominal aortic aneurysm stent graft. 9. Inferior vena cava thrombus. RECOMMENDATIONS: 1. Continue current medications. 2. Blood pressure and heart rate are stable. 3. Probably he needs some packed red blood cell transfusion. 4. Possible discharge in the next 24-48 hours. 5. No further cardiac testing. [place], [place] PROGRESS NOTE NAME: SRIDHAR RESTREPO UNIT #: [id number] ROOM: 531 DOCTOR: KEN DAS MD BIRTHDATE: [birth year] 6. No family at bedside at the time of my examination. KEN DAS MD CM:PNTRANS [id number] KEN DAS MD 12/22/18 0220 interface
--- NOTE | ~2018-12-13 | O ---
[place], [place] OPERATIVE NOTE NAME: SRIDHAR RESTREPO UNIT #: [id number] ROOM: 531 DOCTOR: RUBINA HORTON [facility] B[facility] [birth year] DOS: 12/17/2018 INDICATION: This is also a brief consultation along with the operating report. 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 He is on a heparin now and we may resume it, subsequently put on anticoagulation, subsequently reduced the dose of anticoagulation and consideration may be given Eliquis 5 mg twice a day and then after 15-30 days carried down to 2.5 mg twice a day so that will not aggravate the hemorrhagic gastritis while maintaining a decent anticoagulation and being an IVC filter reduce the risk of pulmonary emboli and if and when the situation improves and 3-[address] even up to 1 year and no further aggressive anticoagulation is needed or it can be done then hopefully will repeat the abdominal and a venous Doppler of lower extremities. If there is no further thrombus, consideration may be given retrieving the IVC filter. It is a femoral approach IVC filter in the future will need to be taken out will do with internal jugular approach and take the filter retrieval. We will follow the patient closely for that purpose only. We will continue to follow with the current physicians and the patient goes to the clinic in the hospital through the Residency Program and they will also follow the patient. DESCRIPTION OF PROCEDURE: With maximum protective barrier full prep and drape with local MAC, micro access of the right common femoral vein MicroSheath was placed both into guide was placed and documented lumbar area and angiogram was performed to identify both renal veins and the left being lower than the right and then the femoral filter was placed with the retrieval hook on the top and was centrally placed and excellent deployment and the hook is a central lumen of the inferior vena cava and documented by the angiogram after releasing the filter and then the sheath was taken out. Hemostasis well obtained with manual compression. We will restart the heparin in about an hour with 2,000 bolus. Outcome is good. The primary inferior vena cava retrievable with good location, good placement and no complications. Hemostasis well obtained. [place], [place] OPERATIVE NOTE NAME: SRIDHAR RESTREPO UNIT #: [id number] ROOM: 531 DOCTOR: RUBINA HORTON [facility] BIRTHDATE: [birth year] LAURA CESPEDES MD CM:OPRECORD:OPERATIVE NOTE [id number] LAURA CESPEDES MD [facility] 12/24/18 0739 interface
--- NOTE | ~2018-12-13 | O ---
[place], [place] OPERATIVE NOTE NAME: SRIDHAR RESTREPO UNIT #: [id number] ROOM: 531 DOCTOR: ONEL HORTON,WALT BIRTHDATE: [birth year] DOS: 12/22/2018 GASTROENDOSCOPIC REPORT HISTORY OF PRESENT ILLNESS: The patient has presented with GI bleed, status post multi-transfusion. The patient also on Xarelto. The patient appears to be very pale. His last CBC differential with H and H of 7.6 and 24, status post multi-transfusion, get a CBC tomorrow. Status post multi-transfusion and indeed last night, his H and H had dropped to 6.8 and 22. His platelets 165. His serum ammonia 97. Comprehensive metabolic panel, BUN and creatinine 33 and 1.6. Electrolyte balance, liver function test has been noticed, status post ultrasound-guided paracentesis. Known diffuse hepatic steatosis. There is a contracted gallbladder. Hepatic steatosis with nodules which is most consistent with cirrhotic liver. PROCEDURE: Today's procedure part of investigation is panendoscopy plus biopsies and therapeutics. PREMEDICATION: Propofol. SCOPE: Olympus forward-viewing gastroscope Q10 video. REPORT: After putting the patient in left lateral position and application of lubricant to the scope, the scope was introduced. Thereafter, under direct visualization, advanced through the length of esophagus. 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 Gastric pouch was entered. This was oozing blood superficially. Gastric pouch was entered and as I entered toward the antrum, a bleeding vessel at 4 cm to pyloric ring was noticed. This was washed several times and documented oozing. Therefore, a resolution clip was applied in it, complete bleeding control was achieved. Duodenal bulb, second and third part within normal, going back along in mid greater curvature, there is a Melinda form lesion, which is approximately 1.5 cm in its diameters. Multiple biopsies from which was obtained and since we were concerned about oozing and fragility of tissue. A resolution clip was applied in the area as well. Scope was withdrawn back to the distal esophagus. Three pieces of biopsies from the Barboza was obtained, ruling out dysplastic cells. Air was suctioned out. The patient was extubated, tolerated the procedure well. IMPRESSION: 1. EGD plus biopsy of distal esophagus, Barboza's esophagus, short segment. 2. Mid greater curvature was 1.5 cm lesion, status post biopsy ruling out carcinoma or dysplasia, status post resolution clip. 3. Antral vasculature bleeding, status post resolution clip and complete hemostasis therapy. PLAN AND DISCUSSION: 1. Aggressive ulcer therapy with Protonix 40 mg b.i.d., sucralfate slurry 2 grams 2 hours before meals and at bedtime. 2. Antral visible vessel, status post gastrointestinal bleed, status post [place], [place] OPERATIVE NOTE NAME: SRIDHAR RESTREPO UNIT #: [id number] ROOM: 531 DOCTOR: ONEL HORTON,WALT BIRTHDATE: [birth year] resolution clip and hemostasis therapy. Thank you very much indeed for your kind referral. WALT SYKES MD CM:OPRECORD:OPERATIVE NOTE 5 [phone] WALT SYKES MD 01/07/19 0946 interface
[~2018-12-13 09:59] MED LIST changes: -BUMETANIDE1 MG PO; -DEMADEX10 M1 PO; -LACTULOSE20 GM/30 M PO
[2018-12-13 10:00] VITALS: BP 153/36
[2018-12-13 10:35] LABS: BASO % 0.2 % (0.0-1.0); EOS # 0.1 10*3/uL (0.0-0.4); EOS % 1.2 % (1.0-4.0); HEMATOCRIT 30.7 % (42.0-52.0); HEMOGLOBIN 9.4 g/dl (14.0-18.0); LYMPH # 0.7 10*3/uL (1.3-4.4); LYMPH % 13.4 % (27.0-41.0); MEAN CELL VOLUME 95.9 fl (80.0-94.0); MEAN CORPUSCULAR HGB 29.4 pg (27.0-31.0); MEAN CORPUSCULAR HGB CONC 30.6 g/dl (33.0-37.0); MEAN PLATELET VOLUME 10.3 fl (9.6-12.3); MONO # 0.6 10*3/uL (0.1-1.0); MONO % 11.8 % (3.0-9.0); NEUT # 3.6 10*3/uL (2.3-7.9); PLATELET COUNT AUTOMATED 186 10*3/uL (130-400); RED CELL DISTRI WIDTH 17.7 % (0-14.5); WHITE BLOOD COUNT 4.9 10*3/uL (4.8-10.8)
[2018-12-13 10:52] LABS: ALBUMIN 2.6 gm/dl (3.1-4.5); ALKALINE PHOSPHATASE 166 U/L (45-117); BUN 19 mg/dl (7-24); CHLORIDE 106 mmol/L (98-107); CREATININE 1.39 mg/dL (0.70-1.30); POTASSIUM 3.7 mmol/L (3.5-5.1); SGOT/AST 40 IU/L (3-35); SGPT/ALT 26 U/L (12-78); SODIUM 143 mmol/L (136-145); TOTAL PROTEIN 6.6 gm/dL (6.4-8.2)
[2018-12-13 10:53] LABS: TROPONIN I < 0.015 ng/ml (<0.045)
[2018-12-13 10:59] LABS: BILIRUBIN NEGATIVE (NEGATIVE); BLOOD NEGATIVE (NEGATIVE); COLOR YELLOW (YELLOW); GLUCOSE NEGATIVE (NEGATIVE); KETONE NEGATIVE (NEGATIVE); LEUKO ESTERASE NEGATIVE (NEGATIVE); NITRITE NEGATIVE (NEGATIVE); UROBILINOGEN 0.2 E.U./dl (0.2-1.0)
[2018-12-13 11:10] LABS: CLARITY CLEAR (CLEAR); MUCOUS TRACE; RBC 0-2 rbc/hpf (0-2); WBC 0-2 wbc/hpf (0-5)
--- NOTE | 2018-12-13 11:16 | NUR ---
AMBULATING IN HALLWAY TO BATHROOM, TOLERATING WELL.
[2018-12-13 13:05] VITALS: BP 152/55
--- NOTE | 2018-12-13 14:02 | NUR ---
A 78, admitted to 5E, under the services of SRIDHAR Velásquez DO with a diagnosis of ANASARCA. Chief complaint is INCREASED ABDOMINAL PAIN AND LOWER LEG EDEMA. Patient arrived via ambulatory from ER. Monitor applied. Initial assessment completed. Vital signs taken and recorded. SRIDHAR VELÁSQUEZ DO notified of admission to the unit. Orders received. See assessment for past medical history, medications and allergies. Patient and/or family oriented to unit. [facility] visitation policy reviewed. Clothing/patient valuable form completed. SHAHBAZ VIZCARRA
[2018-12-13] MEDS ORDERED: DEMADEX10 M1 PO (14:09)
--- NOTE | 2018-12-13 14:09 | NUR ---
MED REC UPDATED WITH PT AT BEDSIDE VIA HOME MED LIST AND PILL BOTTLES.
--- NOTE | 2018-12-13 14:39 | NUR ---
OCCUPATIONAL THERAPY ORDER WAS RECEIVED AND SCREENING WAS COMPLETED. PATIENT REPORTED NOT NEEDING THERAPY. PATIENT WAS IN THE BATHROOM WITHOUT CANE, BUT INSISTENT UPON NO FURTHER NEEDS. DISCHARGE OCCUPATIONAL THERAPY ORDER PER PATIENT'S REQUEST. THANK YOU. LAZARO GRAVES OTR/L
--- NOTE | 2018-12-13 14:39 | NUR ---
PHYSICAL THERAPY Physical therapy screen complete. Patient reports being independent with cane, and states not needing PT services at this time. Discharge PT orders. Thank you. Mindy mSith,PT,DPT.
--- NOTE | 2018-12-13 14:49 | NUR ---
MADE AWARE OF CONSULT. SAID HE WOULD BE IN TO SEE THE PT JUANITA.
--- NOTE | 2018-12-13 15:05 | NUR ---
NOTIFIED SHANE WEINBERG THAT THE HOME MED REC IS UPDATED. SAID SHE WOULD LOOK.
[2018-12-13 16:00] VITALS: BP 151/48
--- NOTE | 2018-12-13 17:10 | NUR ---
ARRIVED ON SHIFT, INTRODUCED TO PATIENT, BEDSIDE REPORT RECIEVED, WHITEBOARD UPDATED. NO NEEDS VOICED AT THIS TIME.
[2018-12-13 20:25] VITALS: BP 152/77
[2018-12-14] VITALS: BP 120/47
--- NOTE | 2018-12-14 01:00 | NUR ---
Patient sleeping. Respirations relaxed and easy. Siderails up 2. [place] on. JADA ARRIAZA
--- NOTE | 2018-12-14 01:29 | NUR ---
24 HR chart check completed.
[2018-12-14 06:29] LABS: BASO % 0.2 % (0.0-1.0); EOS # 0.1 10*3/uL (0.0-0.4); EOS % 1.2 % (1.0-4.0); HEMATOCRIT 28.8 % (42.0-52.0); HEMOGLOBIN 8.8 g/dl (14.0-18.0); LYMPH # 0.7 10*3/uL (1.3-4.4); LYMPH % 16.3 % (27.0-41.0); MEAN CELL VOLUME 94.4 fl (80.0-94.0); MEAN CORPUSCULAR HGB 28.9 pg (27.0-31.0); MEAN CORPUSCULAR HGB CONC 30.6 g/dl (33.0-37.0); MEAN PLATELET VOLUME 10.1 fl (9.6-12.3); MONO # 0.6 10*3/uL (0.1-1.0); MONO % 13.6 % (3.0-9.0); NEUT # 2.8 10*3/uL (2.3-7.9); NEUT % 68.2 % (47.0-73.0); PLATELET COUNT AUTOMATED 170 10*3/uL (130-400); RED BLOOD COUNT 3.05 10*6/uL (4.50-5.90); RED CELL DISTRI WIDTH 17.7 % (0-14.5); WHITE BLOOD COUNT 4.1 10*3/uL (4.8-10.8)
[2018-12-14 07:02] LABS: ALBUMIN 2.5 gm/dl (3.1-4.5); ALKALINE PHOSPHATASE 152 U/L (45-117); BUN 18 mg/dl (7-24); CHLORIDE 106 mmol/L (98-107); CREATININE 1.35 mg/dL (0.70-1.30); PHOSPHOROUS 3.7 mg/dL (2.5-4.9); POTASSIUM 3.5 mmol/L (3.5-5.1); SGOT/AST 36 IU/L (3-35); SGPT/ALT 22 U/L (12-78); SODIUM 141 mmol/L (136-145); TOTAL PROTEIN 6.3 gm/dL (6.4-8.2)
[2018-12-14 08:00] VITALS: BP 156/54
--- NOTE | 2018-12-14 09:00 | NUR ---
System Consultant in to talk to patient. Patient states lives at home with his . There are 0 steps in the home. There is a wheelchair ramp. Physician: [facility] Pharmacy: [facility] for short term medications, [facility] Green for maintenance medications Home health services: [facility] previously but not currently Patient's level of ADLs: MINIMAL ASSIST Patient has working utilities: yes DME: cane, nebulizer, O2 @ 2L nc at bedtime, portable O2 tanks, O2 supplier [facility] Follow-up physician's appointment after d/c: will be made by the hospitalist nurse director upon discharge Does patient want to access PORTAL?: no Discharge plan discussed with patient. He lives at home with his . He is independent in his ADLs and uses a cane for long ambulations. Discussed home health care services and he denies any home needs at this time. When medically stable he will be discharged to home. His will transport on discharge. WARNER GALAN
[2018-12-14 09:09] LABS: ACT PARTIAL THROMBO TIME 36.7 SECONDS (20.0-32.1); INTERNATIONAL NORM RATIO 1.2 (2.0-3.5)
--- NOTE | 2018-12-14 11:26 | NUR ---
PATIENT READY FOR US PARACENTESIS. AWARE OF PROCEDURE. RESTING COMFORTABLY.
[2018-12-14 12:00] VITALS: BP 141/58
--- NOTE | 2018-12-14 15:17 | NUR ---
Discussed palliative care with patient and who is at the bedside. Both are uninterested in palliative care at this time. Notified Jazmin at [facility].
--- NOTE | 2018-12-14 15:38 | NUR ---
PHYSICAL THERAPY Phyiscal therapy evaluation offered. Patient refusing PT services at this time, stating, "I'm not interested." Discharge PT orders. Thank you. Mindy Smith,PT,DPT.
[2018-12-14 16:00] VITALS: BP 129/49
--- NOTE | 2018-12-14 16:25 | NUR ---
PATIENT RETURNED FROM US PARACENTESIS REPORTED FEELING MUCH BETTER. EDEMA HAS VISIBLY REDUCED FROM AM +3 TO +1. PT STATED 3 LITERS OF FLUID REMOVED.
--- NOTE | 2018-12-14 16:39 | NUR ---
Occupational Therapy evaluation offered but patient declined stating that he did not need any therapy. Discharge OT order. Thank you. Asia Garcia OTR
[2018-12-14 20:00] VITALS: BP 145/47
[2018-12-15] VITALS: BP 104/43
[2018-12-15 06:38] LABS: BASO % 0.3 % (0.0-1.0); EOS # 0.1 10*3/uL (0.0-0.4); EOS % 1.4 % (1.0-4.0); HEMATOCRIT 27.2 % (42.0-52.0); HEMOGLOBIN 8.2 g/dl (14.0-18.0); LYMPH # 0.5 10*3/uL (1.3-4.4); LYMPH % 14.3 % (27.0-41.0); MEAN CELL VOLUME 94.4 fl (80.0-94.0); MEAN CORPUSCULAR HGB 28.5 pg (27.0-31.0); MEAN CORPUSCULAR HGB CONC 30.1 g/dl (33.0-37.0); MEAN PLATELET VOLUME 10.2 fl (9.6-12.3); MONO # 0.5 10*3/uL (0.1-1.0); MONO % 14.8 % (3.0-9.0); NEUT # 2.5 10*3/uL (2.3-7.9); NEUT % 68.9 % (47.0-73.0); PLATELET COUNT AUTOMATED 167 10*3/uL (130-400); RED BLOOD COUNT 2.88 10*6/uL (4.50-5.90); RED CELL DISTRI WIDTH 17.6 % (0-14.5); WHITE BLOOD COUNT 3.6 10*3/uL (4.8-10.8)
[2018-12-15 07:06] LABS: ALBUMIN 2.4 gm/dl (3.1-4.5); BUN 20 mg/dl (7-24); CHLORIDE 105 mmol/L (98-107); CREATININE 1.37 mg/dL (0.70-1.30); PHOSPHOROUS 3.9 mg/dL (2.5-4.9); POTASSIUM 3.1 mmol/L (3.5-5.1); SODIUM 140 mmol/L (136-145)
[2018-12-15 12:00] VITALS: BP 100/50
[2018-12-15 16:00] VITALS: BP 127/48
[2018-12-15 20:00] VITALS: BP 115/54
[2018-12-16] VITALS: BP 121/45
[2018-12-16 06:47] LABS: BASO % 0.6 % (0.0-1.0); EOS # 0.1 10*3/uL (0.0-0.4); EOS % 1.7 % (1.0-4.0); HEMATOCRIT 26.4 % (42.0-52.0); LYMPH # 0.6 10*3/uL (1.3-4.4); LYMPH % 16.5 % (27.0-41.0); MEAN CORPUSCULAR HGB 29.1 pg (27.0-31.0); MEAN CORPUSCULAR HGB CONC 30.3 g/dl (33.0-37.0); MEAN PLATELET VOLUME 10.4 fl (9.6-12.3); MONO # 0.5 10*3/uL (0.1-1.0); MONO % 13.3 % (3.0-9.0); NEUT # 2.3 10*3/uL (2.3-7.9); NEUT % 67.3 % (47.0-73.0); PLATELET COUNT AUTOMATED 159 10*3/uL (130-400); RED BLOOD COUNT 2.75 10*6/uL (4.50-5.90); RED CELL DISTRI WIDTH 17.7 % (0-14.5); WHITE BLOOD COUNT 3.5 10*3/uL (4.8-10.8)
[2018-12-16 06:56] LABS: ALBUMIN 2.3 gm/dl (3.1-4.5); CREATININE 1.57 mg/dL (0.70-1.30); PHOSPHOROUS 2.9 mg/dL (2.5-4.9); POTASSIUM 3.8 mmol/L (3.5-5.1)
[2018-12-16 08:00] VITALS: BP 110/52
--- NOTE | 2018-12-16 09:00 | NUR ---
Manager Building in to see patient. He is sitting on the edge of his bed without distress noted. No new needs or request at this time. He denies any home needs. When medically stable he will be discharged to home.
[2018-12-16 11:22] LABS: FREE T4 1.05 ng/dl (0.76-1.46)
[2018-12-16 11:27] LABS: THYROID STIM HORMONE (HS) 28.4 uIU/ml (0.358-4.75)
[2018-12-16 12:00] VITALS: BP 142/50
[2018-12-16 16:00] VITALS: BP 131/42
--- NOTE | 2018-12-16 16:00 | NUR ---
DR SYKES AWARE OF NEW CONSULT.
--- NOTE | 2018-12-16 17:04 | NUR ---
RECEIVED CALL FROM [facility] EMERGENCY DEPARTMENT RADIOLOGY- CRITICAL REPORT RECEIVED- THROMBUS FOUND WITHIN IVC.
--- NOTE | 2018-12-16 17:08 | NUR ---
CRITICAL RESULTS FOR US ABDOMEN CALLED TO DR DEJESUS. WAITING FOR NEW ORDERS.
[2018-12-16 20:00] VITALS: BP 150/55
[2018-12-17] VITALS (9 sets, daily range): BP systolic 100–156; BP diastolic 40–64
[2018-12-17 08:56] LABS: BASO % 0.2 % (0.0-1.0); EOS # 0.1 10*3/uL (0.0-0.4); EOS % 1.5 % (1.0-4.0); HEMATOCRIT 28.8 % (42.0-52.0); HEMOGLOBIN 8.5 g/dl (14.0-18.0); LYMPH # 0.8 10*3/uL (1.3-4.4); LYMPH % 19.2 % (27.0-41.0); MEAN CELL VOLUME 97.3 fl (80.0-94.0); MEAN CORPUSCULAR HGB 28.7 pg (27.0-31.0); MEAN CORPUSCULAR HGB CONC 29.5 g/dl (33.0-37.0); MEAN PLATELET VOLUME 9.9 fl (9.6-12.3); MONO # 0.5 10*3/uL (0.1-1.0); MONO % 12.4 % (3.0-9.0); NEUT # 2.7 10*3/uL (2.3-7.9); NEUT % 66.2 % (47.0-73.0); PLATELET COUNT AUTOMATED 172 10*3/uL (130-400); RED BLOOD COUNT 2.96 10*6/uL (4.50-5.90); RED CELL DISTRI WIDTH 18.2 % (0-14.5)
[2018-12-17 09:14] LABS: CREATININE 1.57 mg/dL (0.70-1.30); POTASSIUM 4.1 mmol/L (3.5-5.1)
[2018-12-17 09:34] LABS: INTERNATIONAL NORM RATIO 1.2 (2.0-3.5)
--- NOTE | 2018-12-17 10:40 | NUR ---
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 Noted on chart. Allergy precautions put into place. Appetite is good for meals, eating 100%. No other nutrition intervention needed at this time. Nasima Toure Rdn Ld
[2018-12-18] VITALS: BP 140/58
--- NOTE | 2018-12-18 00:58 | NUR ---
PATIENTS APTT 48.8. NO CHANGE INITIATED PER PROTOCOL. INFUSION MAINTAINED PER ORDER. DAILY APTT ORDERED FOR 529
[2018-12-18 06:01] LABS: ALBUMIN 2.4 gm/dl (3.1-4.5); CREATININE 1.57 mg/dL (0.70-1.30); PHOSPHOROUS 3.6 mg/dL (2.5-4.9)
[2018-12-18 06:04] LABS: BASO % 0.2 % (0.0-1.0); EOS # 0.1 10*3/uL (0.0-0.4); EOS % 1.7 % (1.0-4.0); HEMATOCRIT 25.4 % (42.0-52.0); HEMOGLOBIN 7.7 g/dl (14.0-18.0); LYMPH # 0.7 10*3/uL (1.3-4.4); LYMPH % 16.1 % (27.0-41.0); MEAN CELL VOLUME 95.8 fl (80.0-94.0); MEAN CORPUSCULAR HGB 29.1 pg (27.0-31.0); MEAN CORPUSCULAR HGB CONC 30.3 g/dl (33.0-37.0); MEAN PLATELET VOLUME 10.5 fl (9.6-12.3); MONO # 0.5 10*3/uL (0.1-1.0); MONO % 11.9 % (3.0-9.0); NEUT # 2.8 10*3/uL (2.3-7.9); NEUT % 69.9 % (47.0-73.0); PLATELET COUNT AUTOMATED 157 10*3/uL (130-400); RED BLOOD COUNT 2.65 10*6/uL (4.50-5.90); RED CELL DISTRI WIDTH 18.2 % (0-14.5)
--- NOTE | 2018-12-18 07:31 | NUR ---
DR KELLEY NOTIFIED OF AMMONIA LEVEL AND H&H. NO NEW ORDERS.
[2018-12-18 08:00] VITALS: BP 115/42
--- NOTE | 2018-12-18 08:12 | NUR ---
APTT CRITICAL, STOPPED HEPARIN PER PROTOCOL AND NOTIFIED DR KELLEY.
[2018-12-18 10:17] LABS: BASO % 0.3 % (0.0-1.0); EOS # 0.1 10*3/uL (0.0-0.4); EOS % 1.3 % (1.0-4.0); HEMATOCRIT 27.5 % (42.0-52.0); HEMOGLOBIN 8.2 g/dl (14.0-18.0); LYMPH # 0.6 10*3/uL (1.3-4.4); LYMPH % 14.6 % (27.0-41.0); MEAN CELL VOLUME 97.9 fl (80.0-94.0); MEAN CORPUSCULAR HGB 29.2 pg (27.0-31.0); MEAN CORPUSCULAR HGB CONC 29.8 g/dl (33.0-37.0); MEAN PLATELET VOLUME 10.3 fl (9.6-12.3); MONO # 0.4 10*3/uL (0.1-1.0); MONO % 11.1 % (3.0-9.0); NEUT # 2.9 10*3/uL (2.3-7.9); NEUT % 72.4 % (47.0-73.0); PLATELET COUNT AUTOMATED 177 10*3/uL (130-400); RED BLOOD COUNT 2.81 10*6/uL (4.50-5.90); RED CELL DISTRI WIDTH 18.1 % (0-14.5)
[2018-12-18 12:00] VITALS: BP 110/46
[2018-12-18 16:00] VITALS: BP 119/45
--- NOTE | 2018-12-18 19:15 | NUR ---
ARRIVED ON SHIFT, INTRODUCED TO PATIENT, BEDSIDE REPORT RECEIVED, WHITEBOARD UPDATED, NO NEEDS VOICED AT THIS TIME.
[2018-12-19] VITALS: BP 108/48
--- NOTE | 2018-12-19 04:23 | NUR ---
24 HR chart check completed.
--- NOTE | 2018-12-19 04:24 | NUR ---
Patient sleeping. Respirations relaxed and easy. Siderails up 2. [place] on. JADA ARRIAZA
[2018-12-19 06:33] LABS: BASO % 0.3 % (0.0-1.0); EOS # 0.1 10*3/uL (0.0-0.4); EOS % 1.5 % (1.0-4.0); HEMATOCRIT 26.2 % (42.0-52.0); HEMOGLOBIN 7.7 g/dl (14.0-18.0); LYMPH # 0.7 10*3/uL (1.3-4.4); LYMPH % 18.8 % (27.0-41.0); MEAN CELL VOLUME 98.1 fl (80.0-94.0); MEAN CORPUSCULAR HGB 28.8 pg (27.0-31.0); MEAN CORPUSCULAR HGB CONC 29.4 g/dl (33.0-37.0); MEAN PLATELET VOLUME 10.6 fl (9.6-12.3); MONO # 0.5 10*3/uL (0.1-1.0); MONO % 12.7 % (3.0-9.0); NEUT # 2.6 10*3/uL (2.3-7.9); NEUT % 66.4 % (47.0-73.0); PLATELET COUNT AUTOMATED 163 10*3/uL (130-400); RED BLOOD COUNT 2.67 10*6/uL (4.50-5.90); RED CELL DISTRI WIDTH 18.6 % (0-14.5); WHITE BLOOD COUNT 3.9 10*3/uL (4.8-10.8)
[2018-12-19 06:40] LABS: ALBUMIN 2.5 gm/dl (3.1-4.5); CREATININE 1.66 mg/dL (0.70-1.30); POTASSIUM 4.9 mmol/L (3.5-5.1); TOTAL PROTEIN 6.2 gm/dL (6.4-8.2)
--- NOTE | 2018-12-19 07:03 | NUR ---
CALL PLACED TO DR. MAJOR TO REPORT AMONIA LEVEL OF 75, NO NEW ORDERS AT THIS TIME.
[2018-12-19 08:00] VITALS: BP 118/68
[2018-12-19 12:00] VITALS: BP 111/52
[2018-12-19 16:00] VITALS: BP 123/44
--- NOTE | 2018-12-19 19:30 | NUR ---
ARRIVED ON SHIFT, INTRODUCED TO PATIENT, BEDSIDE REPORT RECEIVED, WHITE BOARD UPDATED, NO NEEDS AT THIS TIME.
--- NOTE | 2018-12-19 19:37 | NUR ---
24 HR chart check completed.
[2018-12-19 20:00] VITALS: BP 118/56
[2018-12-20] VITALS: BP 94/71
--- NOTE | 2018-12-20 04:00 | NUR ---
PATIENT UP AMBULATING IN ROOM, HE HAD GIVEN SELF A SPOMGE BATH, HE DENIES ANY CONCERNS AT THIS TIME.
[2018-12-20 06:21] LABS: BASO % 0.2 % (0.0-1.0); EOS # 0.1 10*3/uL (0.0-0.4); EOS % 1.6 % (1.0-4.0); HEMATOCRIT 23.4 % (42.0-52.0); LYMPH # 0.7 10*3/uL (1.3-4.4); LYMPH % 17.4 % (27.0-41.0); MEAN CELL VOLUME 97.5 fl (80.0-94.0); MEAN CORPUSCULAR HGB 29.2 pg (27.0-31.0); MEAN CORPUSCULAR HGB CONC 29.9 g/dl (33.0-37.0); MEAN PLATELET VOLUME 10.6 fl (9.6-12.3); MONO # 0.6 10*3/uL (0.1-1.0); MONO % 15.1 % (3.0-9.0); NEUT # 2.8 10*3/uL (2.3-7.9); NEUT % 65.2 % (47.0-73.0); PLATELET COUNT AUTOMATED 161 10*3/uL (130-400); RED CELL DISTRI WIDTH 18.6 % (0-14.5); WHITE BLOOD COUNT 4.3 10*3/uL (4.8-10.8)
[2018-12-20 06:22] LABS: ACT PARTIAL THROMBO TIME 45.6 SECONDS (20.0-32.1); INTERNATIONAL NORM RATIO 1.6 (2.0-3.5)
--- NOTE | 2018-12-20 06:37 | NUR ---
CALL PLACED TO DR. MAJOR TO ADVISE OF ELEVATED AMONOA LEVEL OF 78, NO NEW ORDERS AT THIS TIME.
[2018-12-20 06:44] LABS: ALBUMIN 2.4 gm/dl (3.1-4.5); CREATININE 1.71 mg/dL (0.70-1.30); POTASSIUM 4.3 mmol/L (3.5-5.1); TOTAL PROTEIN 6.1 gm/dL (6.4-8.2)
[2018-12-20 08:00] VITALS: BP 110/50
--- NOTE | 2018-12-20 09:00 | NUR ---
SPOKE WITH ULTRASOUND AT THIS TIME REGARDING PT'S PARACENTESIS FOR TODAY, INQUIRED IF XARELTO SHOULD BE HELD. STATES YES HOLD AM DOSE.
--- NOTE | 2018-12-20 09:00 | NUR ---
Product Development Chemist in to see patient. No new needs or request at this time. He denies any home needs. When medically stable he will be discharged to home.
[2018-12-20 12:00] VITALS: BP 116/43
--- NOTE | 2018-12-20 12:51 | NUR ---
PT OFF FLOOR FOR PARACENTESIS AT THIS TIME.
--- NOTE | 2018-12-20 13:35 | NUR ---
PT RETURNED FROM PARACENTESIS.
[2018-12-20 14:26] LABS: BODY FLUID WBC 386 /uL
[2018-12-20 14:50] LABS: BF LYMPHOCYTES 10 %; BF MACROPHAGES 72 %; BF MESOTHELIALS 5 %; BF NEUTROPHILS 13 %
--- NOTE | 2018-12-20 15:29 | NUR ---
Dr. Zeng in to speak with patient regarding his IVC filter. Patient understands and feels better. at bedside.
[2018-12-20 16:00] VITALS: BP 119/44
--- NOTE | 2018-12-20 19:30 | NUR ---
Bedside report recieved from day shift RN. PT resting in bed at this time and denies any pain or discomfort. Respirations easy and nonlabored. He denies any needs at this time. Safety measures in place, call light within reach. Will continue to monitor pt.
[2018-12-20 20:00] VITALS: BP 125/44
[2018-12-21] VITALS: BP 107/44
[2018-12-21 04:05] LABS: HEPATITIS B SURFACE AG Negative (Negative); HEPATITIS C VIRUS ANTIBODY <0.1 s/co (0.0-0.9)
--- NOTE | 2018-12-21 04:32 | NUR ---
PT RESTING IN BED. NO OBVIOUS SIGNS/SYMPTOMS OF PAIN OR DISCOMFORT. RESPIRATIONS EASY AND NONLABORED. HE IS NSR ON THE MONITOR WITH A HEART RATE IN THE 60'S AT THIS TIME. BED LOCKED AND IN THE LOWEST POSITION, CALL LIGHT WITHIN REACH. WILL CONTINUE TO MONITOR.
--- NOTE | 2018-12-21 06:02 | NUR ---
DR. PABLO NOTIFIED OF CRITICAL AMMONIA RESULT OF 97. NO NEW ORDERS RECIEVED.
[2018-12-21 06:32] LABS: ALBUMIN 2.4 gm/dl (3.1-4.5); CREATININE 1.69 mg/dL (0.70-1.30); POTASSIUM 4.1 mmol/L (3.5-5.1); TOTAL PROTEIN 5.9 gm/dL (6.4-8.2)
[2018-12-21 06:54] LABS: HEMATOCRIT 22.4 % (42.0-52.0); MEAN CELL VOLUME 98.7 fl (80.0-94.0); MEAN CORPUSCULAR HGB CONC 30.4 g/dl (33.0-37.0); MEAN PLATELET VOLUME 10.8 fl (9.6-12.3); PLATELET COUNT AUTOMATED 165 10*3/uL (130-400); RED BLOOD COUNT 2.27 10*6/uL (4.50-5.90); RED CELL DISTRI WIDTH 18.8 % (0-14.5); WHITE BLOOD COUNT 3.4 10*3/uL (4.8-10.8)
[2018-12-21 07:02] LABS: HEMOGLOBIN 6.8 g/dl (14.0-18.0)
--- NOTE | 2018-12-21 07:24 | NUR ---
DR. RIVAS NOTIFIED OF CRITICAL HEMOGLOBIN OF 6.8 NO NEW ORDERS RECIEVED
[2018-12-21 08:00] VITALS: BP 104/42
[2018-12-21 08:20] LABS: BASOPHILS 2 % (0-1); OVALOCYTES FEW; PLATELET SUFFICIENCY NORMAL (NORMAL); POLYCHROMASIA SLIGHT; SCHISTOCYTES FEW; TOTAL CELLS COUNTED 100 #CELLS
--- NOTE | 2018-12-21 09:00 | NUR ---
Certified Dialysis Technician in to see patient. No new needs or request at this time. He is sitting on the edge of his bed without distress noted. He denies any home needs. When medically stable he will be discharged to home.
--- NOTE | 2018-12-21 11:05 | NUR ---
24 HR chart check completed.
--- NOTE | 2018-12-21 11:22 | NUR ---
Informed consent obtained from patient for Blood transfussion by . Patient identified by arm band. Vital signs recorded. Blood unit number verified by 2 R.N.'s. I.V. site satisfactory. Unit 1 started at a KVO rate with Normal Saline. SHER FABIAN
[2018-12-21 12:00] VITALS: BP 112/42
--- NOTE | 2018-12-21 13:48 | NUR ---
Spoke to patient and regarding hospice at home. Hospice list given to patient and . They would like to think about it and talk to family and friends. Will follow up tomorrow.
--- NOTE | 2018-12-21 14:50 | NUR ---
UNIT 1 BLOOD TRANSFUSION COMPLETE. VSS. PT TOLERATED WELL. NO ADVERSE REACTIONS NOTED. CALL LIGHT WITHIN REACH. WILL MONITOR.
[2018-12-21 16:00] VITALS: BP 133/53
--- NOTE | 2018-12-21 19:30 | NUR ---
RESUMED CARE FOR PT AT THIS TIME. HE IS ASLEEP IN BED WITH NO OBVIOUS SIGNS/SYMPTOMS OF PAIN OR DISCOMFORT. RESPIRATIONS ARE EASY AND NONLABORED. BED LOCKED AND IN THE LOWEST POSITION, CALL LIGHT WITHIN REACH. WILL CONTINUE TO MONITOR.
[2018-12-21 20:10] VITALS: BP 112/45
[2018-12-21 21:52] VITALS: BP 112/54
[2018-12-22] VITALS (11 sets, daily range): BP systolic 79–142; BP diastolic 37–71
[2018-12-22 07:26] LABS: BASO % 0.2 % (0.0-1.0); EOS # 0.1 10*3/uL (0.0-0.4); EOS % 1.8 % (1.0-4.0); HEMATOCRIT 24.7 % (42.0-52.0); HEMOGLOBIN 7.6 g/dl (14.0-18.0); LYMPH # 0.8 10*3/uL (1.3-4.4); LYMPH % 18.2 % (27.0-41.0); MEAN CELL VOLUME 96.9 fl (80.0-94.0); MEAN CORPUSCULAR HGB 29.8 pg (27.0-31.0); MEAN CORPUSCULAR HGB CONC 30.8 g/dl (33.0-37.0); MEAN PLATELET VOLUME 10.9 fl (9.6-12.3); MONO # 0.7 10*3/uL (0.1-1.0); MONO % 15.7 % (3.0-9.0); NEUT # 2.7 10*3/uL (2.3-7.9); NEUT % 63.4 % (47.0-73.0); PLATELET COUNT AUTOMATED 157 10*3/uL (130-400); RED BLOOD COUNT 2.55 10*6/uL (4.50-5.90); RED CELL DISTRI WIDTH 19.3 % (0-14.5); WHITE BLOOD COUNT 4.3 10*3/uL (4.8-10.8)
[2018-12-22 07:48] LABS: CREATININE 1.61 mg/dL (0.70-1.30); POTASSIUM 3.9 mmol/L (3.5-5.1)
--- NOTE | 2018-12-22 08:31 | NUR ---
PT REMAINS IN SURGERY DEPT FOR EGD
--- NOTE | 2018-12-22 10:45 | NUR ---
Clinical Editor in to see patient. Discussed hospice. and patient would like a referral sent to [facility]. encyclopedia research worker and nurse notified. Patient and would like to speak to hospice nurse while he is here in the hospital. When medically stable he will be discharged to home.
--- NOTE | 2018-12-22 11:39 | NUR ---
MAINTENANCE EQUIPMENT OPERATOR spoke with Maia from [facility]. She stated Pascual would be able to meet with the patient and his spouse between 12:30-1pm today. MAINTENANCE EQUIPMENT OPERATOR informed the patient/spouse about the meeting. RNNoel is aware. MAINTENANCE EQUIPMENT OPERATOR faxed over referral. -NIRALI Banuelos
--- NOTE | 2018-12-22 12:50 | NUR ---
[facility] NURSE HERE TO SPEAK WITH PT AND HIS AT THEIR REQUEST.
--- NOTE | 2018-12-22 13:00 | NUR ---
Patient and requested CM to be present during hospice conversation with [facility], and patient asked [facility] nurse, Yu, any questions that they had regarding at home hospice care. Patient was instructed he would not be able to see his environmental consultant and seek out further treatment for his heart conditions if his hospice diagnosis is CHF per Yu. Patient uneasy about hospice care at this time as he wants to continue with all hands on treatment that he is currently getting. Discussed palliative care and patient is unsure if he wants palliative care also. He wants to write it down, think about it, and think about it again. Will follow up tomorrow about his palliative care decision to follow on discharge.
--- NOTE | 2018-12-22 19:20 | NUR ---
REPORT OBTAINED FROM MASSIMO. PATIENT IS RESTING COMFORTABLY IN BED, EYES CLSOED. NO DISSTRESS NOTED, RESP ARE ERND ON ROOM AIR. BED IS LOCEKD IN LOWEST POSITION, CALL LIGHT LEFT WITHIN REACH.
[2018-12-23] VITALS: BP 123/46
--- NOTE | 2018-12-23 00:40 | NUR ---
CALLED CHRIST IN LAB TO INFORMED THAT I NOTICED ONLY RESULTS ARE SHOWING FOR BF PROTEIN/LDH/COUNT/DIFF/ALBUMIN/AND GLUCOSE BUT NOT AMYLASE & CULTURE/GRAM STAIN FROM PARACENTESIS ON 12/20. STATED THAT ORDER IS SHOWING UNCOLLECTED ON NURSING END TO SHOW UP FOR LAB TO PROCESS. STATED SHE IS NOT SURE IF ABLE TO ADD ORDERS ON WITH SPECIMEN BEING 3 DAYS OLD AND WILL HAVE TO RECOMFIRM WITH SACHA MICRO COLOR DRUM WORKER WHEN SHE COMES IN AT 0530. NURSING COLOR DRUM WORKER PATRICA JOSEPH MADE AWARE OF SITUATION.
--- NOTE | 2018-12-23 04:00 | NUR ---
PATIENT ASLEEP, EYES CLOSED. NO DISTRESS NOTED. CALL LIGHT WITHIN REACH
--- NOTE | 2018-12-23 05:14 | NUR ---
24 HR chart check completed.
--- NOTE | 2018-12-23 05:38 | NUR ---
JIMMY FROM [place] STATED THAT IT IS TOO LATE FOR SPECIMEN TO BE USED TO OBTAIN CULTURE/GRAM STAIN AND AMYLASE FROM PARACENTESIS ON 12/20. NURSING SILK BRUSHER MADE AWARE.
--- NOTE | 2018-12-23 05:46 | NUR ---
INFORMED OF ORDERS FOR PARACENTESIS SPECIMEN WAS NOT COMPLETED FOR CULTURE/GRAM STAIN AND AMYLASE. STATED SHE WILL PASS ON TO DAYLIGHT TEAM.
[2018-12-23 06:56] LABS: BASO % 0.6 % (0.0-1.0); EOS # 0.1 10*3/uL (0.0-0.4); EOS % 1.7 % (1.0-4.0); HEMATOCRIT 24.4 % (42.0-52.0); HEMOGLOBIN 7.5 g/dl (14.0-18.0); LYMPH # 0.6 10*3/uL (1.3-4.4); LYMPH % 16.3 % (27.0-41.0); MEAN CELL VOLUME 96.4 fl (80.0-94.0); MEAN CORPUSCULAR HGB 29.6 pg (27.0-31.0); MEAN CORPUSCULAR HGB CONC 30.7 g/dl (33.0-37.0); MEAN PLATELET VOLUME 10.6 fl (9.6-12.3); MONO # 0.6 10*3/uL (0.1-1.0); MONO % 15.2 % (3.0-9.0); NEUT # 2.4 10*3/uL (2.3-7.9); NEUT % 65.9 % (47.0-73.0); PLATELET COUNT AUTOMATED 152 10*3/uL (130-400); RED BLOOD COUNT 2.53 10*6/uL (4.50-5.90); RED CELL DISTRI WIDTH 18.8 % (0-14.5); WHITE BLOOD COUNT 3.6 10*3/uL (4.8-10.8)
[2018-12-23 08:00] VITALS: BP 138/58
--- NOTE | 2018-12-23 09:00 | NUR ---
Waiter/Waitress Second Class in to see patient. He is sitting on the edge of bed without distress noted. Discussed hospice vs palliative care and he states he wants to continue to come to the hospital for treatment and continue to see all of his physicians. Discussed home health care services and he is agreeable. When provided with a list of agencies he chose [facility]. He wishes not to have OV. Discussed LTAC and he wishes not to pursue those services at this time either. He states he lives 4-5 minutes from the hospital and can be here quickly. When medically stable he will be discharged to home with home health care services.
--- NOTE | 2018-12-23 10:30 | NUR ---
Palliative care nurse, Jazmin, and CM in to see patient and discuss palliative care and hospice. Patient understands that if he was to go with hospice then he could still seek out treatment for his hospice diagnosis but would have to pay for the office visits as hospice is not going to pay for hospice and office visits. He understands he is able to revoke hospice if he wanted to pursue additional treatment. He understands that his Medicare will pay for hospice if he chooses hospice and will pay for his medical if he chooses not to go with hospice. He understands his Medicare will not go away that he will not have to reapply for it. He wishes to continue with his physicians and coming to the hospital. Jazmin spoke to patient about palliative care and he doesn't want to take that route at this time either.
[2018-12-23 12:00] VITALS: BP 115/49
--- NOTE | 2018-12-23 13:57 | NUR ---
K-PAD PROVIDED TO PT AT THIS TIME PER ORDER.
[2018-12-23 16:00] VITALS: BP 123/50
[2018-12-23 20:00] VITALS: BP 122/48
[2018-12-24] VITALS: BP 127/44
[2018-12-24 06:14] LABS: BASO % 0.5 % (0.0-1.0); EOS # 0.1 10*3/uL (0.0-0.4); EOS % 2.2 % (1.0-4.0); HEMATOCRIT 25.9 % (42.0-52.0); HEMOGLOBIN 7.9 g/dl (14.0-18.0); LYMPH # 0.7 10*3/uL (1.3-4.4); LYMPH % 18.3 % (27.0-41.0); MEAN CELL VOLUME 98.1 fl (80.0-94.0); MEAN CORPUSCULAR HGB 29.9 pg (27.0-31.0); MEAN CORPUSCULAR HGB CONC 30.5 g/dl (33.0-37.0); MEAN PLATELET VOLUME 10.4 fl (9.6-12.3); MONO # 0.5 10*3/uL (0.1-1.0); MONO % 12.9 % (3.0-9.0); NEUT # 2.4 10*3/uL (2.3-7.9); NEUT % 65.6 % (47.0-73.0); PLATELET COUNT AUTOMATED 150 10*3/uL (130-400); RED BLOOD COUNT 2.64 10*6/uL (4.50-5.90); RED CELL DISTRI WIDTH 18.8 % (0-14.5); WHITE BLOOD COUNT 3.7 10*3/uL (4.8-10.8)
--- NOTE | 2018-12-24 06:35 | NUR ---
MADE AWARE OF CRITICAL AMMONIA LEVEL OF 63. WILL MONITOR
[2018-12-24 06:37] LABS: CHLORIDE 107 mmol/L (98-107); CREATININE 1.38 mg/dL (0.70-1.30); POTASSIUM 3.7 mmol/L (3.5-5.1); SODIUM 142 mmol/L (136-145)
[2018-12-24 06:41] LABS: BUN 21 mg/dl (7-24)
[2018-12-24 08:00] VITALS: BP 122/60
--- NOTE | 2018-12-24 09:00 | NUR ---
Recording Studio Internship in to see patient. No new needs or request at this time. When medically stable he will be discharged to home with [facility] care.
[2018-12-24 12:00] VITALS: BP 107/53
--- NOTE | 2018-12-24 12:37 | NUR ---
Faxed home health care order to [facility]
--- NOTE | 2018-12-24 15:27 | NUR ---
Received call from [facility] [facility]. They are not able to take patient's insurance, . Faxed home health referral to [facility].
[2018-12-24 16:00] VITALS: BP 109/45
[2018-12-24 20:00] VITALS: BP 116/40
[2018-12-25] VITALS: BP 119/42
[2018-12-25 06:24] LABS: BASO % 0.3 % (0.0-1.0); EOS # 0.1 10*3/uL (0.0-0.4); EOS % 1.8 % (1.0-4.0); HEMATOCRIT 24.5 % (42.0-52.0); HEMOGLOBIN 7.6 g/dl (14.0-18.0); LYMPH # 0.6 10*3/uL (1.3-4.4); LYMPH % 17.3 % (27.0-41.0); MEAN CELL VOLUME 96.8 fl (80.0-94.0); MEAN PLATELET VOLUME 9.7 fl (9.6-12.3); MONO # 0.5 10*3/uL (0.1-1.0); MONO % 15.5 % (3.0-9.0); NEUT # 2.2 10*3/uL (2.3-7.9); NEUT % 64.8 % (47.0-73.0); PLATELET COUNT AUTOMATED 141 10*3/uL (130-400); RED BLOOD COUNT 2.53 10*6/uL (4.50-5.90); RED CELL DISTRI WIDTH 18.6 % (0-14.5); WHITE BLOOD COUNT 3.4 10*3/uL (4.8-10.8)
[2018-12-25 06:52] LABS: BUN 17 mg/dl (7-24); CHLORIDE 107 mmol/L (98-107); CREATININE 1.33 mg/dL (0.70-1.30); POTASSIUM 3.6 mmol/L (3.5-5.1); SODIUM 141 mmol/L (136-145)
--- NOTE | 2018-12-25 06:59 | NUR ---
DR. PABLO NOTIFIED OF CRITICAL AMMONIA LEVEL OF 59.
[2018-12-25 08:00] VITALS: BP 125/62
[2018-12-25] MEDS ORDERED: CARAFATE1 GM PO (09:59)
[2018-12-25] MEDS ORDERED: LACTULOSE20 GM/30 M PO (09:59)
[2018-12-25] MEDS ORDERED: OMEPRAZOLE40 MG PO (09:59)
[2018-12-25] MEDS ORDERED: BUMETANIDE1 MG PO (09:59)
--- NOTE | 2018-12-25 11:01 | NUR ---
DISCHARGE INSTRUCTIONS GIVEN TO PATIENT.
--- NOTE | 2018-12-25 11:30 | NUR ---
PATIENT DISCHARGED TO HOME WITH [facility]IA .
--- NOTE | 2018-12-27 07:55 | NUR ---
Received call from Jazmin at [facility] regarding acceptance of patient for home health care services. Faxed discharge instructions and discharge summary to [facility].
== END 2018-12-25 11:30 | disposition home health service (06) | DRG 423 ==
LOC: ED 09:59 → EDHOLD 12:15 → 5E 12:15
PROVIDERS: Emergency Medicine; Family Medicine; Internal Medicine; Registered Nurse; Student in an Organized Health Care Education/Training Program; ADMIT Internal Medicine
PROC: 0W9G3ZZ Drainage of Peritoneal Cavity, Percutaneous Approach (ICD-10-PCS; principal; 2018-12-14)
PROC: B51 Imaging, Veins, Fluoroscopy (ICD-10-PCS; 2018-12-17)
PROC: 06H03DZ Insertion of Intraluminal Device into Inferior Vena Cava, Percutaneous Approach (ICD-10-PCS; 2018-12-17)
PROC: 0W9G3ZX Drainage of Peritoneal Cavity, Percutaneous Approach, Diagnostic (ICD-10-PCS; 2018-12-20)
PROC: 30233N1 Transfusion of Nonautologous Red Blood Cells into Peripheral Vein, Percutaneous Approach (ICD-10-PCS; 2018-12-21)
PROC: 0DB48ZX Excision of Esophagogastric Junction, Via Natural or Artificial Opening Endoscopic, Diagnostic (ICD-10-PCS; 2018-12-22)
PROC: 0W3P8ZZ Control Bleeding in Gastrointestinal Tract, Via Natural or Artificial Opening Endoscopic (ICD-10-PCS; 2018-12-22)
PROC: 0DB68ZX Excision of Stomach, Via Natural or Artificial Opening Endoscopic, Diagnostic (ICD-10-PCS; 2018-12-22)
DX: K74.60 Unspecified cirrhosis of liver (principal); I50.33 Acute on chronic diastolic (congestive) heart failure; E43 Unspecified severe protein-calorie malnutrition; K25.0 Acute gastric ulcer with hemorrhage; I13.0 Hypertensive heart and chronic kidney disease with heart failure and stage 1 through stage 4 chronic kidney disease, or unspecified chronic kidney disease; R18.8 Other ascites; I48.1 Persistent atrial fibrillation; T82.868A Thrombosis due to vascular prosthetic devices, implants and grafts, initial encounter; K76.6 Portal hypertension; N17.9 Acute kidney failure, unspecified; N18.3 Chronic kidney disease, stage 3 (moderate); D50.9 Iron deficiency anemia, unspecified; E78.2 Mixed hyperlipidemia; K57.90 Diverticulosis of intestine, part unspecified, without perforation or abscess without bleeding; I73.9 Peripheral vascular disease, unspecified; M19.90 Unspecified osteoarthritis, unspecified site; K22.70 Barrett's esophagus without dysplasia; J44.9 Chronic obstructive pulmonary disease, unspecified; K76.0 Fatty (change of) liver, not elsewhere classified; E03.9 Hypothyroidism, unspecified; I48.0 Paroxysmal atrial fibrillation; I25.10 Atherosclerotic heart disease of native coronary artery without angina pectoris; K21.9 Gastro-esophageal reflux disease without esophagitis; Y83.1 Surgical operation with implant of artificial internal device as the cause of abnormal reaction of the patient, or of later complication, without mention of misadventure at the time of the procedure; K71.9 Toxic liver disease, unspecified; T50.995A Adverse effect of other drugs, medicaments and biological substances, initial encounter; Z88.8 Allergy status to other drugs, medicaments and biological substances; Z91.09 Other allergy status, other than to drugs and biological substances; Z91.018 Allergy to other foods; Z86.010 Personal history of colon polyps; Z86.73 Personal history of transient ischemic attack (TIA), and cerebral infarction without residual deficits; Z90.49 Acquired absence of other specified parts of digestive tract; Z95.5 Presence of coronary angioplasty implant and graft; Z98.49 Cataract extraction status, unspecified eye; Z85.828 Personal history of other malignant neoplasm of skin; Z87.891 Personal history of nicotine dependence; Z82.49 Family history of ischemic heart disease and other diseases of the circulatory system; Z80.6 Family history of leukemia; Z82.3 Family history of stroke; Z80.8 Family history of malignant neoplasm of other organs or systems; Z79.899 Other long term (current) drug therapy; Y92.89 Other specified places as the place of occurrence of the external cause; Z68.29 Body mass index [BMI] 29.0-29.9, adult

== ENCOUNTER → 2018-12-31 | Outpatient (CLI) | payer MEDICARE, OTHER ==
[~2018-12-31] MED LIST changes: +BUMETANIDE1 MG PO; +DEMADEX10 M1 PO; +LACTULOSE20 GM/30 M PO
[2018-12-31 11:00] LABS: BASO % 0.2 % (0.0-1.0); EOS # 0.1 10*3/uL (0.0-0.4); EOS % 1.5 % (1.0-4.0); HEMATOCRIT 26.3 % (42.0-52.0); HEMOGLOBIN 8.1 g/dl (14.0-18.0); LYMPH # 0.7 10*3/uL (1.3-4.4); LYMPH % 14.5 % (27.0-41.0); MEAN CELL VOLUME 99.2 fl (80.0-94.0); MEAN CORPUSCULAR HGB 30.6 pg (27.0-31.0); MEAN CORPUSCULAR HGB CONC 30.8 g/dl (33.0-37.0); MEAN PLATELET VOLUME 9.9 fl (9.6-12.3); MONO # 0.6 10*3/uL (0.1-1.0); MONO % 13.2 % (3.0-9.0); NEUT # 3.3 10*3/uL (2.3-7.9); NEUT % 70.4 % (47.0-73.0); PLATELET COUNT AUTOMATED 142 10*3/uL (130-400); RED BLOOD COUNT 2.65 10*6/uL (4.50-5.90); RED CELL DISTRI WIDTH 18.1 % (0-14.5); WHITE BLOOD COUNT 4.6 10*3/uL (4.8-10.8)
== END | disposition home or self-care (01) ==
LOC: RESCLI 01:14
PROVIDERS: Student in an Organized Health Care Education/Training Program
DX: D64.9 Anemia, unspecified (principal); K74.60 Unspecified cirrhosis of liver; R18.8 Other ascites; J44.9 Chronic obstructive pulmonary disease, unspecified; J45.909 Unspecified asthma, uncomplicated; I11.0 Hypertensive heart disease with heart failure; I50.9 Heart failure, unspecified; K21.9 Gastro-esophageal reflux disease without esophagitis; Z79.899 Other long term (current) drug therapy

== ENCOUNTER → 2019-01-05 | Outpatient (CLI) | payer MEDICARE, OTHER | END | disposition home or self-care (01) | LOC: US 11:14 | DX: K74.60 Unspecified cirrhosis of liver (principal); R18.8 Other ascites ==

== ENCOUNTER → 2019-01-07 | Day surgery (SDC) | payer MEDICARE, OTHER | END | disposition home or self-care (01) | DX: R18.8 Other ascites (principal); K74.60 Unspecified cirrhosis of liver ==

== ENCOUNTER → 2019-01-14 | Day surgery (SDC) | payer MEDICARE, OTHER | END | disposition home or self-care (01) | DX: R18.8 Other ascites (principal); K74.60 Unspecified cirrhosis of liver ==

== ENCOUNTER → 2019-01-21 | Day surgery (SDC) | payer MEDICARE, OTHER ==
[2019-01-21 11:20] LABS: BASO % 0.2 % (0.0-1.0); EOS # 0.1 10*3/uL (0.0-0.4); EOS % 1.2 % (1.0-4.0); HEMATOCRIT 26.8 % (42.0-52.0); HEMOGLOBIN 8.1 g/dl (14.0-18.0); LYMPH # 0.7 10*3/uL (1.3-4.4); MEAN CELL VOLUME 96.4 fl (80.0-94.0); MEAN CORPUSCULAR HGB 29.1 pg (27.0-31.0); MEAN CORPUSCULAR HGB CONC 30.2 g/dl (33.0-37.0); MEAN PLATELET VOLUME 9.5 fl (9.6-12.3); MONO # 0.5 10*3/uL (0.1-1.0); MONO % 13.3 % (3.0-9.0); NEUT # 2.8 10*3/uL (2.3-7.9); NEUT % 69.1 % (47.0-73.0); PLATELET COUNT AUTOMATED 150 10*3/uL (130-400); RED BLOOD COUNT 2.78 10*6/uL (4.50-5.90); RED CELL DISTRI WIDTH 16.2 % (0-14.5); WHITE BLOOD COUNT 4.1 10*3/uL (4.8-10.8)
[2019-01-21 11:32] LABS: ACT PARTIAL THROMBO TIME 31.6 SECONDS (20.0-32.1); INTERNATIONAL NORM RATIO 1.1 (2.0-3.5)
== END | disposition home or self-care (01) ==
PROVIDERS: Student in an Organized Health Care Education/Training Program
DX: R18.8 Other ascites (principal); K74.60 Unspecified cirrhosis of liver; D64.9 Anemia, unspecified; J44.9 Chronic obstructive pulmonary disease, unspecified; K21.9 Gastro-esophageal reflux disease without esophagitis; I25.10 Atherosclerotic heart disease of native coronary artery without angina pectoris; Z79.899 Other long term (current) drug therapy; Z79.84 Long term (current) use of oral hypoglycemic drugs

== ENCOUNTER → 2019-01-27 | Day surgery (SDC) | payer MEDICARE, OTHER | END | disposition home or self-care (01) | DX: R18.8 Other ascites (principal); K74.60 Unspecified cirrhosis of liver; L30.9 Dermatitis, unspecified; J44.9 Chronic obstructive pulmonary disease, unspecified; E03.9 Hypothyroidism, unspecified; D50.9 Iron deficiency anemia, unspecified; J30.2 Other seasonal allergic rhinitis; I50.33 Acute on chronic diastolic (congestive) heart failure; I11.0 Hypertensive heart disease with heart failure; I25.10 Atherosclerotic heart disease of native coronary artery without angina pectoris; Z79.899 Other long term (current) drug therapy ==

== ENCOUNTER → 2019-02-02 | Day surgery (SDC) | payer MEDICARE, OTHER ==
[~2019-02-02] VITALS: Ht 180.3 cm; Wt 88.5 kg
[2019-02-02 08:34] VITALS: BP 151/62
[2019-02-02 08:49] VITALS: BP 124/63
[2019-02-02 09:04] VITALS: BP 110/52
[2019-02-02 09:18] VITALS: BP 108/57
== END | disposition home or self-care (01) ==
LOC: SDC 01-31 09:30
DX: D64.9 Anemia, unspecified (principal); D12.2 Benign neoplasm of ascending colon; K29.50 Unspecified chronic gastritis without bleeding; K57.30 Diverticulosis of large intestine without perforation or abscess without bleeding; K44.9 Diaphragmatic hernia without obstruction or gangrene; I13.0 Hypertensive heart and chronic kidney disease with heart failure and stage 1 through stage 4 chronic kidney disease, or unspecified chronic kidney disease; N18.9 Chronic kidney disease, unspecified; I50.9 Heart failure, unspecified; K21.9 Gastro-esophageal reflux disease without esophagitis; J44.9 Chronic obstructive pulmonary disease, unspecified; Z98.890 Other specified postprocedural states; Z86.010 Personal history of colon polyps; Z79.899 Other long term (current) drug therapy; Z82.3 Family history of stroke; Z82.49 Family history of ischemic heart disease and other diseases of the circulatory system; Z80.9 Family history of malignant neoplasm, unspecified

== ENCOUNTER → 2019-02-03 | Day surgery (SDC) | payer MEDICARE, OTHER | END | disposition home or self-care (01) | DX: R18.8 Other ascites (principal) ==

== ENCOUNTER → 2019-02-10 | Day surgery (SDC) | payer MEDICARE, OTHER | END | disposition home or self-care (01) | DX: R18.8 Other ascites (principal); K74.60 Unspecified cirrhosis of liver ==

== ENCOUNTER → 2019-02-15 | Outpatient (CLI) | payer MEDICARE, OTHER | END | disposition home or self-care (01) | LOC: RESCLI 00:44 | DX: K74.60 Unspecified cirrhosis of liver (principal); R18.8 Other ascites; J44.9 Chronic obstructive pulmonary disease, unspecified; I13.0 Hypertensive heart and chronic kidney disease with heart failure and stage 1 through stage 4 chronic kidney disease, or unspecified chronic kidney disease; D63.1 Anemia in chronic kidney disease; N18.3 Chronic kidney disease, stage 3 (moderate); I50.9 Heart failure, unspecified; L30.9 Dermatitis, unspecified; K21.9 Gastro-esophageal reflux disease without esophagitis; J30.2 Other seasonal allergic rhinitis; Z79.899 Other long term (current) drug therapy; Z87.891 Personal history of nicotine dependence ==

== ENCOUNTER → 2019-02-17 | Day surgery (SDC) | payer MEDICARE, OTHER | END | disposition home or self-care (01) | DX: R18.8 Other ascites (principal); K74.60 Unspecified cirrhosis of liver ==

== ENCOUNTER → 2019-02-25 | Day surgery (SDC) | payer MEDICARE, OTHER ==
[2019-02-25 10:25] LABS: BASO % 0.4 % (0.0-1.0); EOS # 0.1 10*3/uL (0.0-0.4); HEMOGLOBIN 7.8 g/dl (14.0-18.0); LYMPH # 0.8 10*3/uL (1.3-4.4); LYMPH % 15.5 % (27.0-41.0); MEAN CELL VOLUME 90.3 fl (80.0-94.0); MEAN CORPUSCULAR HGB 27.1 pg (27.0-31.0); MEAN PLATELET VOLUME 9.2 fl (9.6-12.3); MONO # 0.6 10*3/uL (0.1-1.0); MONO % 12.9 % (3.0-9.0); NEUT # 3.4 10*3/uL (2.3-7.9); NEUT % 69.8 % (47.0-73.0); PLATELET COUNT AUTOMATED 186 10*3/uL (130-400); RED BLOOD COUNT 2.88 10*6/uL (4.50-5.90); RED CELL DISTRI WIDTH 15.3 % (0-14.5); WHITE BLOOD COUNT 4.9 10*3/uL (4.8-10.8)
[2019-02-25 10:38] LABS: ACT PARTIAL THROMBO TIME 29.3 SECONDS (20.0-32.1); INTERNATIONAL NORM RATIO 1.1 (2.0-3.5)
== END | disposition home or self-care (01) ==
PROVIDERS: Student in an Organized Health Care Education/Training Program
DX: R18.8 Other ascites (principal); K74.60 Unspecified cirrhosis of liver

== ENCOUNTER → 2019-03-03 | Day surgery (SDC) | payer MEDICARE, OTHER | END | disposition home or self-care (01) | DX: R18.8 Other ascites (principal); K74.69 Other cirrhosis of liver ==

== ENCOUNTER → 2019-03-10 | Day surgery (SDC) | payer MEDICARE, OTHER | END | disposition home or self-care (01) | DX: R18.8 Other ascites (principal); K74.60 Unspecified cirrhosis of liver; J44.9 Chronic obstructive pulmonary disease, unspecified; I13.0 Hypertensive heart and chronic kidney disease with heart failure and stage 1 through stage 4 chronic kidney disease, or unspecified chronic kidney disease; N18.3 Chronic kidney disease, stage 3 (moderate); I50.9 Heart failure, unspecified; L30.9 Dermatitis, unspecified; K21.9 Gastro-esophageal reflux disease without esophagitis; D63.1 Anemia in chronic kidney disease; Z88.8 Allergy status to other drugs, medicaments and biological substances; Z79.899 Other long term (current) drug therapy ==

== ENCOUNTER → 2019-03-18 | Day surgery (SDC) | payer MEDICARE, OTHER | END | disposition home or self-care (01) | DX: R18.8 Other ascites (principal); J44.9 Chronic obstructive pulmonary disease, unspecified; I13.0 Hypertensive heart and chronic kidney disease with heart failure and stage 1 through stage 4 chronic kidney disease, or unspecified chronic kidney disease; N18.3 Chronic kidney disease, stage 3 (moderate); I50.9 Heart failure, unspecified; E78.5 Hyperlipidemia, unspecified; K21.9 Gastro-esophageal reflux disease without esophagitis; I25.10 Atherosclerotic heart disease of native coronary artery without angina pectoris; L30.9 Dermatitis, unspecified; J30.2 Other seasonal allergic rhinitis; D63.1 Anemia in chronic kidney disease; K74.60 Unspecified cirrhosis of liver; Z79.899 Other long term (current) drug therapy; Z79.84 Long term (current) use of oral hypoglycemic drugs; Z98.890 Other specified postprocedural states; Z87.891 Personal history of nicotine dependence; Z88.8 Allergy status to other drugs, medicaments and biological substances ==

== ENCOUNTER → 2019-03-22 | Outpatient (CLI) | payer MEDICARE, OTHER | END | disposition home or self-care (01) | LOC: RESCLI 02:51 | DX: R18.8 Other ascites (principal); K74.60 Unspecified cirrhosis of liver; J44.9 Chronic obstructive pulmonary disease, unspecified; I13.0 Hypertensive heart and chronic kidney disease with heart failure and stage 1 through stage 4 chronic kidney disease, or unspecified chronic kidney disease; D63.1 Anemia in chronic kidney disease; K21.9 Gastro-esophageal reflux disease without esophagitis; I50.9 Heart failure, unspecified; N18.3 Chronic kidney disease, stage 3 (moderate); J30.2 Other seasonal allergic rhinitis; H40.9 Unspecified glaucoma; L30.9 Dermatitis, unspecified; E55.9 Vitamin D deficiency, unspecified; Z79.899 Other long term (current) drug therapy; Z87.891 Personal history of nicotine dependence ==

== ENCOUNTER → 2019-03-25 | Day surgery (SDC) | payer MEDICARE, OTHER | END | disposition home or self-care (01) | DX: R18.8 Other ascites (principal); K74.60 Unspecified cirrhosis of liver; J44.9 Chronic obstructive pulmonary disease, unspecified; I13.0 Hypertensive heart and chronic kidney disease with heart failure and stage 1 through stage 4 chronic kidney disease, or unspecified chronic kidney disease; N18.3 Chronic kidney disease, stage 3 (moderate); I50.9 Heart failure, unspecified; H40.9 Unspecified glaucoma; E55.9 Vitamin D deficiency, unspecified; L30.9 Dermatitis, unspecified; D63.1 Anemia in chronic kidney disease; K21.9 Gastro-esophageal reflux disease without esophagitis; J30.2 Other seasonal allergic rhinitis; E78.5 Hyperlipidemia, unspecified; Z79.899 Other long term (current) drug therapy; Z98.890 Other specified postprocedural states; Z87.891 Personal history of nicotine dependence; Z88.8 Allergy status to other drugs, medicaments and biological substances ==

== ENCOUNTER → 2019-03-29 | Day surgery (SDC) | payer MEDICARE, OTHER ==
[2019-03-29 10:43] LABS: BASO % 0.2 % (0.0-1.0); EOS # 0.1 10*3/uL (0.0-0.4); EOS % 1.4 % (1.0-4.0); HEMATOCRIT 25.4 % (42.0-52.0); HEMOGLOBIN 7.5 g/dl (14.0-18.0); LYMPH # 0.6 10*3/uL (1.3-4.4); LYMPH % 14.7 % (27.0-41.0); MEAN CELL VOLUME 85.8 fl (80.0-94.0); MEAN CORPUSCULAR HGB 25.3 pg (27.0-31.0); MEAN CORPUSCULAR HGB CONC 29.5 g/dl (33.0-37.0); MEAN PLATELET VOLUME 9.7 fl (9.6-12.3); MONO # 0.5 10*3/uL (0.1-1.0); MONO % 11.3 % (3.0-9.0); NEUT # 3.1 10*3/uL (2.3-7.9); NEUT % 72.2 % (47.0-73.0); PLATELET COUNT AUTOMATED 176 10*3/uL (130-400); RED BLOOD COUNT 2.96 10*6/uL (4.50-5.90); RED CELL DISTRI WIDTH 15.6 % (0-14.5); WHITE BLOOD COUNT 4.4 10*3/uL (4.8-10.8)
[2019-03-29 10:50] LABS: ACT PARTIAL THROMBO TIME 29.6 SECONDS (20.0-32.1); INTERNATIONAL NORM RATIO 1.1 (2.0-3.5)
== END | disposition home or self-care (01) ==
PROVIDERS: Internal Medicine Nephrology
DX: R18.8 Other ascites (principal); K74.60 Unspecified cirrhosis of liver

== ENCOUNTER → 2019-04-06 | Day surgery (SDC) | payer MEDICARE, OTHER | END | disposition home or self-care (01) | DX: R18.8 Other ascites (principal); K74.60 Unspecified cirrhosis of liver ==

== ENCOUNTER → 2019-04-14 | Day surgery (SDC) | payer MEDICARE, OTHER | END | disposition home or self-care (01) | DX: R18.8 Other ascites (principal); K74.60 Unspecified cirrhosis of liver ==

== ENCOUNTER → 2019-04-25 | Day surgery (SDC) | payer MEDICARE, OTHER | END | disposition home or self-care (01) | DX: R18.8 Other ascites (principal); K74.60 Unspecified cirrhosis of liver ==

== ENCOUNTER → 2019-05-05 | Day surgery (SDC) | payer MEDICARE, OTHER ==
[2019-05-05 10:45] LABS: BASO % 0.7 % (0.0-1.0); EOS # 0.1 10*3/uL (0.0-0.4); EOS % 1.8 % (1.0-4.0); HEMATOCRIT 24.5 % (42.0-52.0); HEMOGLOBIN 7.2 g/dl (14.0-18.0); LYMPH # 0.7 10*3/uL (1.3-4.4); LYMPH % 15.8 % (27.0-41.0); MEAN CELL VOLUME 79.3 fl (80.0-94.0); MEAN CORPUSCULAR HGB 23.3 pg (27.0-31.0); MEAN CORPUSCULAR HGB CONC 29.4 g/dl (33.0-37.0); MEAN PLATELET VOLUME 9.7 fl (9.6-12.3); MONO # 0.5 10*3/uL (0.1-1.0); MONO % 11.6 % (3.0-9.0); NEUT # 3.2 10*3/uL (2.3-7.9); NEUT % 69.9 % (47.0-73.0); PLATELET COUNT AUTOMATED 194 10*3/uL (130-400); RED BLOOD COUNT 3.09 10*6/uL (4.50-5.90); RED CELL DISTRI WIDTH 16.1 % (0-14.5); WHITE BLOOD COUNT 4.5 10*3/uL (4.8-10.8)
[2019-05-05 11:11] LABS: ACT PARTIAL THROMBO TIME 27.6 SECONDS (20.0-32.1); INTERNATIONAL NORM RATIO 1.1 (2.0-3.5)
== END | disposition home or self-care (01) ==
PROVIDERS: Internal Medicine Nephrology
DX: R18.8 Other ascites (principal); K74.60 Unspecified cirrhosis of liver

== ENCOUNTER → 2019-05-12 | Day surgery (SDC) | payer MEDICARE, OTHER | END | disposition home or self-care (01) | DX: R18.8 Other ascites (principal); K74.60 Unspecified cirrhosis of liver ==

== ENCOUNTER → 2019-05-31 | Day surgery (SDC) | payer MEDICARE, OTHER ==
[~2019-05-31] MED LIST changes: +BUMETANIDE2 MG PO; +LACTULOSE10 GM/151 PO
== END | disposition home or self-care (01) ==
DX: R18.8 Other ascites (principal); K74.60 Unspecified cirrhosis of liver

== ENCOUNTER → 2019-05-31 | Outpatient (CLI) | payer MEDICARE, OTHER | END | disposition home or self-care (01) | LOC: RESCLI 01:18 | DX: I13.0 Hypertensive heart and chronic kidney disease with heart failure and stage 1 through stage 4 chronic kidney disease, or unspecified chronic kidney disease (principal); K74.60 Unspecified cirrhosis of liver; J44.9 Chronic obstructive pulmonary disease, unspecified; I50.9 Heart failure, unspecified; J30.2 Other seasonal allergic rhinitis; K21.9 Gastro-esophageal reflux disease without esophagitis; N18.3 Chronic kidney disease, stage 3 (moderate); D63.1 Anemia in chronic kidney disease; L30.9 Dermatitis, unspecified; E55.9 Vitamin D deficiency, unspecified; H40.9 Unspecified glaucoma; E03.9 Hypothyroidism, unspecified; R18.8 Other ascites; Z87.891 Personal history of nicotine dependence ==

== ENCOUNTER 2019-06-03 17:00 | Inpatient (IN) | payer MEDICARE, OTHER ==
[2019-06-03] VITALS (11 sets, daily range): BP systolic 92–132; BP diastolic 47–69
[~2019-06-03] VITALS: Ht 180.3 cm; Wt 104.8 kg
[~2019-06-03 17:00] MED LIST changes: -BUMETANIDE2 MG PO; -LACTULOSE10 GM/151 PO
[2019-06-03] MEDS ORDERED: BUMETANIDE1 MG PO (17:42)
[2019-06-03] MEDS ORDERED: BUMETANIDE2 MG PO (17:43)
[2019-06-03] MEDS ORDERED: LACTULOSE10 GM/151 PO (17:52)
--- NOTE | 2019-06-03 19:30 | NUR ---
PT RESTING IN BED. VOICES NO CONERNS AT THIS TIME. RESPS EASY AND NON LABORED. NO S/S OF DISTRESS NOTED. 2L OXYGEN VIA NASAL CANNULA INTACT. VSS. CALL LIGHT WITHIN REACH. WHITE BOARD UPDATED.
--- NOTE | 2019-06-03 22:42 | NUR ---
24 HR chart check completed.
--- NOTE | 2019-06-03 23:05 | NUR ---
PT TOLERATED BLOOD TRANSFUSION WELL. MANUAL BP 92/62. PT STATED THAT WAS KIND OF LOW FOR HIM. NOTIFIED DR DUEÑAS WHO STATED TO CONTINUE TO MONITOR IT.
[2019-06-04] VITALS (15 sets, daily range): BP systolic 90–146; BP diastolic 41–74
[2019-06-04 03:09] LABS: HEMATOCRIT 22.5 % (42.0-52.0); MEAN CELL VOLUME 77.3 fl (80.0-94.0); MEAN CORPUSCULAR HGB 22.7 pg (27.0-31.0); MEAN CORPUSCULAR HGB CONC 29.3 g/dl (33.0-37.0); MEAN PLATELET VOLUME 9.7 fl (9.6-12.3); PLATELET COUNT AUTOMATED 152 10*3/uL (130-400); RED BLOOD COUNT 2.91 10*6/uL (4.50-5.90); RED CELL DISTRI WIDTH 17.4 % (0-14.5)
[2019-06-04 03:30] LABS: HEMOGLOBIN 6.6 g/dl (14.0-18.0)
--- NOTE | 2019-06-04 03:31 | NUR ---
INFORMED DR DUEÑAS THAT PTS HGB IS 6.6. STATED HE WOULD PUT ORDERS IN
[2019-06-04 03:35] LABS: BASOPHILS 2 % (0-1); OVALOCYTES FEW; TOTAL CELLS COUNTED 100 #CELLS
[2019-06-04 03:36] LABS: BURR CELLS FEW; PLATELET SUFFICIENCY NORMAL (NORMAL)
[2019-06-04 06:20] LABS: BASO % 0.5 % (0.0-1.0); EOS # 0.1 10*3/uL (0.0-0.4); EOS % 1.5 % (1.0-4.0); HEMATOCRIT 26.2 % (42.0-52.0); HEMOGLOBIN 7.6 g/dl (14.0-18.0); LYMPH # 0.6 10*3/uL (1.3-4.4); LYMPH % 15.8 % (27.0-41.0); MEAN CELL VOLUME 76.8 fl (80.0-94.0); MEAN CORPUSCULAR HGB 22.3 pg (27.0-31.0); MEAN PLATELET VOLUME 9.4 fl (9.6-12.3); MONO # 0.5 10*3/uL (0.1-1.0); MONO % 13.1 % (3.0-9.0); NEUT # 2.8 10*3/uL (2.3-7.9); NEUT % 68.9 % (47.0-73.0); PLATELET COUNT AUTOMATED 152 10*3/uL (130-400); RED BLOOD COUNT 3.41 10*6/uL (4.50-5.90); RED CELL DISTRI WIDTH 17.7 % (0-14.5); WHITE BLOOD COUNT 4.1 10*3/uL (4.8-10.8)
--- NOTE | 2019-06-04 06:40 | NUR ---
NOTIFIED DR SYKES OF [facility]. STATED TO PUT IN ORDER FOR US PARACENTESIS
[2019-06-04 06:45] LABS: CREATININE 1.76 mg/dL (0.70-1.30); POTASSIUM 4.2 mmol/L (3.5-5.1)
[2019-06-04 06:57] LABS: PHOSPHOROUS 4.1 mg/dL (2.5-4.9); THYROID STIM HORMONE (HS) 7.19 uIU/ml (0.358-4.75); TOTAL PROTEIN 6.8 gm/dL (6.4-8.2)
[2019-06-04 08:08] LABS: VITAMIN D, 25-HYDROXY 50.4 ng/mL (30-100)
--- NOTE | 2019-06-04 09:09 | NUR ---
AWARE OF CONSULT, NNO
--- NOTE | 2019-06-04 10:41 | NUR ---
Land Commissioner in to talk to patient. Patient states lives at home with . There are 2 steps in the home. Physician: [facility] Pharmacy: [facility] health services: none Patient's level of ADLs: INDEPENDENT Patient has working utilities: all working DME: wheelchair ramp Follow-up physician's appointment after d/c: will be made by hospitalist nurse director upon discharge Does patient want to access PORTAL?: no Discharge plan discussed with patient, he states he lives at home with , he gets around fine and is independent in adls, he stated he will return home when medically stable and denies any home needs, case management will follow. JEM BAUMANN
--- NOTE | 2019-06-04 12:30 | NUR ---
1 UNIT OF PRBC'S TRANFUSED PER ORDER, PT TOLERATED WELL, NO S&S OF REACTION NOTED. VITALS STABLE,
[2019-06-04 15:30] LABS: BASO % 0.4 % (0.0-1.0); EOS # 0.1 10*3/uL (0.0-0.4); EOS % 1.3 % (1.0-4.0); HEMATOCRIT 30.4 % (42.0-52.0); LYMPH # 0.7 10*3/uL (1.3-4.4); LYMPH % 14.2 % (27.0-41.0); MEAN CELL VOLUME 78.4 fl (80.0-94.0); MEAN CORPUSCULAR HGB 23.2 pg (27.0-31.0); MEAN CORPUSCULAR HGB CONC 29.6 g/dl (33.0-37.0); MONO # 0.6 10*3/uL (0.1-1.0); MONO % 12.1 % (3.0-9.0); NEUT # 3.7 10*3/uL (2.3-7.9); NEUT % 71.8 % (47.0-73.0); PLATELET COUNT AUTOMATED 167 10*3/uL (130-400); RED BLOOD COUNT 3.88 10*6/uL (4.50-5.90); RED CELL DISTRI WIDTH 17.8 % (0-14.5); WHITE BLOOD COUNT 5.2 10*3/uL (4.8-10.8)
--- NOTE | 2019-06-04 17:28 | NUR ---
AND NOTIFIED OF FECAL OCCULT RESULTS, RECHECK CBC IN AM PER
--- NOTE | 2019-06-04 19:30 | NUR ---
PT RESTING IN BED. VOICES NO CONCERNS AT THIS TIME. RESPS EASY AND NON LABORED. VSS. WHITE BOARD UPDATED. CALL LIGHT WITHIN REACH. 2L OXYGEN VIA NASAL CANNULA INTACT.
[2019-06-05] VITALS: BP 113/58
--- NOTE | 2019-06-05 02:41 | NUR ---
Patient sleeping. Respirations relaxed and easy. Siderails up . [place] on.NO S/S OF DISTRESS NOTED. 2L OXYGEN VIA NASAL CANNULA INTACT. CALL LIGHT WITHIN REACH. HISSIGIFREDOM,MILTON
[2019-06-05 06:30] LABS: BASO % 0.2 % (0.0-1.0); EOS # 0.1 10*3/uL (0.0-0.4); EOS % 1.6 % (1.0-4.0); HEMATOCRIT 29.7 % (42.0-52.0); HEMOGLOBIN 8.6 g/dl (14.0-18.0); LYMPH # 0.7 10*3/uL (1.3-4.4); MEAN CELL VOLUME 79.4 fl (80.0-94.0); MEAN PLATELET VOLUME 10.1 fl (9.6-12.3); MONO # 0.6 10*3/uL (0.1-1.0); MONO % 11.8 % (3.0-9.0); NEUT # 3.5 10*3/uL (2.3-7.9); NEUT % 72.2 % (47.0-73.0); PLATELET COUNT AUTOMATED 160 10*3/uL (130-400); RED BLOOD COUNT 3.74 10*6/uL (4.50-5.90); RED CELL DISTRI WIDTH 18.2 % (0-14.5); WHITE BLOOD COUNT 4.9 10*3/uL (4.8-10.8)
[2019-06-05 06:46] LABS: CREATININE 1.59 mg/dL (0.70-1.30); POTASSIUM 4.1 mmol/L (3.5-5.1)
[2019-06-05 08:00] VITALS: BP 122/78
[2019-06-05 12:00] VITALS: BP 122/60
--- NOTE | 2019-06-05 12:46 | NUR ---
C/O HEADACHE, CALLED AFTER TRYING ENVIRONMENTAL CHANGES. PT STILL C/O HEADACHE AND REQUESTING MEDICATION. SAID TO GIVE MORPHINE. SEE EMAR. WILL MONITOR. CALL LIGHT WITHIN REACH. FAMILY AT BEDSIDE.
--- NOTE | 2019-06-05 13:43 | NUR ---
PRN INEFFECTIVE. ENVIRONMENTAL OFFERED. PATIENT REFUSED. CURRENTLY RECEIVING AEROSOL TREATMENT. SAFETY MAINTAINED
[2019-06-05 16:00] VITALS: BP 115/44
--- NOTE | 2019-06-05 19:28 | NUR ---
PATIENT ASSISTED TO SIT UP IN RECLINER CHAIR. PT STATES HE IS STILL HAVING HEADACHE, BUT DOES NOT WANT ANY OTHER MEDICATION. PT ONLY WANTS TO SLEEP IN DARK ROOM. WILL MONITOR. CALL LIGHT IN REACH.
[2019-06-05 20:00] VITALS: BP 118/48
[2019-06-05 22:30] VITALS: BP 131/51
[2019-06-06] VITALS (8 sets, daily range): BP systolic 93–155; BP diastolic 47–87
[2019-06-06 06:26] LABS: BASO % 0.4 % (0.0-1.0); EOS # 0.1 10*3/uL (0.0-0.4); EOS % 1.7 % (1.0-4.0); HEMATOCRIT 30.9 % (42.0-52.0); HEMOGLOBIN 9.1 g/dl (14.0-18.0); LYMPH # 0.6 10*3/uL (1.3-4.4); LYMPH % 13.6 % (27.0-41.0); MEAN CELL VOLUME 79.2 fl (80.0-94.0); MEAN CORPUSCULAR HGB 23.3 pg (27.0-31.0); MEAN CORPUSCULAR HGB CONC 29.4 g/dl (33.0-37.0); MEAN PLATELET VOLUME 9.5 fl (9.6-12.3); MONO # 0.5 10*3/uL (0.1-1.0); MONO % 11.5 % (3.0-9.0); NEUT # 3.4 10*3/uL (2.3-7.9); NEUT % 72.6 % (47.0-73.0); PLATELET COUNT AUTOMATED 156 10*3/uL (130-400); RED CELL DISTRI WIDTH 19.2 % (0-14.5); WHITE BLOOD COUNT 4.6 10*3/uL (4.8-10.8)
[2019-06-06 06:41] LABS: BUN 22 mg/dl (7-24); CHLORIDE 108 mmol/L (98-107); CREATININE 1.38 mg/dL (0.70-1.30); SODIUM 140 mmol/L (136-145)
--- NOTE | 2019-06-06 06:43 | NUR ---
CALLED. PT TO HAVE CLEAR LIQUID BREAKFAST AND NPO AFTER THAT FOR EGD THIS AFTERNOON.
--- NOTE | 2019-06-06 07:30 | NUR ---
ASSESSMENT COMPLETED AND DOCUMENTED. PT IS PLEASANT AND COOPERATIVE. SITTING IN CHAIR WATCHING TELEVISION WITH A C/O A HEADACHE THAT IS A 8/10 ON THE PAIN SCALE BUT DENIES NEED FOR PAIN MEDICATION AND PT STATES "I WOULD LIKE TO WAIT UNTIL LATER TO TAKE ANYTHING" PT UNDERSTANDS THAT HE IS NPO AFTER BREAKFAST. CALL LIGHT IS WITH IN REACH. MIHAI SPOLEGCC
--- NOTE | 2019-06-06 09:00 | NUR ---
case management visits with patient she stated he would return home when medically stable, discussed with him VNA and educated him on the services they provide, he declined, he stated he has used multiple VNA companies in the past years and has not had a good experience with any of them, he stated his helps him at home and that is all he needs, case management will follow
--- NOTE | 2019-06-06 09:31 | NUR ---
PT RESTING IN CHAIR. PILLOW GIVEN AND LEGS RAISED FOR COMFORT. PT HAS NO COMPLAINTS AT THIS TIME. BATH WAS OFFERED HOWEVER, PT STATES "I WAS CLEANED UP THIS MORNING." CALL LIGHT WITH IN MICHELLE. MIHAI SPOLEGCC
--- NOTE | 2019-06-06 10:30 | NUR ---
PT C/O GENERALIZED PAIN ALL OVER. RATES PAIN 8/10. MORPHINE GIVEN. PT TOLERATED WELL. MIHAI CASTELLANOCC
--- NOTE | 2019-06-06 11:09 | NUR ---
TO RADIOLOGY FOR PARACENTESIS VIA W/C WITH TRANSPORT. STABLE. VERBALIZES A DECREASE IN PAIN AT THIS TIME. NO S/S OF DISTRESS. NO VOICED C/O
--- NOTE | 2019-06-06 11:30 | NUR ---
ASSESSMENT COMPLETED AND DOCUMENTED. PT SITTING IN CHAIR WITH NO COMPLAINTS AT THIS TIME. MIHAI SPOLEGCC
--- NOTE | 2019-06-06 11:35 | NUR ---
RETURN TO FLOOR. NO VOICED C/O AT THIS TIME. PARACENTISIS NOT COMPLETED DUE TO MINIMAL FLUID PER PATIENT.
--- NOTE | 2019-06-06 13:08 | NUR ---
PT IS PLEASANT AND COOPERATIVE. SITTING IN CHAIR WITH VISITOR AT HIS SIDE. NO VOICED COMPLAINTS AT THIS TIME. CALL LIGHT IN REACH. MIHAI BENEDICT
--- NOTE | 2019-06-06 17:16 | NUR ---
PATIENT OFF FLOOR FOR SCHEDULED PROCEDURE.
--- NOTE | 2019-06-06 18:57 | NUR ---
PT OFF FLOOR AT THIS TIME.
--- NOTE | 2019-06-06 20:01 | NUR ---
SURGERY CALLED STATES EGD WAS NEGATIVE. PER , ANEMIA R/T RENAL FAILURE. PT CAN HAVE RENAL DIET. PT TO RETURN TO FLOOR SHORTLY.
--- NOTE | 2019-06-06 20:08 | NUR ---
PT RETURNED TO FLOOR AT THIS TIME. A&OX3. VSS. PT IN STABLE CONDITION. BOXED LUNCH PROVIDED. PATIENT ASSISTED UP INTO CHAIR. DENIES ANY FURTHER NEEDS AT THIS TIME.
[2019-06-07] VITALS: BP 104/46
[2019-06-07 07:06] LABS: BASO % 0.2 % (0.0-1.0); EOS # 0.1 10*3/uL (0.0-0.4); EOS % 1.8 % (1.0-4.0); HEMOGLOBIN 8.7 g/dl (14.0-18.0); LYMPH # 0.6 10*3/uL (1.3-4.4); MEAN CELL VOLUME 79.6 fl (80.0-94.0); MEAN CORPUSCULAR HGB 23.1 pg (27.0-31.0); MEAN PLATELET VOLUME 10.1 fl (9.6-12.3); MONO # 0.6 10*3/uL (0.1-1.0); MONO % 12.6 % (3.0-9.0); NEUT # 3.2 10*3/uL (2.3-7.9); NEUT % 72.2 % (47.0-73.0); PLATELET COUNT AUTOMATED 158 10*3/uL (130-400); RED BLOOD COUNT 3.77 10*6/uL (4.50-5.90); RED CELL DISTRI WIDTH 19.9 % (0-14.5); WHITE BLOOD COUNT 4.5 10*3/uL (4.8-10.8)
[2019-06-07 07:22] LABS: BUN 19 mg/dl (7-24); CHLORIDE 108 mmol/L (98-107); CREATININE 1.31 mg/dL (0.70-1.30); POTASSIUM 4.2 mmol/L (3.5-5.1); SODIUM 143 mmol/L (136-145)
[2019-06-07 08:00] VITALS: BP 110/54
--- NOTE | 2019-06-07 08:39 | NUR ---
Shift chart check completed.
--- NOTE | 2019-06-07 09:00 | NUR ---
case management visits with patient, he states he will return home when medically stable, discussed with him [facility] and he declines any home services at this time
--- NOTE | 2019-06-07 13:45 | NUR ---
Discharge instructions reviewed with patient/family. Patient receptive and verbalizes understanding. Follow-up care arranged. Written instructions given to patient/family. IV REMOVED, DRESSING APPLIED. TELE REMOVED. PT UNDERSTANDS DISCHARGE INSTRUCTIONS AND FOLLOW UP APPOINTMENTS. PT AND HAVE NO QUESTIONS AT THIS TIME. GARY GODINEZ
--- NOTE | 2019-06-07 14:00 | NUR ---
PT DISCHARGE VIA WHEELCHAIR
== END 2019-06-07 13:45 | disposition home or self-care (01) | DRG 378 ==
LOC: 4E 17:00
PROVIDERS: Family Medicine; Internal Medicine; ADMIT Internal Medicine
PROC: 30233N1 Transfusion of Nonautologous Red Blood Cells into Peripheral Vein, Percutaneous Approach (ICD-10-PCS; principal; 2019-06-03)
PROC: 0DB68ZX Excision of Stomach, Via Natural or Artificial Opening Endoscopic, Diagnostic (ICD-10-PCS; 2019-06-06)
DX: K29.71 Gastritis, unspecified, with bleeding (principal); I50.32 Chronic diastolic (congestive) heart failure; R18.8 Other ascites; I48.11 Longstanding persistent atrial fibrillation; I13.0 Hypertensive heart and chronic kidney disease with heart failure and stage 1 through stage 4 chronic kidney disease, or unspecified chronic kidney disease; J98.11 Atelectasis; D50.9 Iron deficiency anemia, unspecified; E87.8 Other disorders of electrolyte and fluid balance, not elsewhere classified; R73.9 Hyperglycemia, unspecified; R80.9 Proteinuria, unspecified; J44.9 Chronic obstructive pulmonary disease, unspecified; I71.4 Abdominal aortic aneurysm, without rupture; E78.5 Hyperlipidemia, unspecified; M19.90 Unspecified osteoarthritis, unspecified site; E55.9 Vitamin D deficiency, unspecified; N18.3 Chronic kidney disease, stage 3 (moderate); E03.9 Hypothyroidism, unspecified; I25.10 Atherosclerotic heart disease of native coronary artery without angina pectoris; K21.9 Gastro-esophageal reflux disease without esophagitis; K57.90 Diverticulosis of intestine, part unspecified, without perforation or abscess without bleeding; K22.719 Barrett's esophagus with dysplasia, unspecified; K74.60 Unspecified cirrhosis of liver; K25.7 Chronic gastric ulcer without hemorrhage or perforation; Z96.641 Presence of right artificial hip joint; Z86.73 Personal history of transient ischemic attack (TIA), and cerebral infarction without residual deficits; Z87.891 Personal history of nicotine dependence; Z80.6 Family history of leukemia; Z83.6 Family history of other diseases of the respiratory system; Z88.8 Allergy status to other drugs, medicaments and biological substances; Z91.018 Allergy to other foods; Z79.899 Other long term (current) drug therapy; Z95.5 Presence of coronary angioplasty implant and graft

== ENCOUNTER → 2019-06-03 | Outpatient (CLI) | payer MEDICARE, OTHER ==
[2019-06-03 15:20] LABS: MEAN CELL VOLUME 76.7 fl (80.0-94.0); MEAN CORPUSCULAR HGB 21.4 pg (27.0-31.0); MEAN CORPUSCULAR HGB CONC 27.9 g/dl (33.0-37.0); MEAN PLATELET VOLUME 9.9 fl (9.6-12.3); PLATELET COUNT AUTOMATED 189 10*3/uL (130-400); RED BLOOD COUNT 3.13 10*6/uL (4.50-5.90); RED CELL DISTRI WIDTH 17.2 % (0-14.5); WHITE BLOOD COUNT 4.9 10*3/uL (4.8-10.8)
[2019-06-03 15:24] LABS: BILIRUBIN NEGATIVE (NEGATIVE); BLOOD NEGATIVE (NEGATIVE); CLARITY CLEAR (CLEAR); COLOR YELLOW (YELLOW); GLUCOSE NEGATIVE (NEGATIVE); KETONE NEGATIVE (NEGATIVE); LEUKO ESTERASE NEGATIVE (NEGATIVE); NITRITE NEGATIVE (NEGATIVE); PH 6.5 (5.0-9.0); SPECIFIC GRAVITY 1.015 (1.005-1.030); UROBILINOGEN 0.2 E.U./dl (0.2-1.0)
[2019-06-03 15:25] LABS: BACTERIA TRACE; EPITHELIAL CELLS 0-2; WBC 0-2 wbc/hpf (0-5)
[2019-06-03 15:44] LABS: ALBUMIN 3.2 gm/dl (3.1-4.5); CREATININE 1.72 mg/dL (0.70-1.30); PHOSPHOROUS 3.3 mg/dL (2.5-4.9); POTASSIUM 4.4 mmol/L (3.5-5.1)
[2019-06-03 15:45] LABS: BASOPHILS 3 % (0-1); TOTAL CELLS COUNTED 100 #CELLS
[2019-06-03 15:46] LABS: OVALOCYTES FEW
[2019-06-03 15:48] LABS: HEMOGLOBIN 6.7 g/dl (14.0-18.0); PLATELET SUFFICIENCY NORMAL (NORMAL); POLYCHROMASIA SLIGHT
[2019-06-03 15:55] LABS: FERRITIN 30.1 ng/mL (22.0-322.0); PTH INTACT 58.5 pg/mL (18.5-88.0); VITAMIN D, 25-HYDROXY 47.3 ng/mL (30-100)
== END | disposition home or self-care (01) ==
LOC: LAB 14:30
PROVIDERS: Internal Medicine Nephrology
DX: N25.81 Secondary hyperparathyroidism of renal origin (principal); D63.1 Anemia in chronic kidney disease; N18.3 Chronic kidney disease, stage 3 (moderate)

== ENCOUNTER → 2019-06-20 | Day surgery (SDC) | payer MEDICARE, OTHER ==
[~2019-06-20] MED LIST changes: +BUMETANIDE2 MG PO; +LACTULOSE10 GM/151 PO
[2019-06-20 11:31] LABS: BASO % 0.4 % (0.0-1.0); EOS # 0.1 10*3/uL (0.0-0.4); EOS % 1.5 % (1.0-4.0); HEMATOCRIT 32.1 % (42.0-52.0); HEMOGLOBIN 9.6 g/dl (14.0-18.0); LYMPH # 0.8 10*3/uL (1.3-4.4); LYMPH % 13.9 % (27.0-41.0); MEAN CELL VOLUME 81.3 fl (80.0-94.0); MEAN CORPUSCULAR HGB 24.3 pg (27.0-31.0); MEAN CORPUSCULAR HGB CONC 29.9 g/dl (33.0-37.0); MEAN PLATELET VOLUME 9.2 fl (9.6-12.3); MONO # 0.6 10*3/uL (0.1-1.0); MONO % 10.2 % (3.0-9.0); NEUT % 73.8 % (47.0-73.0); PLATELET COUNT AUTOMATED 270 10*3/uL (130-400); RED BLOOD COUNT 3.95 10*6/uL (4.50-5.90); RED CELL DISTRI WIDTH 22.5 % (0-14.5); WHITE BLOOD COUNT 5.4 10*3/uL (4.8-10.8)
[2019-06-20 11:42] LABS: ACT PARTIAL THROMBO TIME 30.4 SECONDS (20.0-32.1); INTERNATIONAL NORM RATIO 1.1 (2.0-3.5)
== END | disposition home or self-care (01) ==
PROVIDERS: Hospitalist
DX: R18.8 Other ascites (principal); K74.60 Unspecified cirrhosis of liver

== ENCOUNTER → 2019-06-24 | Outpatient (CLI) | payer MEDICARE, OTHER | END | disposition home or self-care (01) | LOC: RESCLI 01:36 | DX: J44.9 Chronic obstructive pulmonary disease, unspecified (principal); I50.9 Heart failure, unspecified; I11.0 Hypertensive heart disease with heart failure; J30.2 Other seasonal allergic rhinitis; K74.60 Unspecified cirrhosis of liver; K21.9 Gastro-esophageal reflux disease without esophagitis; H40.9 Unspecified glaucoma; E55.9 Vitamin D deficiency, unspecified; E03.9 Hypothyroidism, unspecified; Z79.899 Other long term (current) drug therapy; Z90.89 Acquired absence of other organs; Z88.8 Allergy status to other drugs, medicaments and biological substances ==

== ENCOUNTER → 2019-06-30 | Day surgery (SDC) | payer MEDICARE, OTHER | END | disposition home or self-care (01) | DX: R18.8 Other ascites (principal) ==

== ENCOUNTER → 2019-07-05 | Day surgery (SDC) | payer MEDICARE, OTHER ==
[~2019-07-05] VITALS: Ht 180.3 cm; Wt 86.2 kg
[2019-07-05 07:30] VITALS: BP 155/42
[2019-07-05 09:10] VITALS: BP 133/53
[2019-07-05 09:25] VITALS: BP 160/55
[2019-07-05 09:40] VITALS: BP 171/65
[2019-07-05 09:57] VITALS: BP 169/75
== END | disposition home or self-care (01) ==
LOC: SDC 07-01 14:45
DX: I48.0 Paroxysmal atrial fibrillation (principal); I82.220 Acute embolism and thrombosis of inferior vena cava; I11.0 Hypertensive heart disease with heart failure; I50.32 Chronic diastolic (congestive) heart failure; J44.9 Chronic obstructive pulmonary disease, unspecified; I25.10 Atherosclerotic heart disease of native coronary artery without angina pectoris; E78.00 Pure hypercholesterolemia, unspecified; K21.9 Gastro-esophageal reflux disease without esophagitis; Z79.899 Other long term (current) drug therapy; Z95.828 Presence of other vascular implants and grafts; Z98.890 Other specified postprocedural states; Z88.8 Allergy status to other drugs, medicaments and biological substances; Z82.49 Family history of ischemic heart disease and other diseases of the circulatory system; Z82.3 Family history of stroke

== ENCOUNTER → 2019-07-07 | Outpatient (CLI) | payer MEDICARE, OTHER | END | disposition home or self-care (01) | LOC: RESCLI 00:38 | DX: I13.0 Hypertensive heart and chronic kidney disease with heart failure and stage 1 through stage 4 chronic kidney disease, or unspecified chronic kidney disease (principal); N18.3 Chronic kidney disease, stage 3 (moderate); I50.30 Unspecified diastolic (congestive) heart failure; E03.9 Hypothyroidism, unspecified; E55.9 Vitamin D deficiency, unspecified; J44.9 Chronic obstructive pulmonary disease, unspecified; K74.60 Unspecified cirrhosis of liver; J30.2 Other seasonal allergic rhinitis; D63.1 Anemia in chronic kidney disease; L30.9 Dermatitis, unspecified; H40.9 Unspecified glaucoma; R18.8 Other ascites; Z87.891 Personal history of nicotine dependence; Z79.899 Other long term (current) drug therapy ==

== ENCOUNTER → 2019-07-14 | Day surgery (SDC) | payer MEDICARE, OTHER | END | disposition home or self-care (01) | DX: R18.8 Other ascites (principal); K74.60 Unspecified cirrhosis of liver ==

== ENCOUNTER 2019-08-22 11:42 | Inpatient (IN) | payer MEDICARE, OTHER ==
[2019-08-22] VITALS (10 sets, daily range): BP systolic 113–141; BP diastolic 53–75
[~2019-08-22] VITALS: Ht 154.9 cm; Wt 87.1 kg
--- NOTE | 2019-08-22 13:02 | NUR ---
Pt states he does not have to void at this time.
[2019-08-22 13:10] LABS: BASO % 0.2 % (0.0-1.0); EOS # 0.1 10*3/uL (0.0-0.4); HEMATOCRIT 28.6 % (42.0-52.0); LYMPH # 0.8 10*3/uL (1.3-4.4); LYMPH % 13.3 % (27.0-41.0); MEAN CELL VOLUME 85.9 fl (80.0-94.0); MEAN CORPUSCULAR HGB 26.7 pg (27.0-31.0); MEAN CORPUSCULAR HGB CONC 31.1 g/dl (33.0-37.0); MEAN PLATELET VOLUME 9.4 fl (9.6-12.3); MONO # 0.7 10*3/uL (0.1-1.0); MONO % 11.8 % (3.0-9.0); NEUT # 4.4 10*3/uL (2.3-7.9); NEUT % 73.5 % (47.0-73.0); PLATELET COUNT AUTOMATED 165 10*3/uL (130-400); RED BLOOD COUNT 3.33 10*6/uL (4.50-5.90); RED CELL DISTRI WIDTH 18.3 % (0-14.5); WHITE BLOOD COUNT 5.9 10*3/uL (4.8-10.8)
[2019-08-22 13:20] LABS: ACT PARTIAL THROMBO TIME 27.1 SECONDS (20.0-32.1); INTERNATIONAL NORM RATIO 1.1 (2.0-3.5)
[2019-08-22 13:28] LABS: ALBUMIN 3.6 gm/dl (3.1-4.5); CREATININE 2.53 mg/dL (0.70-1.30); POTASSIUM 4.4 mmol/L (3.5-5.1); TOTAL PROTEIN 7.7 gm/dL (6.4-8.2)
[2019-08-22 13:31] LABS: TROPONIN I 1.32 ng/ml (<0.045)
[2019-08-22 13:49] LABS: BILIRUBIN NEGATIVE (NEGATIVE); BLOOD NEGATIVE (NEGATIVE); CLARITY SL CLOUDY (CLEAR); COLOR YELLOW (YELLOW); GLUCOSE NEGATIVE (NEGATIVE); KETONE NEGATIVE (NEGATIVE); NITRITE NEGATIVE (NEGATIVE); UROBILINOGEN 0.2 E.U./dl (0.2-1.0)
[2019-08-22 13:50] LABS: LEUKO ESTERASE NEGATIVE (NEGATIVE)
--- NOTE | 2019-08-22 13:50 | NUR ---
Dr.Payne juarez for pt to drink water at this time.
[2019-08-22 14:04] LABS: BACTERIA TRACE
--- NOTE | 2019-08-22 14:36 | NUR ---
in to see pt at this time.
--- NOTE | 2019-08-22 16:25 | NUR ---
Pt has some shortness of breath at this time and has diminshed lung sounds.Pt placed on 2 liters of oxygen at this time.
--- NOTE | 2019-08-22 17:10 | NUR ---
A 78, admitted to 4E, under the services of MARKIE Saucedo DO with a diagnosis of ACUTE HEART FAILURE . Chief complaint is CHEST PAIN . Patient arrived via stretcher from ER. Monitor applied. Initial assessment completed. Vital signs taken and recorded. MARKIE SAUCEDO DO notified of admission to the unit. Orders received. See assessment for past medical history, medications and allergies. Patient and/or family oriented to unit. [facility] visitation policy reviewed. Clothing/patient valuable form completed. ALF WEI
--- NOTE | 2019-08-22 17:28 | NUR ---
DR PERRIN AND DR CRUZ [facility] SERVICE NOTIFIED OF CONSULTS
--- NOTE | 2019-08-22 17:33 | NUR ---
SPOKE WITH DR PERRIN REGARDING CONSULT
--- NOTE | 2019-08-22 18:33 | NUR ---
MED REC UPDATED WITH PT
--- NOTE | 2019-08-22 20:05 | NUR ---
PT AWAKE IN BED. RESPIRATIONS EASY. DENIES ANY CHEST PAIN. HEPARIN GTT INFUSING. WILL MONITOR. CALL LIGHT IN REACH.
--- NOTE | 2019-08-22 20:27 | NUR ---
NOTIFIED OF ELEVATED TROPONIN 2.05, UP FROM 1.700. INSTRUCTED TO CALL CARDIOLOGY.
--- NOTE | 2019-08-22 20:28 | NUR ---
'S ANSWERING SERVICE CALLED REGARDING ELEVATED TROPONIN. CALL BACK REQUESTED.
--- NOTE | 2019-08-22 20:30 | NUR ---
NOTIFIED OF ELEVATED TROPONIN 2.050. PER , DO NOT CALL WITH ANY MORE ELEVATED TROPONINS UNLESS PT SYMPTOMATIC.
--- NOTE | 2019-08-22 21:40 | NUR ---
PATIENT MEDICATED WITH PO NORCO FOR C/O PAIN IN BL POSTERIOR SHOULDERS (R>L) RATED 8/10. WILL MONITOR EFFECTIVENESS. CALL LIGHT IN REACH.
--- NOTE | 2019-08-22 23:29 | NUR ---
HEPARIN GTT INCREASED BY 2 UNITS/KG/HR. NOW RUNNING AT 14 UNITS/KG/HR WHICH IS 12.2 ML/HR. RATE CHANGE VERIFIED BY THIS RN AND DENNY BURNS RN. APTT ORDERED FOR 6 HOURS FROM CHANGE (0530). WILL MONITOR. CALL LIGHT IN REACH.
[2019-08-23] VITALS: BP 113/51
[2019-08-23 06:09] LABS: BASO % 0.6 % (0.0-1.0); EOS # 0.1 10*3/uL (0.0-0.4); EOS % 1.6 % (1.0-4.0); HEMATOCRIT 28.1 % (42.0-52.0); LYMPH # 0.9 10*3/uL (1.3-4.4); LYMPH % 18.2 % (27.0-41.0); MEAN CELL VOLUME 85.7 fl (80.0-94.0); MEAN CORPUSCULAR HGB 26.2 pg (27.0-31.0); MEAN CORPUSCULAR HGB CONC 30.6 g/dl (33.0-37.0); MEAN PLATELET VOLUME 9.9 fl (9.6-12.3); MONO # 0.6 10*3/uL (0.1-1.0); MONO % 11.9 % (3.0-9.0); NEUT # 3.3 10*3/uL (2.3-7.9); NEUT % 67.3 % (47.0-73.0); PLATELET COUNT AUTOMATED 172 10*3/uL (130-400); RED BLOOD COUNT 3.28 10*6/uL (4.50-5.90); RED CELL DISTRI WIDTH 18.1 % (0-14.5); WHITE BLOOD COUNT 4.9 10*3/uL (4.8-10.8)
[2019-08-23 06:21] LABS: ALBUMIN 3.5 gm/dl (3.1-4.5); POTASSIUM 4.2 mmol/L (3.5-5.1)
[2019-08-23 06:29] LABS: CREATININE 2.38 mg/dL (0.70-1.30); FREE T4 1.15 ng/dl (0.76-1.46); PHOSPHOROUS 4.7 mg/dL (2.5-4.9); THYROID STIM HORMONE (HS) 3.94 uIU/ml (0.358-4.75); TOTAL PROTEIN 7.5 gm/dL (6.4-8.2)
--- NOTE | 2019-08-23 06:32 | NUR ---
APTT 46.7. CALLS FOR NO CHANGE PER HEPARIN PROTOCOL. GTT REMAINS AT 14 UNITS/KG/HR OR 12.2 ML/HR. WILL MONITOR.
[2019-08-23 08:20] VITALS: BP 120/70
--- NOTE | 2019-08-23 09:00 | NUR ---
Carriage Rider in to talk to patient. Patient states lives at home with . There are no steps in the home. [facility]ician: [facility] Home health services: none Patient's level of ADLs: INDEPENDENT Patient has working utilities: all working DME: cane, wheelchair ramp, home oxygen he uses at from [facility] Follow-up physician's appointment after d/c: will be made by hospitalist nurse director upon discharge Does patient want to access PORTAL?: no Discharge plan discussed with patient, he states he lives at home with his , he uses a cane for ambulation and is independent in adls. he drives, he has a nebulzier, cane and home oxygen at from [facility], patient stated he would be returning home when medically stable, discussed with him [facility] and educated him on the services they provide, he stated he as very familiar with [facility], had used them several times and was dissatisfied with there work every time, educated him that there are many home health companies in the area that he could use. he declined, stated they are all the same. case management will follow for any needs. JEM BAUMANN
--- NOTE | 2019-08-23 09:56 | NUR ---
AWARE OF ECHO DONE IN JULY 2019. NEW ORDER FOR LIMITED ECHO RECEIVED.
--- NOTE | 2019-08-23 11:26 | NUR ---
Occupational Therapy evaluation completed on four with full evaluation to follow. Recommend occupational therapy per plan of care and home with HH upon discharge. Thank you for this referral. Yasmin Foster OTR/L
--- NOTE | 2019-08-23 11:26 | NUR ---
PHYSICAL THERAPY Physical Therapy evaluation completed on 4E with full evaluation to follow. Low complexity PT evaluation per chart review and evaluation, [address]. Recommend physical therapy per plan of care and Home Health upon discharge. Thank you for this referral. Mindy Smith,PT,DPT
[2019-08-23 12:00] VITALS: BP 128/50
--- NOTE | 2019-08-23 12:56 | NUR ---
OFF FLOOR FOR STRESS TEST
--- NOTE | 2019-08-23 13:33 | NUR ---
INFORMED CONSENT SIGNED FOR LEXISCAN STRESS TEST WITH DR. PERRIN. RESTING EKG AFIB, HR 80, BP 120/50. PULSE OX 100% AND LUNGS CLEAR BILATERALLY. COMPLETED ONE MINUTE OF LEXISCAN PROTOCOL RECEIVING LEXISCAN 0.4MG OVER [address] CHANGES NOTED AND NO ARRHYTHMIAS. PT C/O SOB AND BEING WEAK. LAST RECOVERY HR 98, BP 98/44. WAITING NUCLEAR SCANNING IN STABLE CONDITION.
[2019-08-23 16:00] VITALS: BP 113/48
[2019-08-23 20:00] VITALS: BP 117/56
--- NOTE | 2019-08-23 22:00 | NUR ---
PO OXYCODONE ADMINISTERED PER PRN ORDER FOR C/O PAIN IN BL SHOULDERS RATED 7/10. WILL MONITOR EFFECTIVENESS. CALL LIGHT IN REACH.
[2019-08-24] VITALS: BP 102/58
--- NOTE | 2019-08-24 06:00 | NUR ---
PATIENT SITTING ON SIDE OF BED. DENIES COMPLAINTS OF PAIN OR DISCOMFORT. RESPIRATIONS REGULAR AND NON-LABORED. WILL CONTINUE TO MONITOR. CALL LIGHT IN REACH.
[2019-08-24 06:06] LABS: BASO % 0.4 % (0.0-1.0); EOS # 0.1 10*3/uL (0.0-0.4); EOS % 1.8 % (1.0-4.0); HEMATOCRIT 28.1 % (42.0-52.0); LYMPH # 0.8 10*3/uL (1.3-4.4); LYMPH % 17.3 % (27.0-41.0); MEAN CELL VOLUME 84.9 fl (80.0-94.0); MEAN CORPUSCULAR HGB 26.6 pg (27.0-31.0); MEAN CORPUSCULAR HGB CONC 31.3 g/dl (33.0-37.0); MEAN PLATELET VOLUME 9.6 fl (9.6-12.3); MONO # 0.6 10*3/uL (0.1-1.0); MONO % 12.6 % (3.0-9.0); NEUT % 67.7 % (47.0-73.0); PLATELET COUNT AUTOMATED 188 10*3/uL (130-400); RED BLOOD COUNT 3.31 10*6/uL (4.50-5.90); RED CELL DISTRI WIDTH 17.8 % (0-14.5); WHITE BLOOD COUNT 4.5 10*3/uL (4.8-10.8)
[2019-08-24 06:17] LABS: CREATININE 2.07 mg/dL (0.70-1.30); POTASSIUM 4.3 mmol/L (3.5-5.1)
[2019-08-24 06:27] LABS: ACT PARTIAL THROMBO TIME 30.1 SECONDS (20.0-32.1); INTERNATIONAL NORM RATIO 1.1 (2.0-3.5)
--- NOTE | 2019-08-24 07:30 | NUR ---
PHYSICAL THERAPY Patient seen this am 1:1 for therapy visit and was sitting up on EOB upon therapist arrival. Patient identified by name / and was very pleasant, transfering sit to stand SBA x 1. Patient ambulates without AD, 75'x 2, SBA, demonstrating slow, steady cadenc and no c/o's pain. Patient completed eyes open / closed, 10 seconds without LOB and tolerated single leg stance R side 3 seconds and unable to attempt L side due to immediate LOB. Patient returned to EOB sit with only mild fatigue and remained with call light, tray table and telephone as breakfast tray arrived. Will continue per POC as tolerated, total treatment time 17 minutes. Ramsey Bazan, CONTAINER CRANE OPERATOR
--- NOTE | 2019-08-24 09:45 | NUR ---
OT NOTE Pt was seen this A.M. 1:1 for 15 minute OT session. Upon arrival pt was supine in bed. Pt identified by name and and had complaints of B shoulder pain which pt reported "it's nothing bad, it is an everyday thing for me." Pt transferred supine to sit EOB with supervision. Sit to stand then completed from bed level with SBA followed by functional mobility to the bathroom with SBA and use of straight cane for UE support. Pt then stood sink side while completing a grooming task consisting of washing his hands, face, and hair care with SBA. Then challenged pt's static standing tolerance needed for increased I in self care tasks and functional transfers, pt was able to tolerate aprox 5 minutes at a time before sitting due to fatigue. Pt was left sitting upright on the EOB with call light in hand, tray table in place, and phone in reach. Continue with rec D/C plan to home with home health. SOLITARIO Perry/Earnest
[2019-08-24 12:00] VITALS: BP 100/53
--- NOTE | 2019-08-24 12:29 | NUR ---
DR. SHARP PHONED, SHAMIR BROWER TOOK MESSAGE. PATIENT OK FOR DC FROM HIS VIEWPOINT.
--- NOTE | 2019-08-24 14:41 | NUR ---
Discharge instructions reviewed with patient/family. Patient receptive and verbalizes understanding. Follow-up care arranged. Written instructions given to patient/family. VAISHALI MANNING
--- NOTE | 2019-08-25 08:52 | NUR ---
OCCUPATIONAL THERAPY CO-SIGN I approve of the Occupational Therapy notes written above. LAZARO GRAVES, OTR/L
--- NOTE | 2019-08-25 09:58 | NUR ---
PHYSICAL THERAPY CO-SIGN I approve of the Physical Therapy notes written above. WARNER POLANCO PT, DPT
== END 2019-08-24 15:03 | disposition home or self-care (01) | DRG 280 ==
LOC: ED 11:42 → 4E 15:40 → EDHOLD 15:40 → 4E 16:24
PROVIDERS: Emergency Medicine; Hospitalist; Internal Medicine; ADMIT Internal Medicine
DX: I21.4 Non-ST elevation (NSTEMI) myocardial infarction (principal); N17.0 Acute kidney failure with tubular necrosis; I50.23 Acute on chronic systolic (congestive) heart failure; R18.8 Other ascites; D68.9 Coagulation defect, unspecified; I13.0 Hypertensive heart and chronic kidney disease with heart failure and stage 1 through stage 4 chronic kidney disease, or unspecified chronic kidney disease; N18.4 Chronic kidney disease, stage 4 (severe); D50.9 Iron deficiency anemia, unspecified; K74.60 Unspecified cirrhosis of liver; E87.8 Other disorders of electrolyte and fluid balance, not elsewhere classified; R73.9 Hyperglycemia, unspecified; E83.41 Hypermagnesemia; J44.9 Chronic obstructive pulmonary disease, unspecified; E03.9 Hypothyroidism, unspecified; I25.10 Atherosclerotic heart disease of native coronary artery without angina pectoris; K21.9 Gastro-esophageal reflux disease without esophagitis; E78.5 Hyperlipidemia, unspecified; M19.90 Unspecified osteoarthritis, unspecified site; I48.0 Paroxysmal atrial fibrillation; K57.90 Diverticulosis of intestine, part unspecified, without perforation or abscess without bleeding; Z86.73 Personal history of transient ischemic attack (TIA), and cerebral infarction without residual deficits; Z95.5 Presence of coronary angioplasty implant and graft; Z87.891 Personal history of nicotine dependence; Z82.49 Family history of ischemic heart disease and other diseases of the circulatory system; Z80.6 Family history of leukemia; Z91.018 Allergy to other foods; Z88.8 Allergy status to other drugs, medicaments and biological substances; Z79.899 Other long term (current) drug therapy

== ENCOUNTER → 2019-09-05 | Outpatient (CLI) | payer MEDICARE, OTHER ==
[2019-09-05 10:45] VITALS: BP 126/68
== END | disposition home or self-care (01) ==
LOC: EDSTATUS 09:30
DX: K74.60 Unspecified cirrhosis of liver (principal); J44.9 Chronic obstructive pulmonary disease, unspecified; K21.9 Gastro-esophageal reflux disease without esophagitis; E78.5 Hyperlipidemia, unspecified; I25.10 Atherosclerotic heart disease of native coronary artery without angina pectoris; I11.0 Hypertensive heart disease with heart failure; I50.9 Heart failure, unspecified; M19.90 Unspecified osteoarthritis, unspecified site; Z86.73 Personal history of transient ischemic attack (TIA), and cerebral infarction without residual deficits; Z87.891 Personal history of nicotine dependence

== ENCOUNTER → 2019-09-15 | Day surgery (SDC) | payer MEDICARE, OTHER ==
[2019-09-15 10:28] LABS: BASO % 0.1 % (0.0-1.0); EOS # 0.1 10*3/uL (0.0-0.4); EOS % 1.3 % (1.0-4.0); HEMATOCRIT 27.8 % (42.0-52.0); LYMPH # 0.6 10*3/uL (1.3-4.4); LYMPH % 9.1 % (27.0-41.0); MEAN CELL VOLUME 86.1 fl (80.0-94.0); MEAN CORPUSCULAR HGB CONC 30.2 g/dl (33.0-37.0); MEAN PLATELET VOLUME 9.5 fl (9.6-12.3); MONO # 0.8 10*3/uL (0.1-1.0); MONO % 11.8 % (3.0-9.0); NEUT # 5.2 10*3/uL (2.3-7.9); NEUT % 77.6 % (47.0-73.0); PLATELET COUNT AUTOMATED 177 10*3/uL (130-400); RED BLOOD COUNT 3.23 10*6/uL (4.50-5.90); RED CELL DISTRI WIDTH 16.3 % (0-14.5); WHITE BLOOD COUNT 6.7 10*3/uL (4.8-10.8)
== END | disposition home or self-care (01) ==
LOC: SDC 06:41 → LAB 06:41
PROVIDERS: Internal Medicine
DX: R18.8 Other ascites (principal); K74.60 Unspecified cirrhosis of liver; N17.0 Acute kidney failure with tubular necrosis; J44.9 Chronic obstructive pulmonary disease, unspecified; I10 Essential (primary) hypertension; K21.9 Gastro-esophageal reflux disease without esophagitis; Z86.73 Personal history of transient ischemic attack (TIA), and cerebral infarction without residual deficits; Z82.49 Family history of ischemic heart disease and other diseases of the circulatory system; Z82.3 Family history of stroke

== ENCOUNTER → 2019-09-22 | Day surgery (SDC) | payer MEDICARE, OTHER | END | disposition home or self-care (01) | DX: R18.8 Other ascites (principal) ==

== ENCOUNTER → 2019-09-29 | Day surgery (SDC) | payer MEDICARE, OTHER | END | disposition home or self-care (01) | DX: R18.8 Other ascites (principal); K74.60 Unspecified cirrhosis of liver ==

== ENCOUNTER → 2019-10-06 | Outpatient (CLI) | payer MEDICARE, OTHER ==
[~2019-10-06] MED LIST changes: +KLOR-CON M2020 ME1 PO; +Metolazone5 MG PO
[2019-10-06 09:36] LABS: ACT PARTIAL THROMBO TIME 27.3 SECONDS (20.0-32.1); INTERNATIONAL NORM RATIO 1.1 (2.0-3.5)
[2019-10-06 11:18] VITALS: BP 112/59
== END | disposition home or self-care (01) ==
LOC: LAB 00:10 → EDSTATUS 09:30
PROVIDERS: Student in an Organized Health Care Education/Training Program
DX: R18.8 Other ascites (principal); K74.60 Unspecified cirrhosis of liver

== ENCOUNTER 2019-10-13 08:17 | Inpatient (IN) | payer MEDICARE, OTHER ==
[~2019-10-13] VITALS: Ht 180.3 cm; Wt 94.5 kg
[~2019-10-13 08:17] MED LIST changes: -KLOR-CON M2020 ME1 PO; -Metolazone5 MG PO
[2019-10-13 08:23] VITALS: BP 113/62
[2019-10-13 08:53] LABS: BASO % 0.3 % (0.0-1.0); EOS # 0.1 10*3/uL (0.0-0.4); EOS % 0.9 % (1.0-4.0); HEMATOCRIT 30.4 % (42.0-52.0); LYMPH # 0.7 10*3/uL (1.3-4.4); MEAN CELL VOLUME 83.3 fl (80.0-94.0); MEAN CORPUSCULAR HGB 25.2 pg (27.0-31.0); MEAN CORPUSCULAR HGB CONC 30.3 g/dl (33.0-37.0); MEAN PLATELET VOLUME 9.1 fl (9.6-12.3); MONO # 0.8 10*3/uL (0.1-1.0); MONO % 12.2 % (3.0-9.0); NEUT # 5.1 10*3/uL (2.3-7.9); NEUT % 76.3 % (47.0-73.0); PLATELET COUNT AUTOMATED 202 10*3/uL (130-400); RED BLOOD COUNT 3.65 10*6/uL (4.50-5.90); WHITE BLOOD COUNT 6.6 10*3/uL (4.8-10.8)
[2019-10-13 09:01] LABS: ACT PARTIAL THROMBO TIME 27.6 SECONDS (20.0-32.1); INTERNATIONAL NORM RATIO 1.1 (2.0-3.5)
[2019-10-13 09:07] LABS: ALBUMIN 2.9 gm/dl (3.1-4.5); CREATININE 2.48 mg/dL (0.70-1.30); POTASSIUM 4.7 mmol/L (3.5-5.1); TOTAL PROTEIN 7.4 gm/dL (6.4-8.2)
[2019-10-13 10:36] VITALS: BP 126/57
--- NOTE | 2019-10-13 11:00 | NUR ---
CCA 79, admitted to , under the services of LUAN Goodman DO with a diagnosis of CHF, HEART PALPITATIONS, SHORTNESS OF BREATH. Chief complaint is HEART PALPITATIONS. Patient arrived via bed from ER. Monitor applied. Initial assessment completed. Vital signs taken and recorded. LUAN GOODMAN DO notified of admission to the unit. Orders received. See assessment for past medical history, medications and allergies. Patient and/or family oriented to unit. [address] visitation policy reviewed. Clothing/patient valuable form completed. HARRY WEBB.
[2019-10-13] MEDS ORDERED: CLOPIDOGREL75 MG PO (11:08)
[2019-10-13 11:14] VITALS: BP 129/62
--- NOTE | 2019-10-13 11:55 | NUR ---
'S OFFICE NOTIFIED OF CONSULT.
--- NOTE | 2019-10-13 11:56 | NUR ---
RESIDENT CARPET INSTALLATION SPECIALIST FOR NOTIFIED OF CONSULT.
--- NOTE | 2019-10-13 11:56 | NUR ---
MED REC UPDATED PER POLICY.
--- NOTE | 2019-10-13 13:25 | NUR ---
IN TO SEE PATIENT REGARDING CONSULT.
--- NOTE | 2019-10-13 15:04 | NUR ---
PT REFUSES ADELIA DARVINE PER ORDER.
[2019-10-13 15:31] LABS: BACTERIA TRACE; BILIRUBIN NEGATIVE (NEGATIVE); BLOOD NEGATIVE (NEGATIVE); CLARITY CLEAR (CLEAR); COLOR YELLOW (YELLOW); GLUCOSE NEGATIVE (NEGATIVE); KETONE NEGATIVE (NEGATIVE); LEUKO ESTERASE NEGATIVE (NEGATIVE); NITRITE NEGATIVE (NEGATIVE); RBC 0-2 rbc/hpf (0-2); UROBILINOGEN 0.2 E.U./dl (0.2-1.0); WBC 0-2 wbc/hpf (0-5)
[2019-10-13 16:00] VITALS: BP 110/51
--- NOTE | 2019-10-13 16:26 | NUR ---
PT REFUSING TO HAVE U/S DONE AT THIS TIME. PT REQUESTS FOR U/S TO BE DONE TOMORROW.
--- NOTE | 2019-10-13 18:28 | NUR ---
THIS NURSE SPOKE WITH REGARDING PATIENT'S REQUEST. PATIENT STATED HE RECENTLY HAD U/S DONE BY AT [facility]. OKAY TO D/C ULTRASOUND ORDERED AND OBTAIN MEDICAL RECORDS.
[2019-10-13 20:00] VITALS: BP 108/57
--- NOTE | 2019-10-13 21:13 | NUR ---
NOTIFIED OF PATIENT'S HOME MED REC UP TO DATE. PT STATES HE NEEDS NORVASC, POTASSIUM, AND VITAMIN D TONIGHT. STATE HE WILL REVIEW MED REC.
[2019-10-14] VITALS: BP 103/48
--- NOTE | 2019-10-14 01:44 | NUR ---
RN CALLED TO CLARIFY WHAT TO GIVE PT FOR PAIN. PT HAS HX OF LIVER CIRRHOSIS, BUT CURRENT LFTs IN NORMAL RANGE. DISCUSSED CURRENT ORDERS. OKAY TO GIVE TYLENOL PER .
--- NOTE | 2019-10-14 01:49 | NUR ---
PO TYLENOL ADMINISTERED PER PRN ORDER FOR C/O PAIN IN L SHOULDER RATED 8/10 AND GENERALIZED DISCOMFORT. WILL MONITOR EFFECTIVENESS. CALL LIGHT IN REACH.
--- NOTE | 2019-10-14 02:21 | NUR ---
PT ASLEEP IN BED. EARLIER MEDICATIONS APPEAR EFFECTIVE. WILL MONITOR. CALL LIGHT IN REACH.
--- NOTE | 2019-10-14 05:00 | NUR ---
MEDICAL RECORDS FROM [place] REACHED OUT TO NOTIFY RN THAT PT HAS NOT HAD ARTERIAL/VENOUS STUDIES SINCE 2018. MADE AWARE.
--- NOTE | 2019-10-14 05:19 | NUR ---
SRIDHAR RESTREPO [id number] Please refer to the physician's history and physical for past medical history, comorbid conditions, and allergies. Diagnosis: CHF HEART PALPITATIONS SHORTNESS OF BREATH ON Fransisco Score: 18,AT RISK WOUND DESCRIPTIONS: Wound Number: 1 Location of the wound: Right 4th toe Thickness: Full Size: 1.1cm x 1.2cm x 0.1cm Tunneling: none Undermining: none Sinus Tract: none Presence of Exudate: Serousanguineous Amount: Light Color: Red Odor: None Periwound Skin Appearance: erythema Wound edges: approximated Pain (associated with wound): none at time of assessment pt states he doesn't have any feeling in his feet How does patient state this happened: Patient stated this started about 2 weeks ago when he got his toenails cut it was clipped on accident Surface the patient is resting on: Isoflex SKIN PREVENTION RECOMMENDATION: 1. Pressure redistribution support surface as appropriate 2. Elevate heels 3. Remove boots/TEDS every shift and reapply 4. Head of bed 30 degrees as tolerated 5. Assess nutrition and hydration 6. Manage moisture 7. Avoid the use of containment devices while in bed 8. Use absorptive products on surfaces limit layers of linens on bed 9. Turn and reposition every 1-2 hours in bed and every 1 hour in chair as tolerated 10. Weight shifts every 15 minutes while up in chair 11. Offloading with pillows or device to keep heels elevated off bed 12. Monitor skin at least every shift 13. Inspect under medical devices twice a day WOUND TREATMENT RECOMMENDATIONS: Podiatry is already on consult and treatment orders are in place at this time. Patient states he will continue to follow with podiatry upon discharge and already has appointment scheduled
--- NOTE | 2019-10-14 05:25 | NUR ---
DRESSING TO R 4TH TOE CHANGED PER ORDER.
--- NOTE | 2019-10-14 05:47 | NUR ---
PT STATES HE HAD ARTERIAL/VENOUS STUDIES HERE AT [facility] RECENTLY. STATES HE SAID HE HAD THEM DONE BY " FROM [facility]," NOT AT [facility]. PT STATES WENT IN THROUGH HIS NECK. AFTER REVIEWING CHART, IVC FILTER PLACED AROUND 07/04/29.
[2019-10-14 06:26] LABS: ALBUMIN 2.9 gm/dl (3.1-4.5); CREATININE 2.42 mg/dL (0.70-1.30); POTASSIUM 4.8 mmol/L (3.5-5.1); TOTAL PROTEIN 6.6 gm/dL (6.4-8.2)
[2019-10-14 06:28] LABS: ACT PARTIAL THROMBO TIME 27.2 SECONDS (20.0-32.1); INTERNATIONAL NORM RATIO 1.1 (2.0-3.5)
[2019-10-14 07:24] LABS: BASO % 0.4 % (0.0-1.0); EOS % 0.8 % (1.0-4.0); HEMATOCRIT 29.2 % (42.0-52.0); LYMPH # 0.7 10*3/uL (1.3-4.4); MEAN CELL VOLUME 85.1 fl (80.0-94.0); MEAN CORPUSCULAR HGB 24.5 pg (27.0-31.0); MEAN CORPUSCULAR HGB CONC 28.8 g/dl (33.0-37.0); MEAN PLATELET VOLUME 9.6 fl (9.6-12.3); MONO # 0.6 10*3/uL (0.1-1.0); MONO % 11.7 % (3.0-9.0); NEUT # 3.9 10*3/uL (2.3-7.9); NEUT % 73.9 % (47.0-73.0); PLATELET COUNT AUTOMATED 175 10*3/uL (130-400); RED BLOOD COUNT 3.43 10*6/uL (4.50-5.90); RED CELL DISTRI WIDTH 16.2 % (0-14.5); WHITE BLOOD COUNT 5.3 10*3/uL (4.8-10.8)
[2019-10-14 08:00] VITALS: BP 106/50
--- NOTE | 2019-10-14 09:00 | NUR ---
Figure Model in to talk to patient. Patient states lives at home with his . There are 0 steps in the home. There is a wheelchair ramp. Physician: [facility] Pharmacy: [facility] for short term medications, [facility] for maintenance medications Home health services: [facility], [facility] and [facility] previously but not currently Patient's level of ADLs: MINIMAL ASSIST Patient has working utilities: yes DME: cane, nebulizer, O2 @ 2L nc at bedtime, O2 supplier [facility] Follow-up physician's appointment after d/c: will be made by the hospitalist nurse director upon discharge Does patient want to access PORTAL?: no Discharge plan discussed with patient. He lives at home with his . He is independent in his ADLs and uses a cane for ambulation. Discussed home health care services and he denies any home needs at this time. He states he comes to the hospital once a week for paracentesis. When medically stable he will be discharged to home. He states his will transport on discharge. WARNER GALAN
--- NOTE | 2019-10-14 09:58 | NUR ---
Dr. Nieves JOHNSON notified of wound care recommendations.
[2019-10-14 12:00] VITALS: BP 110/48
[2019-10-14 16:00] VITALS: BP 114/59
[2019-10-14 20:00] VITALS: BP 110/44
--- NOTE | 2019-10-15 05:49 | NUR ---
PATIENT AWAKENS EASILY FOR AM MEDICATION AND LAB DRAW. PATIENT TOLERATED WELL. CALL LIGHT IS WITHIN REACH.
[2019-10-15 06:16] LABS: BASO % 0.4 % (0.0-1.0); EOS # 0.1 10*3/uL (0.0-0.4); HEMATOCRIT 27.9 % (42.0-52.0); LYMPH # 0.7 10*3/uL (1.3-4.4); LYMPH % 13.9 % (27.0-41.0); MEAN CORPUSCULAR HGB 24.7 pg (27.0-31.0); MEAN CORPUSCULAR HGB CONC 29.4 g/dl (33.0-37.0); MEAN PLATELET VOLUME 9.8 fl (9.6-12.3); MONO # 0.6 10*3/uL (0.1-1.0); MONO % 12.9 % (3.0-9.0); NEUT # 3.6 10*3/uL (2.3-7.9); NEUT % 71.6 % (47.0-73.0); PLATELET COUNT AUTOMATED 167 10*3/uL (130-400); RED BLOOD COUNT 3.32 10*6/uL (4.50-5.90); RED CELL DISTRI WIDTH 16.2 % (0-14.5)
[2019-10-15 06:49] LABS: ALBUMIN 2.8 gm/dl (3.1-4.5); CREATININE 2.33 mg/dL (0.70-1.30); POTASSIUM 4.4 mmol/L (3.5-5.1); TOTAL PROTEIN 6.5 gm/dL (6.4-8.2)
[2019-10-15 08:00] VITALS: BP 102/58
[2019-10-15 12:00] VITALS: BP 121/50
[2019-10-15 16:00] VITALS: BP 125/50
[2019-10-15 20:00] VITALS: BP 126/62
--- NOTE | 2019-10-15 21:57 | NUR ---
PRN TYLENOL GIVEN FOR C/O LEG PAIN. CALL LIGHT IS WITHIN REACH WILL MONITOR EFFECT.
--- NOTE | 2019-10-15 22:00 | NUR ---
PRN TYLENOL EFFECTIVE PER PATIENT.
[2019-10-16] VITALS: BP 117/59
[2019-10-16 06:15] LABS: BASO % 0.4 % (0.0-1.0); EOS # 0.1 10*3/uL (0.0-0.4); EOS % 1.3 % (1.0-4.0); LYMPH # 0.6 10*3/uL (1.3-4.4); LYMPH % 13.4 % (27.0-41.0); MEAN CELL VOLUME 83.6 fl (80.0-94.0); MEAN CORPUSCULAR HGB 25.4 pg (27.0-31.0); MEAN CORPUSCULAR HGB CONC 30.4 g/dl (33.0-37.0); MONO # 0.6 10*3/uL (0.1-1.0); MONO % 13.4 % (3.0-9.0); NEUT # 3.2 10*3/uL (2.3-7.9); NEUT % 71.1 % (47.0-73.0); PLATELET COUNT AUTOMATED 175 10*3/uL (130-400); RED BLOOD COUNT 3.35 10*6/uL (4.50-5.90); WHITE BLOOD COUNT 4.5 10*3/uL (4.8-10.8)
[2019-10-16 06:41] LABS: ALBUMIN 2.8 gm/dl (3.1-4.5); CREATININE 2.1 mg/dL (0.70-1.30); POTASSIUM 3.7 mmol/L (3.5-5.1); TOTAL PROTEIN 6.6 gm/dL (6.4-8.2)
[2019-10-16 08:00] VITALS: BP 103/87
--- NOTE | 2019-10-16 10:42 | NUR ---
TUBI TECHNOLOGY PROFESSIONAL REMOVED PER ORDER.
--- NOTE | 2019-10-16 11:30 | NUR ---
Patient resting quietly with no c/o discomfort. Respirations easy and regular. Vital signs stable. No overt distress. DENNY CAMACHO R
[2019-10-16 12:00] VITALS: BP 111/51
[2019-10-16 16:00] VITALS: BP 99/52
[2019-10-16 20:00] VITALS: BP 111/62
--- NOTE | 2019-10-16 21:33 | NUR ---
PATIENT MEDICATED WITH TYLENOL FOR COMPLAINTS OF LEFT KNEE PAIN. WILL MONITOR FOR EFFECTIVENESS. CALL LIGHT IN REACH.
--- NOTE | 2019-10-16 23:00 | NUR ---
TYLENOL EFFECTIVE AT THIS TIME. PATIENT RESTING QUIETLY WITH EYES CLOSED. NO SIGNS OR SYMPTOMS OF DISTRESS NOTED. CALL LIGHT IN REACH.
[2019-10-17] VITALS: BP 90/54
--- NOTE | 2019-10-17 07:00 | NUR ---
ARRIVED ON SHIFT, REPORT RECEIVED FROM OFFGOING NURSE, ASSUMED CARE OF PATIENT.
[2019-10-17 08:00] VITALS: BP 102/58; BP 106/53
--- NOTE | 2019-10-17 08:02 | NUR ---
INTROCDUCED SELF TO PATIENT, PATIENT IN RECLINER, WHEEL LOCKS ON, CALL LIGHT WITHIN REACH, NO NEEDS VOICED AT THIS TIME, WHITE BOARD UPDATED.
--- NOTE | 2019-10-17 08:03 | NUR ---
Shift chart check completed.
--- NOTE | 2019-10-17 09:25 | NUR ---
PATIENT C/O OF LEFT LEG AND SHOULDER PAIN, MEDICATED WITH TYLENOLM ORDERED PRN.
--- NOTE | 2019-10-17 10:25 | NUR ---
PATIENT REPORTS HE DOES HAVE SOME DECREASE IN PAIN FROM TYLENOL GIVEN X 1 HOUR AGO.
--- NOTE | 2019-10-17 10:30 | NUR ---
Buckle Stapler in to see patient. No new needs or request at this time. He denies any home needs. When medically stable he will be discharged to home.
[2019-10-17 11:32] LABS: ALBUMIN 2.8 gm/dl (3.1-4.5); CREATININE 1.95 mg/dL (0.70-1.30); POTASSIUM 2.9 mmol/L (3.5-5.1); TOTAL PROTEIN 6.7 gm/dL (6.4-8.2)
[2019-10-17 12:00] VITALS: BP 101/50
--- NOTE | 2019-10-17 13:40 | NUR ---
PHYSICAL THERAPY Eval received chart reviewed per MD and Podiatry arterial & doppler studies ordered to r/o DVT for RLE will follow once medically cleared. Brionna Toro PT
[2019-10-17 16:00] VITALS: BP 106/51
--- NOTE | 2019-10-17 19:40 | NUR ---
24 HR chart check completed.
[2019-10-17 20:00] VITALS: BP 121/49
[2019-10-18] VITALS: BP 106/50
--- NOTE | 2019-10-18 00:06 | NUR ---
TYLENOL ADMINISTERED FOR PT C/O LEFT SHOULDER AND LEFT KNEE PAIN RATED AN 8/10 ON THE PAIN SCALE. PT STATES THAT THIS IS CHRONIC PAIN. WILL CONTINUE TO MONITOR AND REASSESS.
--- NOTE | 2019-10-18 01:00 | NUR ---
PT STATES THAT THE TYLENOL "TOOK THE EDGE OFF". WILL CONTINUE TO MONITOR. NO SIGNS OF DISTRESS NOTED. RESPIRATIONS EASY AND UNLABORED.
--- NOTE | 2019-10-18 03:32 | NUR ---
24 HOUR CHART CHECK COMPLETE.
[2019-10-18 06:06] LABS: EOS # 0.1 10*3/uL (0.0-0.4); EOS % 1.1 % (1.0-4.0); HEMATOCRIT 27.6 % (42.0-52.0); LYMPH # 0.6 10*3/uL (1.3-4.4); MEAN CELL VOLUME 82.9 fl (80.0-94.0); MEAN CORPUSCULAR HGB 24.9 pg (27.0-31.0); MEAN CORPUSCULAR HGB CONC 30.1 g/dl (33.0-37.0); MEAN PLATELET VOLUME 9.9 fl (9.6-12.3); MONO # 0.6 10*3/uL (0.1-1.0); MONO % 12.2 % (3.0-9.0); NEUT # 3.5 10*3/uL (2.3-7.9); NEUT % 74.5 % (47.0-73.0); PLATELET COUNT AUTOMATED 179 10*3/uL (130-400); RED BLOOD COUNT 3.33 10*6/uL (4.50-5.90); RED CELL DISTRI WIDTH 16.2 % (0-14.5); WHITE BLOOD COUNT 4.7 10*3/uL (4.8-10.8)
[2019-10-18 06:27] LABS: ALBUMIN 2.7 gm/dl (3.1-4.5)
[2019-10-18 06:30] LABS: CREATININE 1.87 mg/dL (0.70-1.30); TOTAL PROTEIN 6.7 gm/dL (6.4-8.2)
[2019-10-18 08:00] VITALS: BP 111/51
--- NOTE | 2019-10-18 10:30 | NUR ---
PHYSICAL THERAPY Per medical meeting this AM pt to be discharged today to home with and HH services no further PT indicated at this time. Brionna Toro PT
[2019-10-18 11:58] VITALS: BP 116/47
[2019-10-18] MEDS ORDERED: BUMETANIDE1 MG PO ×2 (12:12→12:13)
[2019-10-18] MEDS ORDERED: Metolazone5 MG PO (12:12)
[2019-10-18] MEDS ORDERED: KLOR-CON M2020 ME1 PO (12:12)
--- NOTE | 2019-10-18 14:10 | NUR ---
Discharge instructions reviewed with patient/family. Patient receptive and verbalizes understanding. Follow-up care arranged. Written instructions given to patient/family. HEPLOCK DISCONTINUED. PT REFUSED WOUND PHOTO DUE TO ALREADY DRESSED WITH SHOES ON. PATIENT TAKEN OFF FLOOR VIA WHEELCHAIR. PT AWARE THAT HE NEEDS TO CALL PODIATRY AND VASCULAR SURGEON FOR FOLLOW UP, PICKED UP BY . OMERO BROCK
== END 2019-10-18 14:10 | disposition home or self-care (01) | DRG 291 ==
LOC: ED 08:17 → 4E 10:11 → EDHOLD 10:11 → 4E 10:20
PROVIDERS: Emergency Medicine; Internal Medicine; Registered Nurse; ADMIT Family Medicine
PROC: 0W9G3ZZ Drainage of Peritoneal Cavity, Percutaneous Approach (ICD-10-PCS; principal; 2019-10-13)
DX: I13.0 Hypertensive heart and chronic kidney disease with heart failure and stage 1 through stage 4 chronic kidney disease, or unspecified chronic kidney disease (principal); N17.0 Acute kidney failure with tubular necrosis; I50.23 Acute on chronic systolic (congestive) heart failure; R18.8 Other ascites; N18.4 Chronic kidney disease, stage 4 (severe); E44.0 Moderate protein-calorie malnutrition; I48.21 Permanent atrial fibrillation; K76.6 Portal hypertension; D64.9 Anemia, unspecified; E87.8 Other disorders of electrolyte and fluid balance, not elsewhere classified; R73.9 Hyperglycemia, unspecified; K74.60 Unspecified cirrhosis of liver; E83.41 Hypermagnesemia; J44.9 Chronic obstructive pulmonary disease, unspecified; E78.5 Hyperlipidemia, unspecified; I25.10 Atherosclerotic heart disease of native coronary artery without angina pectoris; E03.9 Hypothyroidism, unspecified; I71.6 Thoracoabdominal aortic aneurysm, without rupture; I34.0 Nonrheumatic mitral (valve) insufficiency; L97.519 Non-pressure chronic ulcer of other part of right foot with unspecified severity; R07.89 Other chest pain; I73.9 Peripheral vascular disease, unspecified; K57.90 Diverticulosis of intestine, part unspecified, without perforation or abscess without bleeding; I25.2 Old myocardial infarction; Z79.01 Long term (current) use of anticoagulants; Z86.73 Personal history of transient ischemic attack (TIA), and cerebral infarction without residual deficits; Z68.30 Body mass index [BMI] 30.0-30.9, adult; Z95.5 Presence of coronary angioplasty implant and graft; Z87.891 Personal history of nicotine dependence; Z88.8 Allergy status to other drugs, medicaments and biological substances; Z91.018 Allergy to other foods; Z79.899 Other long term (current) drug therapy; Z80.6 Family history of leukemia

== ENCOUNTER → 2019-10-20 | Day surgery (SDC) | payer MEDICARE, OTHER ==
[~2019-10-20] MED LIST changes: +KLOR-CON M2020 ME1 PO; +Metolazone5 MG PO
== END | disposition home or self-care (01) ==
DX: R18.8 Other ascites (principal); K74.60 Unspecified cirrhosis of liver

== ENCOUNTER → 2019-10-27 | Outpatient (CLI) | payer MEDICARE, OTHER ==
[2019-10-27 10:51] LABS: BASO % 0.3 % (0.0-1.0); EOS # 0.1 10*3/uL (0.0-0.4); HEMATOCRIT 29.5 % (42.0-52.0); LYMPH # 0.6 10*3/uL (1.3-4.4); LYMPH % 9.7 % (27.0-41.0); MEAN CELL VOLUME 80.6 fl (80.0-94.0); MEAN CORPUSCULAR HGB 24.6 pg (27.0-31.0); MEAN CORPUSCULAR HGB CONC 30.5 g/dl (33.0-37.0); MEAN PLATELET VOLUME 9.1 fl (9.6-12.3); MONO # 0.8 10*3/uL (0.1-1.0); MONO % 12.9 % (3.0-9.0); NEUT # 4.6 10*3/uL (2.3-7.9); NEUT % 75.8 % (47.0-73.0); PLATELET COUNT AUTOMATED 240 10*3/uL (130-400); RED BLOOD COUNT 3.66 10*6/uL (4.50-5.90); RED CELL DISTRI WIDTH 17.4 % (0-14.5); WHITE BLOOD COUNT 6.1 10*3/uL (4.8-10.8)
[2019-10-27 11:26] LABS: ALBUMIN 2.9 gm/dl (3.1-4.5); CREATININE 2.72 mg/dL (0.70-1.30); POTASSIUM 3.4 mmol/L (3.5-5.1); TOTAL PROTEIN 7.6 gm/dL (6.4-8.2)
== END | disposition home or self-care (01) ==
LOC: LAB 09:36
PROVIDERS: Registered Nurse
DX: N17.9 Acute kidney failure, unspecified (principal); K74.60 Unspecified cirrhosis of liver

== ENCOUNTER → 2019-10-27 | Day surgery (SDC) | payer MEDICARE, OTHER ==
[2019-10-27 11:00] VITALS: BP 120/63
== END | disposition home or self-care (01) ==
DX: R18.8 Other ascites (principal); K74.60 Unspecified cirrhosis of liver; I10 Essential (primary) hypertension; J44.9 Chronic obstructive pulmonary disease, unspecified; K21.9 Gastro-esophageal reflux disease without esophagitis; E78.5 Hyperlipidemia, unspecified; Z82.49 Family history of ischemic heart disease and other diseases of the circulatory system; Z82.3 Family history of stroke

== ENCOUNTER → 2019-10-28 | Outpatient (CLI) | payer MEDICARE, OTHER | END | disposition home or self-care (01) | LOC: RESCLI 01:14 | DX: J44.9 Chronic obstructive pulmonary disease, unspecified (principal); I11.0 Hypertensive heart disease with heart failure; I50.9 Heart failure, unspecified; L30.9 Dermatitis, unspecified; H40.9 Unspecified glaucoma; E55.9 Vitamin D deficiency, unspecified; E03.9 Hypothyroidism, unspecified; K74.60 Unspecified cirrhosis of liver; J30.2 Other seasonal allergic rhinitis; K21.9 Gastro-esophageal reflux disease without esophagitis; M19.90 Unspecified osteoarthritis, unspecified site; I25.10 Atherosclerotic heart disease of native coronary artery without angina pectoris; Z87.891 Personal history of nicotine dependence; Z79.899 Other long term (current) drug therapy; Z98.890 Other specified postprocedural states; Z95.828 Presence of other vascular implants and grafts ==

== ENCOUNTER → 2019-11-03 | Day surgery (SDC) | payer MEDICARE, OTHER | END | disposition home or self-care (01) | DX: R18.8 Other ascites (principal); K74.60 Unspecified cirrhosis of liver ==

== ENCOUNTER → 2019-11-10 | Day surgery (SDC) | payer MEDICARE, OTHER ==
[2019-11-10 12:00] VITALS: BP 132/71
== END | disposition home or self-care (01) ==
DX: R18.8 Other ascites (principal); K74.60 Unspecified cirrhosis of liver

== ENCOUNTER 2019-11-16 13:05 | Inpatient (IN) | payer MEDICARE, OTHER ==
[~2019-11-16] VITALS: Ht 180.3 cm; Wt 88.9 kg
[2019-11-16 13:26] VITALS: BP 122/66
[2019-11-16 13:34] LABS: BASO % 0.2 % (0.0-1.0); EOS # 0.1 10*3/uL (0.0-0.4); HEMATOCRIT 31.6 % (42.0-52.0); LYMPH # 0.5 10*3/uL (1.3-4.4); LYMPH % 6.2 % (27.0-41.0); MEAN CELL VOLUME 82.9 fl (80.0-94.0); MEAN CORPUSCULAR HGB 23.9 pg (27.0-31.0); MEAN CORPUSCULAR HGB CONC 28.8 g/dl (33.0-37.0); MEAN PLATELET VOLUME 9.5 fl (9.6-12.3); MONO # 0.8 10*3/uL (0.1-1.0); MONO % 9.2 % (3.0-9.0); NEUT # 6.8 10*3/uL (2.3-7.9); PLATELET COUNT AUTOMATED 229 10*3/uL (130-400); RED BLOOD COUNT 3.81 10*6/uL (4.50-5.90); RED CELL DISTRI WIDTH 18.7 % (0-14.5); WHITE BLOOD COUNT 8.2 10*3/uL (4.8-10.8)
[2019-11-16 13:50] LABS: ACT PARTIAL THROMBO TIME 26.2 SECONDS (20.0-32.1); INTERNATIONAL NORM RATIO 1.1 (2.0-3.5)
[2019-11-16 13:51] LABS: ALBUMIN 2.6 gm/dl (3.1-4.5); ALKALINE PHOSPHATASE 97 U/L (45-117); BUN 77 mg/dl (7-24); CHLORIDE 106 mmol/L (98-107); CREATININE 2.28 mg/dL (0.70-1.30); POTASSIUM 4.4 mmol/L (3.5-5.1); SGOT/AST 40 IU/L (3-35); SGPT/ALT 20 U/L (12-78); SODIUM 141 mmol/L (136-145); TOTAL PROTEIN 7.5 gm/dL (6.4-8.2); TROPONIN I < 0.015 ng/ml (<0.045)
[2019-11-16 14:20] VITALS: BP 116/56
[2019-11-16 15:32] VITALS: BP 124/68
[2019-11-16 16:31] VITALS: BP 131/67
[2019-11-16 16:45] VITALS: BP 144/49
[2019-11-16] MEDS ORDERED: FEXOFENADINE H180 M1 PO (17:37)
[2019-11-16] MEDS ORDERED: MULTI-VITAMIN1 EACH PO (17:41)
[2019-11-16 20:00] VITALS: BP 143/70
[2019-11-17] VITALS: BP 136/60
[2019-11-17 07:18] LABS: BASO % 0.2 % (0.0-1.0); EOS # 0.1 10*3/uL (0.0-0.4); EOS % 1.4 % (1.0-4.0); HEMATOCRIT 28.1 % (42.0-52.0); LYMPH # 0.6 10*3/uL (1.3-4.4); MEAN CELL VOLUME 82.9 fl (80.0-94.0); MEAN CORPUSCULAR HGB 23.9 pg (27.0-31.0); MEAN CORPUSCULAR HGB CONC 28.8 g/dl (33.0-37.0); MEAN PLATELET VOLUME 9.3 fl (9.6-12.3); MONO # 0.8 10*3/uL (0.1-1.0); NEUT # 4.9 10*3/uL (2.3-7.9); NEUT % 76.1 % (47.0-73.0); PLATELET COUNT AUTOMATED 175 10*3/uL (130-400); RED BLOOD COUNT 3.39 10*6/uL (4.50-5.90); RED CELL DISTRI WIDTH 18.9 % (0-14.5); WHITE BLOOD COUNT 6.4 10*3/uL (4.8-10.8)
[2019-11-17 07:42] LABS: ALBUMIN 2.5 gm/dl (3.1-4.5); CREATININE 2.03 mg/dL (0.70-1.30); POTASSIUM 3.6 mmol/L (3.5-5.1); TOTAL PROTEIN 6.6 gm/dL (6.4-8.2)
[2019-11-17 12:00] VITALS: BP 104/68
[2019-11-17 16:00] VITALS: BP 140/70
[2019-11-17 20:00] VITALS: BP 119/59
[2019-11-18] VITALS: BP 99/64
[2019-11-18 06:40] LABS: BASO % 0.2 % (0.0-1.0); EOS # 0.1 10*3/uL (0.0-0.4); EOS % 1.9 % (1.0-4.0); HEMATOCRIT 28.3 % (42.0-52.0); LYMPH # 0.7 10*3/uL (1.3-4.4); MEAN CELL VOLUME 82.5 fl (80.0-94.0); MEAN CORPUSCULAR HGB 23.9 pg (27.0-31.0); MEAN PLATELET VOLUME 9.5 fl (9.6-12.3); MONO # 0.7 10*3/uL (0.1-1.0); MONO % 11.3 % (3.0-9.0); NEUT # 4.5 10*3/uL (2.3-7.9); NEUT % 75.3 % (47.0-73.0); PLATELET COUNT AUTOMATED 178 10*3/uL (130-400); RED BLOOD COUNT 3.43 10*6/uL (4.50-5.90); RED CELL DISTRI WIDTH 19.1 % (0-14.5); WHITE BLOOD COUNT 5.9 10*3/uL (4.8-10.8)
[2019-11-18 07:10] LABS: POTASSIUM 3.6 mmol/L (3.5-5.1)
[2019-11-18 07:12] LABS: CREATININE 1.91 mg/dL (0.70-1.30)
[2019-11-18 12:00] VITALS: BP 109/60
[2019-11-18 16:00] VITALS: BP 105/61
[2019-11-18] MEDS ORDERED: KEFLEX500 M1 PO (17:12)
== END 2019-11-18 18:18 | disposition home health service (06) | DRG 432 ==
LOC: ED 13:05 → 5E 15:32 → EDHOLD 15:32 → 5E 15:32
PROVIDERS: Emergency Medicine; Internal Medicine; ADMIT Internal Medicine
PROC: 0W9G3ZZ Drainage of Peritoneal Cavity, Percutaneous Approach (ICD-10-PCS; principal; 2019-11-17)
DX: K74.60 Unspecified cirrhosis of liver (principal); N17.0 Acute kidney failure with tubular necrosis; J18.9 Pneumonia, unspecified organism; I50.23 Acute on chronic systolic (congestive) heart failure; I13.0 Hypertensive heart and chronic kidney disease with heart failure and stage 1 through stage 4 chronic kidney disease, or unspecified chronic kidney disease; R18.8 Other ascites; L03.116 Cellulitis of left lower limb; E44.0 Moderate protein-calorie malnutrition; J98.11 Atelectasis; D64.9 Anemia, unspecified; E83.41 Hypermagnesemia; R74.0 Nonspecific elevation of levels of transaminase and lactic acid dehydrogenase [LDH]; J45.909 Unspecified asthma, uncomplicated; I48.91 Unspecified atrial fibrillation; N18.9 Chronic kidney disease, unspecified; K21.9 Gastro-esophageal reflux disease without esophagitis; E87.8 Other disorders of electrolyte and fluid balance, not elsewhere classified; R73.9 Hyperglycemia, unspecified; E78.5 Hyperlipidemia, unspecified; E03.9 Hypothyroidism, unspecified; L01.00 Impetigo, unspecified; B96.1 Klebsiella pneumoniae [K. pneumoniae] as the cause of diseases classified elsewhere; I87.8 Other specified disorders of veins; I25.10 Atherosclerotic heart disease of native coronary artery without angina pectoris; K57.90 Diverticulosis of intestine, part unspecified, without perforation or abscess without bleeding; Z86.73 Personal history of transient ischemic attack (TIA), and cerebral infarction without residual deficits; I25.2 Old myocardial infarction; Z95.5 Presence of coronary angioplasty implant and graft; Z87.891 Personal history of nicotine dependence; Z80.6 Family history of leukemia; Z88.8 Allergy status to other drugs, medicaments and biological substances; Z91.018 Allergy to other foods; Z79.899 Other long term (current) drug therapy; Z68.27 Body mass index [BMI] 27.0-27.9, adult

== ENCOUNTER → 2019-11-24 | Day surgery (SDC) | payer MEDICARE, OTHER ==
[~2019-11-24] MED LIST changes: +FEXOFENADINE H180 M1 PO; +KEFLEX500 M1 PO; +MULTI-VITAMIN1 EACH PO
== END | disposition home or self-care (01) ==
DX: R18.8 Other ascites (principal); K74.60 Unspecified cirrhosis of liver

== ENCOUNTER → 2019-11-29 | Outpatient (CLI) | payer MEDICARE, OTHER | END | disposition home or self-care (01) | LOC: RESCLI 05:43 | DX: I13.0 Hypertensive heart and chronic kidney disease with heart failure and stage 1 through stage 4 chronic kidney disease, or unspecified chronic kidney disease (principal); I50.33 Acute on chronic diastolic (congestive) heart failure; N18.3 Chronic kidney disease, stage 3 (moderate); I25.10 Atherosclerotic heart disease of native coronary artery without angina pectoris; E55.9 Vitamin D deficiency, unspecified; J44.9 Chronic obstructive pulmonary disease, unspecified; D50.9 Iron deficiency anemia, unspecified; K74.60 Unspecified cirrhosis of liver; R18.8 Other ascites; I48.0 Paroxysmal atrial fibrillation; E03.9 Hypothyroidism, unspecified; G89.29 Other chronic pain; L03.119 Cellulitis of unspecified part of limb; Z79.899 Other long term (current) drug therapy; Z98.890 Other specified postprocedural states; Z87.890 Personal history of sex reassignment; Z88.8 Allergy status to other drugs, medicaments and biological substances ==

== ENCOUNTER → 2019-12-01 | Day surgery (SDC) | payer MEDICARE, OTHER | END | disposition home or self-care (01) | DX: R18.8 Other ascites (principal); K74.60 Unspecified cirrhosis of liver ==

== ENCOUNTER → 2019-12-08 | Outpatient (CLI) | payer MEDICARE, OTHER | END | disposition home or self-care (01) | LOC: EDSTATUS 11:00 | DX: R18.8 Other ascites (principal); K74.60 Unspecified cirrhosis of liver ==

== ENCOUNTER → 2019-12-14 | Outpatient (CLI) | payer MEDICARE, OTHER | END | disposition home or self-care (01) | LOC: RESCLI 01:28 | DX: I11.0 Hypertensive heart disease with heart failure (principal); I50.33 Acute on chronic diastolic (congestive) heart failure; G89.29 Other chronic pain; J30.2 Other seasonal allergic rhinitis; K74.60 Unspecified cirrhosis of liver; I25.10 Atherosclerotic heart disease of native coronary artery without angina pectoris; I48.0 Paroxysmal atrial fibrillation; J44.9 Chronic obstructive pulmonary disease, unspecified; E03.9 Hypothyroidism, unspecified; E55.9 Vitamin D deficiency, unspecified; Z79.899 Other long term (current) drug therapy; Z95.828 Presence of other vascular implants and grafts; Z98.890 Other specified postprocedural states; Z88.8 Allergy status to other drugs, medicaments and biological substances; Z87.891 Personal history of nicotine dependence ==

== ENCOUNTER → 2019-12-19 | Day surgery (SDC) | payer MEDICARE, OTHER | END | disposition home or self-care (01) | LOC: SDC 12-08 11:00 → RAD 12-08 11:00 → SDC 05:23 → RAD 10:30 → US 10:30 | PROVIDERS: ATTEND Internal Medicine Nephrology | DX: R18.8 Other ascites (principal) ==

== ENCOUNTER → 2020-01-03 | Outpatient (CLI) | payer MEDICARE, OTHER | END | disposition home or self-care (01) | LOC: RESCLI 00:56 | PROVIDERS: ATTEND Emergency Medicine | DX: I13.0 Hypertensive heart and chronic kidney disease with heart failure and stage 1 through stage 4 chronic kidney disease, or unspecified chronic kidney disease (principal); N18.3 Chronic kidney disease, stage 3 (moderate); I50.33 Acute on chronic diastolic (congestive) heart failure; I25.10 Atherosclerotic heart disease of native coronary artery without angina pectoris; E55.9 Vitamin D deficiency, unspecified; J44.9 Chronic obstructive pulmonary disease, unspecified; D50.9 Iron deficiency anemia, unspecified; K74.60 Unspecified cirrhosis of liver; R18.8 Other ascites; I48.0 Paroxysmal atrial fibrillation; E03.9 Hypothyroidism, unspecified; G89.29 Other chronic pain; S91.309A Unspecified open wound, unspecified foot, initial encounter; Z79.899 Other long term (current) drug therapy; Z87.891 Personal history of nicotine dependence; Z88.8 Allergy status to other drugs, medicaments and biological substances; X58.XXXA Exposure to other specified factors, initial encounter; Y93.89 Activity, other specified; Y92.89 Other specified places as the place of occurrence of the external cause; Y99.8 Other external cause status ==

== ENCOUNTER → 2020-01-25 | Emergency (ER) | payer MEDICARE, OTHER ==
[~2020-01-25] VITALS: Ht 180.3 cm; Wt 98.4 kg
[2020-01-25 12:47] LABS: BASO % 0.1 % (0.0-1.0); EOS % 0.2 % (1.0-4.0); LYMPH # 0.7 10*3/uL (1.3-4.4); LYMPH % 7.8 % (27.0-41.0); MEAN CELL VOLUME 92.6 fl (80.0-94.0); MEAN CORPUSCULAR HGB 26.7 pg (27.0-31.0); MEAN CORPUSCULAR HGB CONC 28.9 g/dl (33.0-37.0); MEAN PLATELET VOLUME 8.9 fl (9.6-12.3); MONO # 0.9 10*3/uL (0.1-1.0); MONO % 9.7 % (3.0-9.0); NEUT # 7.4 10*3/uL (2.3-7.9); NEUT % 81.4 % (47.0-73.0); PLATELET COUNT AUTOMATED 238 10*3/uL (130-400); RED BLOOD COUNT 3.78 10*6/uL (4.50-5.90); RED CELL DISTRI WIDTH 22.2 % (0-14.5)
[2020-01-25 13:02] LABS: ALBUMIN 2.9 gm/dl (3.1-4.5); CREATININE 3.33 mg/dL (0.70-1.30); TOTAL PROTEIN 7.6 gm/dL (6.4-8.2)
[2020-01-25 13:05] LABS: POTASSIUM 8.9 mmol/L (3.5-5.1)
== END ==
LOC: ED 11:06
PROVIDERS: Emergency Medicine
DX: I46.9 Cardiac arrest, cause unspecified (principal); Z91.018 Allergy to other foods; Z91.013 Allergy to seafood; Z88.8 Allergy status to other drugs, medicaments and biological substances; Z79.899 Other long term (current) drug therapy; Z87.891 Personal history of nicotine dependence